=== PATIENT | male | born 1950 | race African-American/Black ===

== ENCOUNTER → 2018-06-16 09:58 | Outpatient (CLI) | payer BC, SELFPAY ==
[2018-06-16 10:21] LABS: Blood Urea Nitrogen 14 mg/dL (7-18); Creatinine,Serum 0.79 mg/dL (0.70-1.30); Estimated Glomerular Filt Rate 97 ml/min (>60); GFR (African American) 118 ML/MIN (>60)
--- NOTE | 2018-06-16 10:40 | CT_ITS ---
CT abdomen pelvis w con CLINICAL INDICATION: ITS.REASON: HEAMATURIA ORDERING PHYSICIAN: Damian Saini MD PATIENT AGE: 68 years COMPARISON: None TECHNIQUE: Axial images obtained with sagittal and coronal reformats. All CT scans at the facility use one or more dose reduction, viz: automated exposure control, ma/kV adjustment per patient size (including targeted exams where dose is matched to indication, i.e. head), or iterative reconstruction technique. PROCEDURE: Oral Contrast: None IV Contrast: 75 mL's Optiray 350. FINDINGS: There is elevation of the left hemidiaphragm with minimal atelectatic change. The liver, spleen, adrenal glands, and pancreas have an unremarkable appearance. No renal or ureteral calculi. No hydronephrosis. A 1.8 cm ossific density is present along the lower pole of left kidney consistent with a renal cyst. No suspicious renal masses. The urinary bladder has an unremarkable appearance without obvious stone. The prostate is slightly enlarged at 4.5 cm. There is a moderate amount of retained colonic feces throughout the colon. No intestinal obstruction or free air is evident. There is a percutaneous gastrostomy tube in place which is in good position. No evidence of appendicitis or diverticulitis. There is a small umbilical hernia which contains fat. There is mild lumbar curvature convex right. IMPRESSION: 1. No evidence of renal or ureteral calculi. No suspicious renal mass 2. 1.8 cm left renal cyst. 3. Constipation
== END ==
PROVIDERS: Visit Provider Family Medicine
DX: R31.9 Hematuria, unspecified (principal)
CPT/HCPCS: 36415; 74177; 82565; 84520; Q9967

== ENCOUNTER → 2018-11-28 11:00 | Outpatient (POV) | payer BC, SELFPAY | PROVIDERS: Visit Provider Dermatology | DX: Z00.00 Encounter for general adult medical examination without abnormal findings (principal) ==

== ENCOUNTER 2023-10-26 15:00 | Outpatient (CLI) | payer BC, SELFPAY ==
--- NOTE | 2023-10-26 15:14 | XR_ITS ---
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 The right lung is clear. There is no evidence of effusion or other pleural disease. The mediastinum has a normal appearance. The cardiac silhouette is unremarkable. IMPRESSION: No acute process. Reviewed, Interpreted and Dictated by Nba Payne MD Transcribed by Taryn Javier Authenticated and [facility]
== END 2023-10-26 23:59 | disposition home or self-care (01) ==
LOC: RAD 15:05
PROVIDERS: PCP Family Medicine
DX: R06.09 Other forms of dyspnea (principal)
CPT/HCPCS: 71046

== ENCOUNTER 2024-01-23 09:16 | Outpatient (CLI) | payer BC, SELFPAY ==
[2024-03-13 11:15] LABS: Miscellaneous Test SCANNED IMAGE
== END 2024-01-23 23:59 | disposition home or self-care (01) ==
LOC: LAB 09:29
PROVIDERS: PCP Family Medicine
DX: J47.9 Bronchiectasis, uncomplicated (principal)
CPT/HCPCS: 87116; 87206

== ENCOUNTER 2024-06-16 19:07 | Observation (INO) | payer BC, SELFPAY ==
[2024-06-16] VITALS (12 sets, daily range): BP systolic 116–154; BP diastolic 67–83; PULSE 106–118; RESP 16–35; TEMP 38.9–39.4; O2SAT 87–98; BMI 21.9; BMI 22.2
--- NOTE | 2024-06-16 19:27 | ECG_ITS ---
APPROVED REPORT Exam: Resting ECG HR:116 bpm ECG Measurements Heart Rate 116 AXES MT 166 P 66 QRSd 89 QRS -23 QT 317 T 73 QTc 386 Conclusion SINUS TACHYCARDIA POSSIBLE LEFT ATRIAL ENLARGEMENT [-0.1mV P-WAVE IN V1/V2] BORDERLINE LEFT AXIS DEVIATION [QRS AXIS < -20] NONSPECIFIC ST & T-WAVE ABNORMALITY ABNORMAL RHYTHM ECG UNCONFIRMED REPORT Electronically signed by : Nicole Meadows, 06/17/2024 00:11:17
--- NOTE | 2024-06-16 19:27 | XR_ITS ---
PROCEDURE INFORMATION: Exam: XR Chest Exam date and time: 06/16/2024 7:58 PM Age: 74 years old Clinical indication: Shortness of breath; Additional info: SOA cp TECHNIQUE: Imaging protocol: Radiologic exam of the chest. Views: 2 views. COMPARISON: CR XR CHEST 2V 10/26/2023 3:22 PM FINDINGS: Lungs: Lower lobe predominant multifocal opacities. Pleural spaces: No pleural effusion. No pneumothorax. Heart/Mediastinum: No cardiomegaly. Bones/joints: No acute findings. IMPRESSION: Lower lobe predominant multifocal opacities, findings are segment pulmonary edema or infection in the acute setting.
--- NOTE | 2024-06-16 19:28 | ED_ITS ---
<Statement entered by Nicole Meadows MD - 06/16/24 22:12> I was consulted by the JAMI, and we discussed the complexity of problems being addressed. I approved the treatment and management plan for this patient's care in the emergency department, thus performing a substantive portion of the medical decision making. Nicole Meadows MD Discharge Plan Disposition Patient Disposition: Admitted Chief Complaint: Shortness of Breath/Dyspnea Clinical Impressions Clinical Impression: Pneumonia Qualifiers: Pneumonia type: due to unspecified organism Laterality: bilateral Lung location: unspecified part of lung Qualified Code(s): J18.9 - Pneumonia, unspecified organism Discharge ED Provider: Nicole Meadows HPI General Chief Complaint: Shortness of Breath/Dyspnea Stated Complaint: pain when breathing,cough,SOA Time Seen by Provider: 06/16/24 19:22 Mode of Arrival: Ambulatory Source of Information: Spouse and Relative Limitations: No Limitations Description of Symptoms (Recalled from ER Triage Doc. by RN): Patient presents ambulatory to triage with his and daughter. Patient states for the last two days he has been coughing and short of air. Denies N/V. Denies any changes in bowel habits. Patient with a G-tube s/p cancer diagnosis in 2010. States he has had multiple episodes of aspiration since. History of Present Illness HPI narrative: Patient is a 74-year-old male who presents to the ED with complaints of shortness of breath x 3 days. Patient states he frequently gets aspiration pneumonia. He is febrile upon arrival. Related Data Allergies Allergy/AdvReac Type Severity Reaction Status Date / Time No Known Allergies Allergy Verified 06/16/24 19:19 [facility] Disclaimer: The information contained in this section may have been updated after the patient was seen, as this information can be updated by other users. Social History Smoking Status: Never smoker alcohol intake: never current occupational status: unemployed Travel in the last 8 weeks: None ROS Obtained: Yes Systems reviewed as appropriate & no additional complaints except as documented Physical Exam General General appearance: alert Head Head exam: atraumatic and normocephalic Eye Eye exam: Present normal appearance and PERRL; Absent nystagmus ENT ENT exam: Present normal exam Neck Neck exam: Present normal inspection Chest Chest inspection: Present normal inspection and symmetric chest wall rise; Absent tenderness Respiratory Respiratory exam: Present respiratory distress and other (Decreased breath sounds on the right) Cardiovascular Cardiovascular exam: Present tachycardia Abdominal Exam Abdominal exam: Present soft and normal bowel sounds; Absent tenderness Extremities Exam Extremities exam: Present normal inspection and full ROM Back Exam Back exam: Present normal inspection and full ROM; Absent tenderness Neurological Exam Neurological exam: Present alert and oriented X3 Psychiatric Psychiatric exam: Present normal affect and normal mood Skin Skin exam: Present warm and dry HEART Score HEART Score HEART Score assessment performed?: Yes History (anamnesis): Slightly suspicious ECG: Non-specific disturbance Age: >65 years Risk factors: 1-2 risk factors Troponin: </= normal limit HEART Score: 4 Critical Care Critical Care Time Critical Care Time: No Medical Decision Making Hari Inquiry Pt receiving controlled substance: No Hari was queried for this patient: No Vital Signs Vital Signs: 06/16/24 19:12 06/16/24 19:59 06/16/24 20:00 Temperature 102.0 F H Temperature Source Oral Pulse Rate 110 H 109 H Pulse Rate [Radial] 117 H Respiratory Rate 20 17 17 Blood Pressure 130/76 Blood Pressure [L Arm] 116/67 Blood Pressure Mean [L Arm] 83 Blood Pressure Source [L Arm] Automatic Cuff 02 Sat by Pulse Oximetry 87 L 95 96 Oxygen Delivery Method Room Air 06/16/24 20:42 Temperature Temperature Source Pulse Rate 110 H Pulse Rate [Radial] Respiratory Rate Blood Pressure Blood Pressure [L Arm] Blood Pressure Mean [L Arm] Blood Pressure Source [L Arm] 02 Sat by Pulse Oximetry Oxygen Delivery Method Lab Data Labs: Lab Results 06/16/24 19:21: SARS-CoV-2 (PCR) Not detected, Influenza A Untype (PCR) Not detected, Influenza Type B (PCR) Not detected 06/16/24 19:27: VBG pH 7.42 H, VBG pCO2 45.8, VBG pO2 23.9 L, VBG HCO3 29.1, VBG Total CO2 30.5 H, VBG O2 Saturation 41.1 L, VBG Base Excess 4.6 H, VBG Lactic Acid 1.5 06/16/24 19:36: PT 12.6 H, INR 1.14 H, APTT 19.6 L, Sodium 136, Potassium 4.1, Chloride 99, Carbon Dioxide 29, Anion Gap 12.1, BUN 14, Creatinine 0.90, Estimated Creat Clear 52, Estimated GFR 82, Est GFR ( Amer) 100, Glucose 132 H, Calcium 9.4, Total Bilirubin 0.6, AST 34, ALT 23, Alkaline Phosphatase 70, Troponin I < 0.01, NT-Pro-B Natriuret Pep 231, Total Protein 8.3 H, Albumin 4.0, Globulin 4.3 H, Albumin/Globulin Ratio 0.9 L, Procalcitonin 1.07 06/16/24 19:54: WBC 19.4 H, RBC 4.20 L, Hgb 12.0 L, Hct 36.2 L, MCV 86.2, MCH 28.6, MCHC 33.1, RDW 14.1, Plt Count 239, MPV 10.8 H, Neut % (Auto) 90.9 H, L ymph % (Auto) 2.0 L, [place] % (Auto) 6.1, Eos % (Auto) 0.2, Baso % (Auto) 0.2, N eut # (Auto) 17.6 H, Lymph # (Auto) 0.4 L, [place] # (Auto) 1.2 H, Eos # (Auto) 0.0, Baso # (Auto) 0.0, Total Counted 100, Neutrophils % (Manual) 89 H, L ymphocytes % (Manual) 4 L, Monocytes % (Manual) 7, Platelet Estimate Normal, RBC Morphology Normal, Lactate 1.5 06/16/24 20:55: Urine Color Yellow, Urine Appearance Clear, Urine pH 7.5, Ur Specific [place] <= 1.005, Urine Protein Negative, Urine Glucose (UA) Negative, Urine Ketones Negative, Urine Blood Trace-i, Urine Nitrate Negative, Urine Bilirubin Negative, Urine Urobilinogen 0.2, Ur Leukocyte Esterase Negative, Urine RBC Occasional, Urine WBC None, Ur Squamous Epith Cells Occasional, Urine Bacteria None 06/16/24 19:54 06/16/24 19:36 Response Orders (Tests/Meds): ED MEDICATIONS Generic Name Dose Route Start Last Admin Trade Name Freq PRN Reason Stop Dose Admin Lactated Ringer's 1,740 mls @ 870 mls/hr 06/16/24 20:22 06/16/24 20:25 Lactated Ringer's 1000 Ml Bag 30 ml/kg infuse over 2 hr (1740 ml) 06/16/24 22:21 870 mls/hr IV Administration .Q2H ONE Discontinued Medications Generic Name Dose Route Start Last Admin Trade Name Freq PRN Reason Stop Dose Admin Albuterol/Ipratropium 3 ml 06/16/24 19:32 06/16/24 20:41 Ipratropium/Albuterol 3 Ml Neb IH 06/16/24 19:33 3 ml ONCE ONE Administration Cefepime HCl 2 gm/ Sodium 100 mls @ 200 mls/hr 06/16/24 20:25 06/16/24 20:33 Chloride IV 06/16/24 20:54 200 mls/hr ONCE ONE Administration Vancomycin HCl 1,000 mg/ 250 mls @ 125 mls/hr 06/16/24 20:27 06/16/24 20:47 Sodium Chloride IV 06/16/24 20:28 125 mls/hr ONCE ONE Administration Iopamidol 75 ml 06/16/24 20:11 06/16/24 20:22 Iopamidol-370 (76%);100ml Bottle IV 06/16/24 20:12 75 ml ONCE ONE Administration Sodium Chloride 50 ml 06/16/24 20:11 06/16/24 20:22 0.9 % Sodium Chloride 50 Ml Vial IV 06/16/24 20:12 50 ml ONCE ONE Administration Sodium Chloride 10 ml 06/16/24 20:11 06/16/24 20:22 Sodium Chloride 0.9% 10ml Syr (Rad Only) IV 06/16/24 20:12 10 ml ONCE ONE Administration ORDERS Category Date Time Status CTA Chest [CT angio chest PE protocol] Stat Cat Scan 06/16/24 19:29 Completed CXR 2 view (NOT portable) [XR chest 2V] Stat Exams 06/16/24 19:27 Completed Activated Partial Thrombo Time Stat Lab 06/16/24 19:36 Completed BNP [NT Pro Brain Natriuretic Pep.] Stat Lab 06/16/24 19:36 Completed Complete Blood Count Auto Diff Stat Lab 06/16/24 19:54 Completed Comprehensive Metabolic Panel Stat Lab 06/16/24 19:36 Completed Lactic Acid Stat Lab 06/16/24 19:54 Completed Procalcitonin Stat Lab 06/16/24 19:36 Completed Prothrombin Time INR Stat Lab 06/16/24 19:36 Completed Rapid PCR Covid and Flu A/B Stat Lab 06/16/24 19:21 Completed Trop I [Troponin I] Stat Lab 06/16/24 19:36 Completed Troponin I Q3H Lab 06/16/24 23:15 Ordered Troponin I Q3H Lab 06/17/24 02:15 Ordered Urinalysis and Microscopic Stat Lab 06/16/24 20:55 Completed Blood Culture Stat Micro 06/16/24 19:54 Received VBG [Venous Blood Gas] Stat RT 06/16/24 19:27 Completed MDM Narrative Medical Decision Narrative: In summary, patient is a 74-year-old male PMHx pulmonary fibrosis, tonsillar cancer in 2010, pneumatosis, who presents to the ED for shortness of breath and fever. Patient's spouse reports that patient frequently gets aspiration pneumonia. Patient follows with for his pulmonary fibrosis, most recent CT scan was in April. Upon initial exam, patient is alert, oriented and cooperative. Patient is hemodynamically stable. Physical exam remarkable for decreased breath sounds on the right. Patient is tachycardic, O2 saturation on room air 88%, he is tachypneic. Differential diagnosis includes ACS, pneumonia, dissection, no pneumothorax, infectious process, among others. Initial workup will be conducted with hematologic labs, EKG, chest x-ray, CT and respiratory swab. EKG remarkable for sinus tachycardia rate 116, QT 386, no STEMI. Initial inventions include placing patient on 3L NC, DuoNeb administration. Sepsis bolus administered. Initial workup reviewed by me. Hematologic labs remarkable for CMP unremarkable for any actual abnormalities. CBC remarkable for leukocytosis, WBC 19.4, stable H&H. COVID and influenza swab negative. Troponin < 0.01. I independently and informally interpreted the chest x-ray as right-sided pneumonia. See final read. Vanc & cefepime started. Chest CT remarkable for no pulmonary embolism, multifocal interstitial and consolidative opacities Due to multifocal pneumonia and new oxygen requirement patient admitted to hospital medicine for further evaluation.
--- NOTE | 2024-06-16 19:29 | CT_ITS ---
PROCEDURE INFORMATION: Exam: CTA Chest With Contrast Exam date and time: 06/16/2024 8:20 PM Age: 74 years old Clinical indication: Shortness of breath; Additional info: MERLE cheng TECHNIQUE: Imaging protocol: Computed tomographic angiography of the chest with contrast. Exam focused on the arteries. 3D rendering (Not supervised by radiologist): MIP and/or 3D reconstructed images were created by the technologist. Radiation optimization: All CT scans at this facility use at least one of these dose optimization techniques: automated exposure control; mA and/or kV adjustment per patient size (includes targeted exams where dose is matched to clinical indication); or iterative reconstruction. Contrast material: ISOVUE; Contrast volume: 75 ml; Contrast route: INTRAVENOUS (IV); COMPARISON: CR XR CHEST 2V 06/16/2024 7:58 PM FINDINGS: Tubes, catheters and devices: Percutaneous gastrostomy tube terminating within the stomach. Pulmonary arteries: Limited evaluation of segmental/subsegmental pulmonary arteries secondary to motion artifact. Within limits of the exam, no definitively identifiable pulmonary artery embolism. Aorta: Mild atherosclerosis. No aortic aneurysm. No aortic dissection. Lungs: Diffuse multifocal interstitial and consolidative opacities. Mild cylindrical bronchiectasis. Pleural spaces: Unremarkable. No pneumothorax. No pleural effusion. Heart: Unremarkable. No cardiomegaly. No pericardial effusion. Lymph nodes: Unremarkable. No enlarged lymph nodes. Bones/joints: Degenerative changes. No acute fracture. Soft tissues: Unremarkable. IMPRESSION: 1. Limited evaluation of segmental/subsegmental pulmonary arteries secondary to motion artifact. Within limits of the exam, no definitively identifiable pulmonary artery embolism. 2. Diffuse multifocal interstitial and consolidative opacities, which may be seen with pulmonary edema, infection, or interstitial pneumonia in the acute setting. Recommend follow-up imaging after treatment to ensure resolution.
[2024-06-16 19:32] LABS: Coronavirus 19, PCR Not Detected (NotDetected); Influenza A, PCR Not Detected (NotDetected); Influenza B, PCR Not Detected (NotDetected)
[2024-06-16 19:55] LABS: Chloride 99 mmol/L (98-107)
[2024-06-16 19:56] LABS: Potassium 4.1 mmoL/L (3.5-5.1); Sodium 136 mmol/L (136-145)
[2024-06-16 19:58] LABS: Alanine Aminotransferase 23 U/L (12-78); Anion Gap 12.1 mEq/L (5-15); Aspartate Amino Transferase 34 U/L (17-59); Blood Urea Nitrogen 14 mg/dl (9-20); Carbon Dioxide 29 mmol/L (22.0-30.0); Creatinine Clearance Estimated 52 mL/min (50-200); Estimated Glomerular Filt Rate 82 ml/min (>60); GFR (African American) 100 ML/MIN (>60)
[2024-06-16 19:59] LABS: Albumin/Globulin Ratio 0.9 (1.1-1.8); Alkaline Phosphatase 70 U/L (38-126); Bilirubin,Total 0.6 mg/dl (0.2-1.3); Calcium 9.4 mg/dl (8.4-10.2); Globulin 4.3 g/dL (1.3-3.2); Glucose 132 mg/dl (74-100); Total Protein,Serum 8.3 g/dl (6.3-8.2)
[2024-06-16 20:01] LABS: Basophils % 0.2 % (0.1-2.0); Eosinophils % 0.2 % (0.1-12.0); Hematocrit 36.2 % (42.0-52.0); Lymphocytes # 0.4 K/mm3 (0.7-4.5); Mean Corpuscular HGB Conc 33.1 g/dL (31.8-35.4); Mean Corpuscular Hemoglobin 28.6 pg (27.0-31.2); Mean Corpuscular Volume 86.2 fl (80-94); Mean Platelet Volume 10.8 fl (7.4-10.4); Monocytes # 1.2 K/mm3 (0.1-1.0); Monocytes % 6.1 % (1.7-9.3); Neutrophils # 17.6 K/mm3 (1.8-7.8); Neutrophils % 90.9 % (37.0-80.0); Platelet Count 239 K/mm3 (142-424); Red Cell Distribution Width 14.1 % (11.5-17.5); White Blood Count 19.4 K/mm3 (4.8-10.8)
[2024-06-16 20:08] LABS: Lactic Acid 1.5 mmol/L (0.7-2.1); MANUAL DIFFERENTIAL MANUAL DIFFERENTIAL (MANUAL DIFF)
[2024-06-16 20:16] LABS: INR 1.14 (0.9-1.1); Prothrombin Time 12.6 seconds (10.1-12.5)
[2024-06-16 20:18] LABS: Activated Partial Thrombo Time 19.6 seconds (22.8-30.6)
[2024-06-16] MEDS: SODIUM CHLORIDE 0.9% 10ML SYR (RAD ONLY) 10 ML IV (20:22)
[2024-06-16] MEDS: 0.9 % SODIUM CHLORIDE 50 ML VIAL IV (20:22)
[2024-06-16] MEDS: IOPAMIDOL-370 (76%);100ML BOTTLE 75 ML IV (20:22)
[2024-06-16 20:24] LABS: NT Pro Brain Natriuretic Pep. 231 pg/mL (0-450)
[2024-06-16] MEDS: LACTATED RINGERS 870 ML IV (20:25)
[2024-06-16 20:27] LABS: Troponin I < 0.01 ng/ml (0.00-0.034)
--- NOTE | 2024-06-16 20:31 | PC.NURSE ---
Gordon with [facility] pharmacy notified for vanc consult; verified that Vancomycin 1gram is okay to give.
[2024-06-16 20:33] LABS: Lactate Venous 1.5 mmol/L (0.4-2.0); VBG Base Excess 4.6 mmol/L (-2.4-2.3); VBG HCO3 29.1 mmol/L (23-30); VBG Oxygen Saturation 41.1 % (50-70); VBG PCO2 45.8 mmol/L (35-51); VBG PH 7.42 mmol/L (7.31-7.41); VBG PO2 23.9 mmol/L (28-40); VBG Total CO2 30.5 mmol/L (23-27)
[2024-06-16] MEDS: CEFEPIME HCL 2 GM in 0.9 % SODIUM CHLORIDE 100 ML IV (20:33)
[2024-06-16] MEDS: IPRATROPIUM/ALBUTEROL 3 ML NEB IH (20:41)
[2024-06-16] MEDS: VANCOMYCIN HCL 1,000 MG in 0.9 % SODIUM CHLORIDE 250 ML 125 MG IV (20:47)
[2024-06-16 20:58] LABS: Lymphocytes % 4 % (10-50); Monocytes % 7 % (2-9); Neutrophils % 89 % (42-76); Total Cells Counted 100
[2024-06-16 20:59] LABS: Platelet Estimate Normal; RBC Morphology Normal
[2024-06-16 21:02] LABS: Microscopic, Urine URINE MICROSCOPIC (MICROSCOPIC)
[2024-06-16 21:04] LABS: Procalcitonin 1.07 ng/mL (0.0-2.0)
[2024-06-16 21:05] LABS: Appearance,Urine CLEAR (Clear); Bilirubin,Urine Negative (Negative); Blood, Urine TRACE-I (Negative); Color,Urine YELLOW (Yellow); Glucose,Urine (UA) Negative (Negative); Ketones,Urine Negative (Negative); Leukocyte Esterase,Urine Negative (Negative); Nitrate,Urine Negative (Negative); PH,Urine 7.5 (5.0-8.5); Protein,Urine Negative (Negative); Specific Gravity, Urine <= 1.005 (1.005-1.030); Urobilinogen,Urine 0.2 EU/dl (0.2)
[2024-06-16 21:16] LABS: RBC,Urine Occasional #/hpf (0-3); Squamous Epithelial Cell,Urine Occasional #/hpf (0-5)
[2024-06-16] MEDS: ACETAMINOPHEN 1,000MG/100ML VIAL 1000 MG IV (21:36)
--- NOTE | 2024-06-16 21:42 | PC.NURSE ---
report called to Marin HUFFMAN
--- NOTE | 2024-06-16 22:10 | PC.NURSE ---
Patient arrived to floor via stretcher from ED at 22:00.
[2024-06-16 22:18] LABS: Adenovirus,PCR Not Detected (NotDetected); Bordetella Pertussis Not Detected (NotDetected); Chlamydophila Pneumoniae, PCR Not Detected (NotDetected); Coronavirus 19, PCR Not Detected (NotDetected); Coronavirus 229E Not Detected (NotDetected); Coronavirus NL63 Not Detected (NotDetected); Coronavirus OC43 Not Detected (NotDetected); Coronovirus HKU1,PCR Not Detected (NotDetected); Human Metapneumovirus Not Detected (NotDetected); Influenza A, PCR Not Detected (NotDetected); Influenza AH1, 2009 Not Detected (NotDetected); Influenza AH1, PCR Not Detected (NotDetected); Influenza AH3,PCR Not Detected (NotDetected); Influenza B, PCR Not Detected (NotDetected); Mycoplasma Pneumoniae, PCR Not Detected (NotDetected); Parainfluenza 1, PCR Not Detected (NotDetected); Parainfluenza 2, PCR Not Detected (NotDetected); Parainfluenza 3, PCR Not Detected (NotDetected); Parainfluenza 4, PCR Not Detected (NotDetected); Respiratory Syncytial Virus Not Detected (NotDetected)
[2024-06-16 23:45] LABS: Troponin I < 0.01 ng/ml (0.00-0.034)
--- NOTE | 2024-06-16 23:45 | P.HP_ITS ---
<Statement entered by Isaac Gautam MD - 06/19/24 14:24> I personally examined the patient and agree with the plan of care outlined by the MECHANICAL DRAFTER. History of Present Illness *Admission Date: 06/16/24 *Reason for visit:: Shortness of breath and cough *History of present illness: This is a 74-year-old male with past medical history of tonsillar cancer, pulmonary fibrosis, pneumatosis who presents emergency department today with complaints of cough and fever. He presents with his and daughter and aid in his collateral although patient can give good history. 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 States that he gets most of his nutrition through his [employer] button. Has intermittent problems with silent aspiration. States that he started having productive cough and chills in the last several days.. He recently had follow-up with check viewer at for his pulmonary fibrosis, last CT scan was in April. Upon arrival to the emergency department he was noted to be tachycardic, mildly hypoxic and tachypneic. Also noted to have a fever of 102.0. Emergency department workup notable for leukocytosis with a white blood cell count of 19, lactic of 1.5, procalcitonin of 1.07. CT chest imaging notable for diffuse multifocal interstitial and consolidative opacities which may represent pulmonary edema or infection. Respiratory pathogen panel negative. Given the above-mentioned findings, blood cultures were obtained and antibiotics were initiated. He is admitted to the hospitalist. [facility] Disclaimer: The information contained in this section may have been updated after the patient was seen, as this information can be updated by other users. Medical History (Updated 06/16/24 @ 23:56 by DARRYL Morgan) Feeding by G-tube Tonsil cancer Surgical History (Updated 06/16/24 @ 22:52 by Katina Christianson RN) History of tonsillectomy History of appendectomy Social History (Updated 06/16/24 @ 22:52 by Katina Christianson RN) Smoking Status: Never smoker alcohol intake: never current occupational status: unemployed Travel in the last 8 weeks: None Have you lived/traveled outside [place] in past 30 days?: No Contact w/someone who lives/traveled outside US past 30 days?: No Exposure to someone with infectious disease in past 14 days?: No Do you have a fever (greater than 100.4 F or 38 C)?: No Have you tested positive for COVID-19: No Exposed to someone with COVID-19 in past 14 days?: No Do you have a sore throat?: No Do you have a cough?: Yes Do you have any weakness?: Yes Are you experiencing any nausea/vomitting?: No Do you have any diarrhea?: No Are you experiencing any unusual bleeding?: No Do you have any muscle aches/pain?: No Do you have any abdominal pain?: No Are you experiencing loss of taste or smell?: No Other Medical History Have you received the Flu Vaccine for this season: No Have you received the Pneumonia Vaccine: Yes Review of Systems Review of Systems Review of systems:: pertinent systems reviewed and negative unless documented below Review of systems (narrative): Negative except for HPI Meds Home Medications and Allergies New Prescriptions to Start Prescriptions: Allergies Allergy/AdvReac Type Severity Reaction Status Date / Time No Known Allergies Allergy Verified 06/16/24 19:19 Exam Data for Last 24 hours Vital signs and Labs for Last 24 Hours: Temp Pulse Resp BP Pulse Ox O2 Del Method O2 Flow Rate 102.6 F H 106 H 16 143/75 H 98 Nasal Cannula 2 06/16/24 22:12 06/16/24 22:12 06/16/24 22:12 06/16/24 22:12 06/16/24 22:12 06/16/24 22:12 06/16/24 22:12 Laboratory Results - last 24 hr 06/16/24 19:21: SARS-CoV-2 (PCR) Not detected, Influenza A Untype (PCR) Not detected, Influenza Type B (PCR) Not detected 06/16/24 19:27: VBG pH 7.42 H, VBG pCO2 45.8, VBG pO2 23.9 L, VBG HCO3 29.1, VBG Total CO2 30.5 H, VBG O2 Saturation 41.1 L, VBG Base Excess 4.6 H, VBG Lactic Acid 1.5 06/16/24 19:36: PT 12.6 H, INR 1.14 H, APTT 19.6 L, Sodium 136, Potassium 4.1, Chloride 99, Carbon Dioxide 29, Anion Gap 12.1, BUN 14, Creatinine 0.90, Estimated Creat Clear 52, Estimated GFR 82, Est GFR ( Amer) 100, Glucose 132 H, Calcium 9.4, Total Bilirubin 0.6, AST 34, ALT 23, Alkaline Phosphatase 70, Troponin I < 0.01, NT-Pro-B Natriuret Pep 231, Total Protein 8.3 H, Albumin 4.0, Globulin 4.3 H, Albumin/Globulin Ratio 0.9 L, Procalcitonin 1.07 06/16/24 19:54: WBC 19.4 H, RBC 4.20 L, Hgb 12.0 L, Hct 36.2 L, MCV 86.2, MCH 28.6, MCHC 33.1, RDW 14.1, Plt Count 239, MPV 10.8 H, Neut % (Auto) 90.9 H, Lymph % (Auto) 2.0 L, [place] % (Auto) 6.1, Eos % (Auto) 0.2, Baso % (Auto) 0.2, Neut # (Auto) 17.6 H, Lymph # (Auto) 0.4 L, [place] # (Auto) 1.2 H, Eos # (Auto) 0.0, Baso # (Auto) 0.0, Total Counted 100, Neutrophils % (Manual) 89 H, Lymphocytes % (Manual) 4 L, Monocytes % (Manual) 7, Platelet Estimate Normal, RBC Morphology Normal, Lactate 1.5 06/16/24 20:55: Urine Color Yellow, Urine Appearance Clear, Urine pH 7.5, Ur Specific [place] <= 1.005, Urine Protein Negative, Urine Glucose (UA) Negative, Urine Ketones Negative, Urine Blood Trace-i, Urine Nitrate Negative, Urine Bilirubin Negative, Urine Urobilinogen 0.2, Ur Leukocyte Esterase Negative, Urine RBC Occasional, Urine WBC None, Ur Squamous Epith Cells Occasional, Urine Bacteria None 06/16/24 23:15: Troponin I < 0.01 I & O for Last 24 hours: Intake & Output 06/13/24 06/14/24 06/15/24 06/16/24 23:59 23:59 23:59 23:59 Weight 59.058 kg Constitutional Constitutional: no acute distress *Routine HEENT Exam Head: Present normocephalic Eye: Present EOMI and PERRL ENT: Present mucous membranes moist *Routine Neck Exam Neck: Present supple; Absent lymphadenopathy *Routine Respiratory Exam Respiratory: Present normal respiratory effort Comments: Coarse lungs sounds with coarse cough *Routine Cardiovascular Exam Cardiovascular: Present RRR *Routine Abdominal Exam Abdominal: Present soft and normoactive bowel sounds; Absent tenderness *Routine Rectal Exam Rectal:: deferred *Routine Genitalia Exam Genitalia:: deferred *Routine Extremities Exam Extremities: Absent cyanosis, clubbing or edema *Routine Skin Exam Skin: Present warm; Absent rash *Routine Neurological Exam Neurological: Present alert and oriented X3 Assessment and Plan *Assessment and plan (1) Sepsis: Status: Acute Qualifiers: Sepsis acute organ dysfunction status: without acute organ dysfunction Category: Medical Code(s): A41.9 - Sepsis, unspecified organism (2) Pneumonia: Status: Acute Qualifiers: Laterality: bilateral Lung location: unspecified part of lung Pneumonia type: due to unspecified organism Qualified Code(s): J18.9 - Pneumonia, unspecified organism Category: Medical Code(s): J18.9 - Pneumonia, unspecified organism (3) Acute respiratory failure with hypoxia: Status: Acute Category: Medical Code(s): J96.01 - Acute respiratory failure with hypoxia (4) Dysphagia: Status: Acute Category: Medical Code(s): R13.10 - Dysphagia, unspecified Plan #Sepsis Meets criteria for leukocytosis, tachycardia, fever and tachypnea Multifocal pneumonia noted on chest imaging Received 30 mg/kg bolus of fluids in the emergency department Blood cultures obtained Sputum culture Continue broad-spectrum antibiotic coverage for likely aspiration pneumonia. Continue vancomycin and cefepime, will add flagyl for anaerobic coverage Antipyretics as needed #Acute respiratory failure with hypoxia #Pneumonia Likely aspiration given history. Continue antibiotic treatment as above Initially required oxygen but oxygenating well on room air at this Pulmonary toilet #Dysphagia Patient request to continue with liquid diet given no solitary function Will obtain speech study with speech therapy
[2024-06-17] VITALS: TEMP 36.9
[2024-06-17 00:17] LABS: Rhinovirus/Enterovirus Detected (NotDetected)
--- NOTE | 2024-06-17 00:51 | PC.NURSE ---
Pt states he takes no medications at home
[2024-06-17 03:11] LABS: Troponin I < 0.01 ng/ml (0.00-0.034)
[2024-06-17 04:00] VITALS: BP 100/58; PULSE 77; RESP 16; TEMP 36.8; O2SAT 97; BMI 22.2
--- NOTE | 2024-06-17 05:04 | PC.NURSE ---
Pt A&OX4. He has remained of 2L nasal cannula with O2 sats >92%. Lung sounds clear and bowel sounds active. G-Tube in place. Receiving IV ABX. He has ambulated to bathroom with standby assist. Family has remained at bedside. No complaints at this time, call light within reach.
[2024-06-17 07:08] LABS: Basophils % 0.3 % (0.1-2.0); Eosinophils # 0.1 K/mm3 (0.0-0.4); Eosinophils % 0.5 % (0.1-12.0); Hematocrit 36.3 % (42.0-52.0); Hemoglobin 11.9 g/dL (14.1-18.0); Lymphocytes # 1.1 K/mm3 (0.7-4.5); Lymphocytes % 7.2 % (10-50); Mean Corpuscular HGB Conc 32.8 g/dL (31.8-35.4); Mean Corpuscular Hemoglobin 28.4 pg (27.0-31.2); Mean Corpuscular Volume 86.6 fl (80-94); Mean Platelet Volume 10.2 fl (7.4-10.4); Monocytes # 1.8 K/mm3 (0.1-1.0); Monocytes % 11.6 % (1.7-9.3); Neutrophils # 12.5 K/mm3 (1.8-7.8); Neutrophils % 79.9 % (37.0-80.0); Platelet Count 205 K/mm3 (142-424); Red Blood Count 4.19 M/mm3 (4.60-6.20); White Blood Count 15.7 K/mm3 (4.8-10.8)
[2024-06-17 07:18] LABS: MANUAL DIFFERENTIAL MANUAL DIFFERENTIAL (MANUAL DIFF)
[2024-06-17] MEDS: IBUPROFEN 200MG/10ML SUSP UDC 600 MG PO (07:51)
[2024-06-17 08:00] VITALS: BP 112/56; PULSE 94; RESP 16; TEMP 37.3; O2SAT 93; O2SAT 95
[2024-06-17 08:41] LABS: Chloride 101 mmol/L (98-107); Sodium 136 mmol/L (136-145)
[2024-06-17 08:44] LABS: Blood Urea Nitrogen 13 mg/dl (9-20); Calcium 8.8 mg/dl (8.4-10.2); Carbon Dioxide 28 mmol/L (22.0-30.0); Creatinine Clearance Estimated 53 mL/min (50-200); Estimated Glomerular Filt Rate 94 ml/min (>60); GFR (African American) 114 ML/MIN (>60); Glucose 87 mg/dl (74-100)
--- NOTE | 2024-06-17 09:33 | P.CONPHA_ITS ---
Pharmacy Consult Date: 06/17/24 Time: 09:34 Referring provider: DR. POOL Reason for Consult:: VANCOMYCIN Allergies Allergy/AdvReac Type Severity Reaction Status Date / Time No Known Allergies Allergy Verified 06/16/24 19:19 Home Medications ?Medication ?Instructions ?Recorded ?Confirmed ?Type No Known Home Medications 06/17/24 06/17/24 History New Prescriptions to Start Prescriptions: Height: 1.63 m Weight: 59.058 kg Laboratory Results:: Laboratory Results - last 24 hr 06/16/24 19:21: SARS-CoV-2 (PCR) Not detected, Influenza A Untype (PCR) Not detected, Influenza Type B (PCR) Not detected 06/16/24 19:27: VBG pH 7.42 H, VBG pCO2 45.8, VBG pO2 23.9 L, VBG HCO3 29.1, VBG Total CO2 30.5 H, VBG O2 Saturation 41.1 L, VBG Base Excess 4.6 H, VBG Lactic Acid 1.5 06/16/24 19:36: PT 12.6 H, INR 1.14 H, APTT 19.6 L, Sodium 136, Potassium 4.1, Chloride 99, Carbon Dioxide 29, Anion Gap 12.1, BUN 14, Creatinine 0.90, Estimated Creat Clear 52, Estimated GFR 82, Est GFR ( Amer) 100, Glucose 132 H, Calcium 9.4, Total Bilirubin 0.6, AST 34, ALT 23, Alkaline Phosphatase 70, Troponin I < 0.01, NT-Pro-B Natriuret Pep 231, Total Protein 8.3 H, Albumin 4.0, Globulin 4.3 H, Albumin/Globulin Ratio 0.9 L, Procalcitonin 1.07 06/16/24 19:54: WBC 19.4 H, RBC 4.20 L, Hgb 12.0 L, Hct 36.2 L, MCV 86.2, MCH 28.6, MCHC 33.1, RDW 14.1, Plt Count 239, MPV 10.8 H, Neut % (Auto) 90.9 H, Lymph % (Auto) 2.0 L, [place] % (Auto) 6.1, Eos % (Auto) 0.2, Baso % (Auto) 0.2, Neut # (Auto) 17.6 H, Lymph # (Auto) 0.4 L, [place] # (Auto) 1.2 H, Eos # (Auto) 0.0, Baso # (Auto) 0.0, Total Counted 100, Neutrophils % (Manual) 89 H, Lymphocytes % (Manual) 4 L, Monocytes % (Manual) 7, Platelet Estimate Normal, RBC Morphology Normal, Lactate 1.5 06/16/24 20:13: Chlamy pneumoniae PCR Not detected, Adenovirus (PCR) Not detected, B. pertussis DNA (PCR) Not detected, Coronavirus OC43 (PCR) Not detected, Coronavirus HKU1 (PCR) Not detected, Coronavirus 229E (PCR) Not detected, SARS-CoV-2 (PCR) Not detected, Coronavirus NL63 (PCR) Not detected, Human Metapneumovir PCR Not detected, Influenza A (H1) PCR Not detected, Influ A (H1N1/09) PCR Not detected, Influenza A (H3) PCR Not detected, Influenza Type A (PCR) Not detected, Influenza Type B (PCR) Not detected, M. pneumoniae (PCR) Not detected, Parainfluenza 1 (PCR) Not detected, Parainfluenza 2 (PCR) Not detected, Parainfluenza 3 (PCR) Not detected, Parainfluenza 4 (PCR) Not detected, RSV (PCR) Not detected, Entero/Rhino (PCR) Detected A 06/16/24 20:55: Urine Color Yellow, Urine Appearance Clear, Urine pH 7.5, Ur S pecific [place] <= 1.005, Urine Protein Negative, Urine Glucose (UA) Negative, Urine Ketones Negative, Urine Blood Trace-i, Urine Nitrate Negative, Urine Bilirubin Negative, Urine Urobilinogen 0.2, Ur Leukocyte Esterase Negative, Urine RBC Occasional, Urine WBC None, Ur Squamous Epith Cells Occasional, Urine Bacteria None 06/16/24 23:15: Troponin I < 0.01 06/17/24 02:40: Troponin I < 0.01 06/17/24 06:39: WBC 15.7 H, RBC 4.19 L, Hgb 11.9 L, Hct 36.3 L, MCV 86.6, MCH 28.4, MCHC 32.8, RDW 14.0, Plt Count 205, MPV 10.2, Neut % (Auto) 79.9, Lymph % (Auto) 7.2 L, [place] % (Auto) 11.6 H, Eos % (Auto) 0.5, Baso % (Auto) 0.3, Neut # (Auto) 12.5 H, Lymph # (Auto) 1.1, [place] # (Auto) 1.8 H, Eos # (Auto) 0.1, Baso # (Auto) 0.0, Sodium 136, Potassium 4.0, Chloride 101, Carbon Dioxide 28, Anion Gap 11.0, BUN 13, Creatinine 0.80, Estimated Creat Clear 53, Estimated GFR 94, Est GFR ( Amer) 114, Glucose 87 D, Calcium 8.8 Medical History: Medical History (Updated 06/16/24 @ 23:56 by Malinda Rod[facility]guez [facility]) Feeding by G-tube Tonsil cancer Assessment and Plan Assessment and plan all Dx Assessment and Plan for all problems:: Pharmacokinetic dosing service Objective: Patient: Floor: Age: 74 yo Serum creatinine: 1 mg/dL Height: 64.2 Inches Weight (kg): 59 Assessment: IBW (kg): 59.66 Dosing wt(kg): 59 Estimated Creatinine clearance (ml/min): 53.3 CRCL method: Cockcroft and Gault using ibw(default). Drug selected: Vancomycin Loading dose (mg): 0 Vd (liters): 47.2 (factor used: 0.8 L/kg) Viraj (hr-1): 0.049 Half life (hrs): 14.15 Recommended dose: 1000 mg Interval: 18 hrs Infusion time (hrs): 2.0 Predicted peak (mcg/mL): 34.4 Predicted trough (mcg/mL): 15.71 Total body weight is being used for vancomycin dosing. Recommendations: Give Vancomycin 1000 mg q 18 hrs with an expected Cpeak of 34.4 mcg/ml and an expected Ctrough of 15.71 mcg/ml ----Vanco only - ignore for aminoglycosides----- CLvanco= 2.31 L/hr AUC 0-24 /CATHI Data: CATHI 0.5 mcg/mL: AUC/CATHI: 1154.4 CATHI 1.0 mcg/mL: AUC/CATHI: 577.2 --------- CATHI 1.5 mcg/mL: AUC/CATHI: 384.8 CATHI 2.0 mcg/mL: AUC/CATHI: 288.6
[2024-06-17 09:37] LABS: Lymphocytes % 8 % (10-50); Monocytes % 10 % (2-9); Neutrophils % 82 % (42-76); Platelet Estimate Normal; RBC Morphology Normal; Total Cells Counted 100
[2024-06-17] MEDS: CEFEPIME HCL 1 GM in 0.9 % SODIUM CHLORIDE 50 ML IV (10:13)
[2024-06-17 10:18] VITALS: O2SAT 94
[2024-06-17] MEDS: SODIUM CHLORIDE 3% 15ML NEB 3 ML IH (11:48)
--- NOTE | 2024-06-17 11:54 | EXP.DC.SUM ---
General Admission date:: 06/16/24 HPI HPI HPI: This is a 74-year-old male with past medical history of tonsillar cancer, pulmonary fibrosis, pneumatosis who presents emergency department today with complaints of cough and fever. He presents with his and daughter and aid in his collateral although patient can give good history. 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 States that he gets most of his nutrition through his [employer] button. Has intermittent problems with silent aspiration. States that he started having productive cough and chills in the last several days.. He recently had follow-up with creative resource manager at for his pulmonary fibrosis, last CT scan was in April. Upon arrival to the emergency department he was noted to be tachycardic, mildly hypoxic and tachypneic. Also noted to have a fever of 102.0. Emergency department workup notable for leukocytosis with a white blood cell count of 19, lactic of 1.5, procalcitonin of 1.07. CT chest imaging notable for diffuse multifocal interstitial and consolidative opacities which may represent pulmonary edema or infection. Respiratory pathogen panel negative. Given the above-mentioned findings, blood cultures were obtained and antibiotics were initiated. He is admitted to the hospitalist. Hospital Course Hospital Course Hospital Course: Juan Luis Cruz is a 74-year-old male with a medical history significant for throat cancer s/p G-tube dependence and recurrent aspiration pneumonia who presented with shortness of breath and is admitted for aspiration pneumonia. #Sepsis #Aspiration pneumonia ? CTA shows multifocal pneumonia, initial WBC 19.4. ? Clinically improved with vancomycin, cefepime. WBC improved to 15.4. ? Weaned from 2 L nasal cannula to room air with appropriate saturations on walk test. ? Patient really wanted to go home today, which is appropriate given significant clinical improvement. ? Sputum cultures obtained and pending. ? Discharged with cefdinir, doxycycline. Advised to follow-up with PCP within 1 week. #History of throat cancer #G-tube dependence #Dysphagia ? G-tube started stable and no signs of infection. Continue regular follow-ups with PCP. Total time spent on discharge: 32 minutes on chart review, counseling, documentation, and direct care with patient. Exam Data for Last 24 hours Vital signs and Labs for Last 24 Hours: Temp Pulse Resp BP Pulse Ox O2 Del Method O2 Flow Rate 99.2 F 94 H 16 112/56 L 94 L Room Air 2 06/17/24 08:00 06/17/24 08:00 06/17/24 08:00 06/17/24 08:00 06/17/24 10:18 06/17/24 11:00 06/17/24 09:00 Laboratory Results - last 24 hr 06/16/24 19:21: SARS-CoV-2 (PCR) Not detected, Influenza A Untype (PCR) Not detected, Influenza Type B (PCR) Not detected 06/16/24 19:27: VBG pH 7.42 H, VBG pCO2 45.8, VBG pO2 23.9 L, VBG HCO3 29.1, VBG Total CO2 30.5 H, VBG O2 Saturation 41.1 L, VBG Base Excess 4.6 H, VBG Lactic Acid 1.5 06/16/24 19:36: PT 12.6 H, INR 1.14 H, APTT 19.6 L, Sodium 136, Potassium 4.1, Chloride 99, Carbon Dioxide 29, Anion Gap 12.1, BUN 14, Creatinine 0.90, Estimated Creat Clear 52, Estimated GFR 82, Est GFR ( Amer) 100, Glucose 132 H, Calcium 9.4, Total Bilirubin 0.6, AST 34, ALT 23, Alkaline Phosphatase 70, Troponin I < 0.01, NT-Pro-B Natriuret Pep 231, Total Protein 8.3 H, Albumin 4.0, Globulin 4.3 H, Albumin/Globulin Ratio 0.9 L, Procalcitonin 1.07 06/16/24 19:54: WBC 19.4 H, RBC 4.20 L, Hgb 12.0 L, Hct 36.2 L, MCV 86.2, MCH 28.6, MCHC 33.1, RDW 14.1, Plt Count 239, MPV 10.8 H, Neut % (Auto) 90.9 H, Lymph % (Auto) 2.0 L, [place] % (Auto) 6.1, Eos % (Auto) 0.2, Baso % (Auto) 0.2, Neut # (Auto) 17.6 H, Lymph # (Auto) 0.4 L, [place] # (Auto) 1.2 H, Eos # (Auto) 0.0, Baso # (Auto) 0.0, Total Counted 100, Neutrophils % (Manual) 89 H, Lymphocytes % (Manual) 4 L, Monocytes % (Manual) 7, Platelet Estimate Normal, RBC Morphology Normal, Lactate 1.5 06/16/24 20:13: Chlamy pneumoniae PCR Not detected, Adenovirus (PCR) Not detected, B. pertussis DNA (PCR) Not detected, Coronavirus OC43 (PCR) Not detected, Coronavirus HKU1 (PCR) Not detected, Coronavirus 229E (PCR) Not detected, SARS-CoV-2 (PCR) Not detected, Coronavirus NL63 (PCR) Not detected, Human Metapneumovir PCR Not detected, Influenza A (H1) PCR Not detected, Influ A (H1N1/09) PCR Not detected, Influenza A (H3) PCR Not detected, Influenza Type A (PCR) Not detected, Influenza Type B (PCR) Not detected, M. pneumoniae (PCR) Not detected, Parainfluenza 1 (PCR) Not detected, Parainfluenza 2 (PCR) Not detected, Parainfluenza 3 (PCR) Not detected, Parainfluenza 4 (PCR) Not detected, RSV (PCR) Not detected, Entero/Rhino (PCR) Detected A 06/16/24 20:55: Urine Color Yellow, Urine Appearance Clear, Urine pH 7.5, Ur Specific [place] <= 1.005, Urine Protein Negative, Urine Glucose (UA) Negative, Urine Ketones Negative, Urine Blood Trace-i, Urine Nitrate Negative, Urine Bilirubin Negative, Urine Urobilinogen 0.2, Ur Leukocyte Esterase Negative, Urine RBC Occasional, Urine WBC None, Ur Squamous Epith Cells Occasional, Urine Bacteria None 06/16/24 23:15: Troponin I < 0.01 06/17/24 02:40: Troponin I < 0.01 06/17/24 06:39: WBC 15.7 H, RBC 4.19 L, Hgb 11.9 L, Hct 36.3 L, MCV 86.6, MCH 28.4, MCHC 32.8, RDW 14.0, Plt Count 205, MPV 10.2, Neut % (Auto) 79.9, Lymph % (Auto) 7.2 L, [place] % (Auto) 11.6 H, Eos % (Auto) 0.5, Baso % (Auto) 0.3, Neut # (Auto) 12.5 H, Lymph # (Auto) 1.1, [place] # (Auto) 1.8 H, Eos # (Auto) 0.1, Baso # (Auto) 0.0, Total Counted 100, Neutrophils % (Manual) 82 H, Lymphocytes % (Manual) 8 L, Monocytes % (Manual) 10 H, Platelet Estimate Normal, RBC Morphology Normal, Sodium 136, Potassium 4.0, Chloride 101, Carbon Dioxide 28, Anion Gap 11.0, BUN 13, Creatinine 0.80, Estimated Creat Clear 53, Estimated GFR 94, Est GFR ( Amer) 114, Glucose 87 D, Calcium 8.8 I & O for Last 24 hours: Intake & Output 06/14/24 06/15/24 06/16/24 06/17/24 23:59 23:59 23:59 23:59 Intake Total 490 / 490 Output Total 0 / 0 Balance 490 / 490 Weight 59.058 kg 59.058 kg Constitutional Constitutional: no acute distress *Routine HEENT Exam Head: Present normocephalic Eye: Present EOMI and PERRL ENT: Present mucous membranes moist *Routine Neck Exam Neck: Present supple; Absent lymphadenopathy *Routine Respiratory Exam Respiratory: Present CTA bilaterally *Routine Cardiovascular Exam Cardiovascular: Present RRR *Routine Abdominal Exam Abdominal: Present soft and normoactive bowel sounds; Absent tenderness *Routine Extremities Exam Extremities: Absent cyanosis, clubbing or edema *Routine Skin Exam Skin: Present warm; Absent rash *Routine Neurological Exam Neurological: Present alert and oriented X3 Results Data Completed and Pending Labs on day of discharge: Labs from last 24 hours 06/17/24 06/17/24 06/16/24 06:39 02:40 23:15 WBC 15.7 H RBC 4.19 L Hgb 11.9 L Hct 36.3 L MCV 86.6 MCH 28.4 MCHC 32.8 RDW 14.0 Plt Count 205 MPV 10.2 Neut % (Auto) 79.9 Lymph % (Auto) 7.2 L [place] % (Auto) 11.6 H Eos % (Auto) 0.5 Baso % (Auto) 0.3 Neut # (Auto) 12.5 H Lymph # (Auto) 1.1 [place] # (Auto) 1.8 H Eos # (Auto) 0.1 Baso # (Auto) 0.0 Total Counted 100 Neutrophils % (Manual) 82 H Lymphocytes % (Manual) 8 L Monocytes % (Manual) 10 H Platelet Estimate Normal RBC Morphology Normal PT INR APTT VBG pH VBG pCO2 VBG pO2 VBG HCO3 VBG Total CO2 VBG O2 Saturation VBG Base Excess VBG Lactic Acid Sodium 136 Potassium 4.0 Chloride 101 Carbon Dioxide 28 Anion Gap 11.0 BUN 13 Creatinine 0.80 Estimated Creat Clear 53 Estimated GFR 94 Est GFR ( Amer) 114 Glucose 87 D Lactate Calcium 8.8 Total Bilirubin AST ALT Alkaline Phosphatase Troponin I < 0.01 < 0.01 NT-Pro-B Natriuret Pep Total Protein Albumin Globulin Albumin/Globulin Ratio Procalcitonin Urine Color Urine Appearance Urine pH Ur Specific [place] Urine Protein Urine Glucose (UA) Urine Ketones Urine Blood Urine Nitrate Urine Bilirubin Urine Urobilinogen Ur Leukocyte Esterase Urine RBC Urine WBC Ur Squamous Epith Cells Urine Bacteria Chlamy pneumoniae PCR Adenovirus (PCR) B. pertussis DNA (PCR) Coronavirus OC43 (PCR) Coronavirus HKU1 (PCR) Coronavirus 229E (PCR) SARS-CoV-2 (PCR) Coronavirus NL63 (PCR) Human Metapneumovir PCR Influenza A (H1) PCR Influ A (H1N1/09) PCR Influenza A (H3) PCR Influenza Type A (PCR) Influenza A Untype (PCR) Influenza Type B (PCR) M. pneumoniae (PCR) Parainfluenza 1 (PCR) Parainfluenza 2 (PCR) Parainfluenza 3 (PCR) Parainfluenza 4 (PCR) RSV (PCR) Entero/Rhino (PCR) 06/16/24 06/16/24 06/16/24 20:55 20:13 19:54 WBC 19.4 H RBC 4.20 L Hgb 12.0 L Hct 36.2 L MCV 86.2 MCH 28.6 MCHC 33.1 RDW 14.1 Plt Count 239 MPV 10.8 H Neut % (Auto) 90.9 H Lymph % (Auto) 2.0 L [place] % (Auto) 6.1 Eos % (Auto) 0.2 Baso % (Auto) 0.2 Neut # (Auto) 17.6 H Lymph # (Auto) 0.4 L [place] # (Auto) 1.2 H Eos # (Auto) 0.0 Baso # (Auto) 0.0 Total Counted 100 Neutrophils % (Manual) 89 H Lymphocytes % (Manual) 4 L Monocytes % (Manual) 7 Platelet Estimate Normal RBC Morphology Normal PT INR APTT VBG pH VBG pCO2 VBG pO2 VBG HCO3 VBG Total CO2 VBG O2 Saturation VBG Base Excess VBG Lactic Acid Sodium Potassium Chloride Carbon Dioxide Anion Gap BUN Creatinine Estimated Creat Clear Estimated GFR Est GFR ( Amer) Glucose Lactate 1.5 Calcium Total Bilirubin AST ALT Alkaline Phosphatase Troponin I NT-Pro-B Natriuret Pep Total Protein Albumin Globulin Albumin/Globulin Ratio Procalcitonin Urine Color Yellow Urine Appearance Clear Urine pH 7.5 Ur Specific [place] <= 1.005 Urine Protein Negative Urine Glucose (UA) Negative Urine Ketones Negative Urine Blood Trace-i Urine Nitrate Negative Urine Bilirubin Negative Urine Urobilinogen 0.2 Ur Leukocyte Esterase Negative Urine RBC Occasional Urine WBC None Ur Squamous Epith Cells Occasional Urine Bacteria None Chlamy pneumoniae PCR Not detected Adenovirus (PCR) Not detected B. pertussis DNA (PCR) Not detected Coronavirus OC43 (PCR) Not detected Coronavirus HKU1 (PCR) Not detected Coronavirus 229E (PCR) Not detected SARS-CoV-2 (PCR) Not detected Coronavirus NL63 (PCR) Not detected Human Metapneumovir PCR Not detected Influenza A (H1) PCR Not detected Influ A (H1N1/09) PCR Not detected Influenza A (H3) PCR Not detected Influenza Type A (PCR) Not detected Influenza A Untype (PCR) Influenza Type B (PCR) Not detected M. pneumoniae (PCR) Not detected Parainfluenza 1 (PCR) Not detected Parainfluenza 2 (PCR) Not detected Parainfluenza 3 (PCR) Not detected Parainfluenza 4 (PCR) Not detected RSV (PCR) Not detected Entero/Rhino (PCR) Detected A 06/16/24 06/16/24 06/16/24 19:36 19:27 19:21 WBC RBC Hgb Hct MCV MCH MCHC RDW Plt Count MPV Neut % (Auto) Lymph % (Auto) [place] % (Auto) Eos % (Auto) Baso % (Auto) Neut # (Auto) Lymph # (Auto) [place] # (Auto) Eos # (Auto) Baso # (Auto) Total Counted Neutrophils % (Manual) Lymphocytes % (Manual) Monocytes % (Manual) Platelet Estimate RBC Morphology PT 12.6 H INR 1.14 H APTT 19.6 L VBG pH 7.42 H VBG pCO2 45.8 VBG pO2 23.9 L VBG HCO3 29.1 VBG Total CO2 30.5 H VBG O2 Saturation 41.1 L VBG Base Excess 4.6 H VBG Lactic Acid 1.5 Sodium 136 Potassium 4.1 Chloride 99 Carbon Dioxide 29 Anion Gap 12.1 BUN 14 Creatinine 0.90 Estimated Creat Clear 52 Estimated GFR 82 Est GFR ( Amer) 100 Glucose 132 H Lactate Calcium 9.4 Total Bilirubin 0.6 AST 34 ALT 23 Alkaline Phosphatase 70 Troponin I < 0.01 NT-Pro-B Natriuret Pep 231 Total Protein 8.3 H Albumin 4.0 Globulin 4.3 H Albumin/Globulin Ratio 0.9 L Procalcitonin 1.07 Urine Color Urine Appearance Urine pH Ur Specific [place] Urine Protein Urine Glucose (UA) Urine Ketones Urine Blood Urine Nitrate Urine Bilirubin Urine Urobilinogen Ur Leukocyte Esterase Urine RBC Urine WBC Ur Squamous Epith Cells Urine Bacteria Chlamy pneumoniae PCR Adenovirus (PCR) B. pertussis DNA (PCR) Coronavirus OC43 (PCR) Coronavirus HKU1 (PCR) Coronavirus 229E (PCR) SARS-CoV-2 (PCR) Not detected Coronavirus NL63 (PCR) Human Metapneumovir PCR Influenza A (H1) PCR Influ A (H1N1/09) PCR Influenza A (H3) PCR Influenza Type A (PCR) Influenza A Untype (PCR) Not detected Influenza Type B (PCR) Not detected M. pneumoniae (PCR) Parainfluenza 1 (PCR) Parainfluenza 2 (PCR) Parainfluenza 3 (PCR) Parainfluenza 4 (PCR) RSV (PCR) Entero/Rhino (PCR) DS: Diagnosis Discharge Diagnosis (1) Sepsis: Status: Acute Code(s): A41.9 - Sepsis, unspecified organism Qualifiers: Sepsis acute organ dysfunction status: without acute organ dysfunction (2) Pneumonia: Status: Acute Code(s): J18.9 - Pneumonia, unspecified organism Qualifiers: Laterality: bilateral Lung location: unspecified part of lung Pneumonia type: due to unspecified organism Qualified Code(s): J18.9 - Pneumonia, unspecified organism (3) Acute respiratory failure with hypoxia: Status: Acute Code(s): J96.01 - Acute respiratory failure with hypoxia (4) Dysphagia: Status: Acute Code(s): R13.10 - Dysphagia, unspecified Meds Home Medications and Allergies Home Medications ?Medication ?Instructions ?Recorded ?Confirmed ?Type cefdinir 300 mg capsule 300 mg PO BID 6 days #12 caps 06/17/24 Rx doxycycline monohydrate 100 mg 100 mg PO BID 6 days #12 caps 06/17/24 Rx capsule New Prescriptions to Start Prescriptions: cefdinir Isaac Gautam doxycycline monohydrate Isaac Gautam Allergies Allergy/AdvReac Type Severity Reaction Status Date / Time No Known Allergies Allergy Verified 06/16/24 19:19 Discharge Plan Disposition Patient Disposition: Home, Self-Care Condition: Fair Follow up Plan Follow up with: Damian Saini MD [Primary Care Provider] - Enter time for follow up (please call for appointment) Prescriptions/Medication Reconciliation: New cefdinir 300 mg capsule 300 mg PO BID 6 Days Qty: 12 0RF doxycycline monohydrate 100 mg capsule 100 mg PO BID 6 Days Qty: 12 0RF Problem Reconciliation Problems Reviewed?: Yes Patient Discharge Instructions Patient Instructions: DI for Pneumonia -- Adult Print Language: Welsh Providers Primary Care Provider: Damian Saini Admit Provider: Isaac Gautam Attending Provider: Isaac Gautam
--- NOTE | 2024-06-18 10:35 | SW/DCPLANNER ---
Spoke with patient on the phone. Patient stated that he is doing much better. Patient stated that his daughter is going to call and schedule the up coming appointment with his primary care provider. Patient stated that they were able to meat pickler his new medicine from [facility]. Patient stated that he has no concerns or questions at this time. Muriel Cowan
[2024-06-18 11:11] LABS: MRSA DNA PCR Positive (Negative)
[2024-06-25 10:34] LABS: Legionella pneumophila Urinary Negative (Negative)
== END 2024-06-17 14:18 | disposition home or self-care (01) ==
LOC: ER 19:22 → 2ND 21:31
PROVIDERS: Nurse Practitioner; Nurse Practitioner Acute Care; Admitting Provider Student in an Organized Health Care Education/Training Program; Emergency Provider Student in an Organized Health Care Education/Training Program; PCP Family Medicine; Visit Provider Student in an Organized Health Care Education/Training Program
DX: J96.01 Acute respiratory failure with hypoxia (principal); J15.9 Unspecified bacterial pneumonia; A41.9 Sepsis, unspecified organism; J69.0 Pneumonitis due to inhalation of food and vomit; J84.10 Pulmonary fibrosis, unspecified; C09.9 Malignant neoplasm of tonsil, unspecified; Z93.1 Gastrostomy status; Z79.899 Other long term (current) drug therapy
CPT/HCPCS: 36415; 71046; 71275; 80048; 80053; 81001; 82803; 83605; 83880; 84145; 84484; 85007; 85025; 85610; 85730; 87040; 87070; 87077; 87186; 87205; 87278; 87449; 87633; 87636; 87641; 93005; 99285; G0378; J0131; J0692; J3370; J7120; J7620; Q9967

== ENCOUNTER 2024-06-25 15:42 | Outpatient (CLI) | payer BC, SELFPAY ==
--- NOTE | 2024-06-25 15:47 | XR_ITS ---
FINAL REPORT CLINICAL HISTORY: SACRAL PAIN HISTORY OF CANCER COMPARISON: none FINDINGS: SACRUM COCCYX 3 views demonstrate cortical irregularity of the distal sacrum at the anterior aspect suspicious for fracture of indeterminate age. There is no significant disc displacement seen. Moderate degenerative changes are noted of the SI joints bilaterally. No soft tissue abnormality is seen. IMPRESSION: Nondisplaced age indeterminate distal sacral fracture. Reviewed, Interpreted and Dictated by Nba Payne MD Transcribed by Marilyn Mims Authenticated and [facility]
== END 2024-06-25 23:59 | disposition home or self-care (01) ==
LOC: RAD 15:42
PROVIDERS: PCP Family Medicine; Visit Provider Family Medicine
DX: M53.3 Sacrococcygeal disorders, not elsewhere classified (principal)
CPT/HCPCS: 72220

== ENCOUNTER 2024-07-10 13:18 | Outpatient (CLI) | payer BC, SELFPAY ==
--- NOTE | 2024-07-10 13:23 | XR_ITS ---
FINAL REPORT CLINICAL HISTORY: HYPOXIA..soaa..f/u pneumonia COMPARISON: 10/26/2023 FINDINGS: CHEST 2 VIEWS PA AND LATERAL The heart is normal in size. The mediastinum is unremarkable. There is patchy airspace opacity in the right perihilar region which is new since previous. There is new linear atelectasis in the right perihilar region. There is a small amount of fluid in the minor fissure. Scarring is seen at the left base. There is no pneumothorax. IMPRESSION: New right perihilar airspace infiltrate with atelectasis. Reviewed, Interpreted and Dictated by Willie Vila MD Transcribed by Taryn Javier Authenticated and [facility]
[2024-07-10 14:45] LABS: Basophils % 0.2 % (0.1-2.0); Eosinophils # 0.1 K/mm3 (0.0-0.4); Eosinophils % 0.9 % (0.1-12.0); Hematocrit 35.4 % (42.0-52.0); Hemoglobin 11.8 g/dL (14.1-18.0); Lymphocytes # 0.9 K/mm3 (0.7-4.5); Lymphocytes % 6.2 % (10-50); Mean Corpuscular HGB Conc 33.3 g/dL (31.8-35.4); Mean Corpuscular Hemoglobin 27.6 pg (27.0-31.2); Mean Corpuscular Volume 82.9 fl (80-94); Mean Platelet Volume 10.4 fl (7.4-10.4); Monocytes # 0.9 K/mm3 (0.1-1.0); Monocytes % 6.1 % (1.7-9.3); Neutrophils # 12.9 K/mm3 (1.8-7.8); Neutrophils % 86.1 % (37.0-80.0); Platelet Count 223 K/mm3 (142-424); Red Blood Count 4.27 M/mm3 (4.60-6.20); Red Cell Distribution Width 14.3 % (11.5-17.5)
[2024-07-10 14:53] LABS: MANUAL DIFFERENTIAL MANUAL DIFFERENTIAL (MANUAL DIFF)
[2024-07-10 15:47] LABS: Lymphocytes % 12 % (10-50); Monocytes % 3 % (2-9); Neutrophils % 85 % (42-76); RBC Morphology Normal; Total Cells Counted 100
[2024-07-10 15:48] LABS: Platelet Estimate Normal
[2024-07-10 16:28] LABS: Anion Gap 9.9 mEq/L (5-15); Blood Urea Nitrogen 16 mg/dl (9-20); Calcium 9.3 mg/dl (8.4-10.2); Carbon Dioxide 33 mmol/L (22.0-30.0); Chloride 99 mmol/L (98-107); Estimated Glomerular Filt Rate 131 ml/min (>60); GFR (African American) 159 ML/MIN (>60); Glucose 100 mg/dl (74-100); Potassium 4.9 mmoL/L (3.5-5.1); Sodium 137 mmol/L (136-145)
== END 2024-07-10 23:59 | disposition home or self-care (01) ==
LOC: LAB 13:19
PROVIDERS: PCP Family Medicine; Visit Provider Family Medicine
DX: R05.2 Subacute cough (principal); R09.02 Hypoxemia; R61 Generalized hyperhidrosis; Z87.01 Personal history of pneumonia (recurrent); J69.0 Pneumonitis due to inhalation of food and vomit
CPT/HCPCS: 36415; 71046; 80048; 85007; 85025; 85027

== ENCOUNTER 2024-07-20 17:39 | Emergency (ER) | payer BC, SELFPAY ==
[2024-07-20] VITALS (11 sets, daily range): BP systolic 80–124; BP diastolic 41–66; PULSE 74–100; RESP 20–29; TEMP 38.8; O2SAT 88–96; BMI 20.8
--- NOTE | 2024-07-20 17:57 | CT_ITS ---
PROCEDURE INFORMATION: Exam: CTA Chest With Contrast Exam date and time: 07/20/2024 6:45 PM Age: 74 years old Clinical indication: Shortness of breath; Additional info: Resp failure, SOA, h/o tonsilar CA, recurrent pna TECHNIQUE: Imaging protocol: Computed tomographic angiography of the chest with contrast. Exam focused on the arteries. 3D rendering (Not supervised by radiologist): MIP and/or 3D reconstructed images were created by the technologist. Radiation optimization: All CT scans at this facility use at least one of these dose optimization techniques: automated exposure control; mA and/or kV adjustment per patient size (includes targeted exams where dose is matched to clinical indication); or iterative reconstruction. Contrast material: ISOUVE 370; Contrast volume: 80 ml; Contrast route: INTRAVENOUS (IV); COMPARISON: CT ANGIO CHEST PE PROTOCOL 16/06/2024 20:20 FINDINGS: Tubes, catheters and devices: Gastrostomy tube bulb is in the stomach. Pulmonary arteries: No pulmonary emboli. Enlarged pulmonary arteries likely represent chronic pulmonary arterial hypertension. Aorta: The aorta demonstrates mild atherosclerotic disease. Lungs: Patchy ground-glass airspace disease is present in the mid to lower lungs. This appears worse compared to prior study. Right mainstem bronchus is occluded with the proximal right middle and lower lobe bronchi occluded as well. Pleural spaces: Small right pleural effusion. Heart: Unremarkable. No cardiomegaly. No pericardial effusion. Lymph nodes: The subcarinal lymph node is enlarged measuring 2 cm in short axis. Enlarged right hilar lymph node measuring 11 mm in short axis image 62 series 5 and 14 mm short axis right hilar lymph node image 70 series 5. Enlarged right pericardiophrenic lymph node measuring 11 mm in short axis image 102 series 5. Enlarged right internal mammary lymph node measures 8 mm in short axis image 40 series 5. Liver: There are small enhancing foci in the liver of indeterminate significance, example 6 mm lesion in the posterior right hepatic lobe image 121 and periphery of the right hepatic lobe measuring 4 mm image 98 series 5. Gallbladder and biliary ducts: Nonspecific gallbladder wall thickening with probable pericholecystic edema. Intraperitoneal space: There are cystic appearing masses in the right lower hemithorax on image 74 series 5 measuring 5.7 x 1.9 cm and 3.3 x 3.5 cm. Bones/joints: Old left rib fractures. Soft tissues: Unremarkable. IMPRESSION: 1. No pulmonary emboli. 2. Patchy ground-glass airspace disease is present in the mid to lower lungs. This appears worse compared to prior study. This is most likely infection, though aspiration could be superimposed. Recommend imaging follow-up to resolution to exclude underlying metastatic disease. 3. Right mainstem bronchus is occluded with the proximal right middle and lower lobe bronchi occluded as well. This is most likely due to mucous plugging, less likely malignancy. 4. There are cystic appearing masses in the right lower hemithorax on image 74 series 5 measuring 5.7 x 1.9 cm and 3.3 x 3.5 cm. Differential considerations include pulmonary abscesses and malignancy. 5. Thoracic lymphadenopathy is worrisome for metastatic disease. 6. Nonspecific gallbladder wall thickening with probable pericholecystic edema. If there is clinical suspicion for acute cholecystitis, consider ultrasound for further evaluation. 7. Small right pleural effusion. 8. There are small enhancing foci in the liver of indeterminate significance, example 6 mm lesion in the posterior right hepatic lobe image 121 and periphery of the right hepatic lobe measuring 4 mm image 98 series 5. Please correlate with hepatic enzymes and consider further evaluation with contrast-enhanced MRI to exclude metastatic disease. 9. THIS REPORT CONTAINS FINDINGS THAT MAY BE CRITICAL TO PATIENT CARE. The findings were verbally communicated via telephone conference with Kala Reno at 8:09 PM EDT on 07/20/2024. The findings were acknowledged and understood.
--- NOTE | 2024-07-20 17:57 | ECG_ITS ---
APPROVED REPORT Exam: Resting ECG HR:99 bpm ECG Measurements Heart Rate 99 AXES ND 135 P 55 QRSd 80 QRS 8 QT 326 T 58 QTc 382 Conclusion SINUS RHYTHM POSSIBLE LEFT ATRIAL ENLARGEMENT [-0.1mV P-WAVE IN V1/V2] POSSIBLE RIGHT VENTRICULAR CONDUCTION DELAY [RSR (QR) IN V1/V2] Electronically signed by : SKYLER MALLORY, 07/20/2024 23:20:07
[2024-07-20 17:58] LABS: Coronavirus 19, PCR Not Detected (NotDetected); Influenza A, PCR Not Detected (NotDetected); Influenza B, PCR Not Detected (NotDetected)
--- NOTE | 2024-07-20 18:00 | ED_ITS ---
Discharge Plan Disposition Patient Disposition: Xfer Short-Term Hosp Chief Complaint: Upper Respiratory Infection Prescriptions Prescriptions: No Action cefdinir 300 mg capsule 300 mg PO BID 6 Days Qty: 12 0RF doxycycline monohydrate 100 mg capsule 100 mg PO BID 6 Days Qty: 12 0RF Referrals Follow up/Referrals: Damian Saini MD [Primary Care Provider] - See instructions Clinical Impressions Clinical Impression: Sepsis due to pneumonia, Acute hypoxic respiratory failure, Septic shock, Empyema of lung Print Language Print Language: Kittitian Discharge ED Provider: Kala Reno General Adult HPI General Chief complaint: Upper Respiratory Infection Stated complaint: fever, cough, shallow breathing Time Seen by Provider: 07/20/24 17:48 Mode of Arrival: Wheelchair Source of Information: Patient Description of Symptoms (Recalled from ER Triage Doc. by RN): Pt presents for evaluation of chest congestion, productive cough, fever of 103. pt last took motrin at 1630. Recent diagnosis of pneumonia last week. History of Present Illness HPI narrative: This patient is a 74-year-old male with a history of tonsillar cancer status post resection (2010), pulmonary fibrosis, feeding tube presenting to the emergency department for evaluation with concern for fever, cough, shortness of breath, general weakness. According to the patient's daughter, the patient has had issues with aspiration pneumonia intermittently since June. He was admitted in June to the hospital with concern for sepsis secondary to pneumonia and respiratory failure. His daughter notes that about a week ago, he also started getting sick again and was diagnosed with pneumonia on an outpatient basis. She notes that he was started on Levaquin, which she completed. After this, he did get a little bit better, but then his symptoms rapidly got worse again after stopping the antibiotic. Aside from fever, congestion, general weakness, shortness of breath, patient denies any other concerns or complaints such as abdominal pain, vomiting, changes in bowel movements, or other issues. Related Data Previous Rx's ?Medication ?Instructions ?Recorded cefdinir 300 mg capsule 300 mg PO BID 6 days #12 caps 06/17/24 doxycycline monohydrate 100 mg 100 mg PO BID 6 days #12 caps 06/17/24 capsule Allergies Allergy/AdvReac Type Severity Reaction Status Date / Time No Known Allergies Allergy Verified 06/16/24 19:19 [facility] Disclaimer: The information contained in this section may have been updated after the patient was seen, as this information can be updated by other users. Medical History Sepsis Feeding by G-tube Tonsil cancer Surgical History History of tonsillectomy History of appendectomy Social History Smoking Status: Never smoker alcohol intake: never current occupational status: unemployed Travel in the last 8 weeks: None Have you lived/traveled outside [place] in past 30 days?: No Contact w/someone who lives/traveled outside US past 30 days?: No Exposure to someone with infectious disease in past 14 days?: No Do you have a fever (greater than 100.4 F or 38 C)?: Yes Have you tested positive for COVID-19: No Exposed to someone with COVID-19 in past 14 days?: No Do you have a sore throat?: No Do you have a cough?: Yes Do you have any weakness?: No Do you have any diarrhea?: No Are you experiencing any unusual bleeding?: No Do you have any muscle aches/pain?: No Do you have any abdominal pain?: No Are you experiencing loss of taste or smell?: No Other Medical History Have you received the Flu Vaccine for this season: No Have you received the Pneumonia Vaccine: No ROS Obtained: Yes All systems reviewed & no additional complaints except as documented Physical Exam General General appearance: alert and cachectic Head Head exam: atraumatic and normocephalic Eye Eye exam: Present normal appearance, PERRL and EOMI ENT ENT exam: Present normal oropharynx, mucous membranes dry and normal external ear exam Neck Neck exam: Present normal inspection, full ROM and trachea midline; Absent tenderness Chest Chest inspection: Present normal inspection and symmetric chest wall rise; Absent tenderness Respiratory Respiratory exam: Present accessory muscle use and other (Left greater than right rhonchi); Absent normal lung sounds bilaterally, respiratory distress, wheezes or stridor Cardiovascular Cardiovascular exam: Present normal rhythm and tachycardia Abdominal Exam Abdominal exam: Present soft; Absent distention, tenderness or guarding Extremities Exam Extremities exam: Present normal inspection, full ROM and normal capillary refill; Absent tenderness or edema Back Exam Back exam: Present normal inspection and full ROM; Absent tenderness Neurological Exam Neurological exam: Present alert, oriented X3, CN II-XII intact and normal gait; Absent motor sensory deficit Psychiatric Psychiatric exam: Present normal affect and normal mood Skin Skin exam: Present warm and dry Medical Decision Making Medical Records Medical records reviewed: Yes I reviewed the patient's medical records. Screening: Per USPSTF and CDC recommendations, given the prevalence of disease in our region, it is our hospital?s policy to screen for HIV and viral Hepatitis for all patients aged 18 and over and those with ongoing risk factors. Hari Inquiry Pt receiving controlled substance: No Vital Signs: 07/20/24 17:43 07/20/24 18:04 07/20/24 18:30 Temperature 102 F H Temperature Source Oral Pulse Rate 95 H 85 Pulse Rate [Right] 100 H Respiratory Rate 22 29 H 24 Blood Pressure 104/59 L 84/51 L Blood Pressure [Right Arm] 80/41 L Blood Pressure Mean [Right Arm] 54 Blood Pressure Source [Right Arm] Automatic Cuff Blood Pressure Position [Right Arm] Sitting 02 Sat by Pulse Oximetry 88 L 95 94 L Oxygen Delivery Method Nasal Cannula Oxygen Flow Rate (LPM) 2 07/20/24 18:32 07/20/24 18:33 07/20/24 18:37 Temperature Temperature Source Pulse Rate 85 80 85 Pulse Rate [Right] Respiratory Rate 26 H 27 H 27 H Blood Pressure 89/48 L 88/48 L 88/50 L Blood Pressure [Right Arm] Blood Pressure Mean [Right Arm] Blood Pressure Source [Right Arm] Blood Pressure Position [Right Arm] 02 Sat by Pulse Oximetry 95 96 95 Oxygen Delivery Method Oxygen Flow Rate (LPM) 07/20/24 19:00 07/20/24 19:30 Temperature Temperature Source Pulse Rate 86 84 Pulse Rate [Right] Respiratory Rate 20 23 Blood Pressure 99/52 L 95/51 L Blood Pressure [Right Arm] Blood Pressure Mean [Right Arm] Blood Pressure Source [Right Arm] Blood Pressure Position [Right Arm] 02 Sat by Pulse Oximetry 96 95 Oxygen Delivery Method Oxygen Flow Rate (LPM) Lab Data Lab results reviewed: Yes I reviewed the patient's lab results. Lab Results 07/20/24 17:52: SARS-CoV-2 (PCR) Not detected, Influenza A Untype (PCR) Not detected, Influenza Type B (PCR) Not detected 07/20/24 17:53: WBC 21.5 H*, RBC 3.54 L, Hgb 9.8 L, Hct 27.7 L, MCV 78.2 L, MCH 27.7, MCHC 35.4, RDW 14.3, Plt Count 378, MPV 9.2, Neut % (Auto) 89.2 H, Lymph % (Auto) 3.2 L, [place] % (Auto) 6.7, Eos % (Auto) 0.1, Baso % (Auto) 0.2, Neut # (Auto) 19.1 H, Lymph # (Auto) 0.7, [place] # (Auto) 1.4 H, Eos # (Auto) 0.0, Baso # (Auto) 0.1, Total Counted 100, Neutrophils % (Manual) 91 H, Lymphocytes % (Manual) 2 L, Monocytes % (Manual) 7, Platelet Estimate Normal, Microcytosis 1+, Sodium 132 L, Potassium 3.8, Chloride 100, Carbon Dioxide 30, Anion Gap 5.8, BUN 10, Creatinine 0.60 L, Estimated Creat Clear 53, Estimated GFR 131, Est GFR ( Amer) 159, Glucose 106 H, Calcium 8.3 L, Magnesium 1.6, Total Bilirubin 0.3, AST 52, ALT 52, Alkaline Phosphatase 77, Troponin I < 0.01, C-Reactive Protein 61.6 H, NT-Pro-B Natriuret Pep 631 H, Total Protein 7.2, Albumin 2.8 L, Globulin 4.4 H, Albumin/Globulin Ratio 0.6 L, Procalcitonin 0.076, TSH 3.23, Thyroxine (T4) 5.6, HCV Ab MIKEL w/Rflx PCR Qn Negative, HIV Ag/Ab Combo Qual Negative 07/20/24 18:00: VBG pH 7.49 H, VBG pCO2 33.3 L, VBG pO2 98.2 H, VBG HCO3 24.9, VBG Total CO2 25.9, VBG O2 Saturation 97.5 H, VBG Base Excess 1.5, VBG Lactic Acid 1.5 07/20/24 17:53 07/20/24 17:53 Orders (Tests/Meds): ED MEDICATIONS Generic Name Dose Route Start Last Admin Trade Name Freq PRN Reason Stop Dose Admin Vancomycin/PEG/NADA/Lysine/Water 1.5 gm in 300 mls @ 150 mls/hr 07/20/24 18:45 07/20/24 19:19 Vancomycin 1.5gm/300ml (Peg) Premix IV 07/20/24 20:44 150 mls/hr ONCE ONE Administration Lactated Ringer's 1,000 mls @ 125 mls/hr 07/20/24 20:15 Lactated Ringer's 1000 Ml Bag IV 08/19/24 20:14 .Q8H JORDIN Miscellaneous 1 each 07/20/24 18:45 07/20/24 18:47 Vancomycin Consult Request NOTAPPLIC 08/19/24 18:44 1 each CONSULT PHARMACY JORDIN Administration Sodium Chloride 3 ml 07/20/24 17:57 Sodium Chloride 3% 15ml Neb IH 08/19/24 17:56 ONCE PRN INDUCE SPUTUM COLLECTION Sodium Chloride 10 ml 07/20/24 18:47 07/20/24 18:48 Sodium Chloride 0.9% 10ml Syr (Rad Only) IV 08/19/24 18:46 10 ml NEEDED PRN Administration Maintain IV Site Discontinued Medications Generic Name Dose Route Start Last Admin Trade Name Freq PRN Reason Stop Dose Admin Acetaminophen 1,000 mg 07/20/24 17:59 07/20/24 18:03 Acetaminophen 1,000mg/100ml Vial IV 07/20/24 18:00 1,000 mg ONCE ONE Administration Lactated Ringer's 1,760 mls @ 880 mls/hr 07/20/24 17:57 07/20/24 18:03 Lactated Ringer's 1000 Ml Bag 30 ml/kg infuse over 2 hr (1760 ml) 07/20/24 19:56 880 mls/hr IV Administration .Q2H ONE Piperacillin Sod/Tazobactam 50 mls @ 100 mls/hr 07/20/24 18:33 07/20/24 18:58 Sod 3.375 gm/ Sodium Chloride IV 07/20/24 19:02 100 mls/hr ONCE ONE Administration Iopamidol 70 ml 07/20/24 18:47 07/20/24 18:48 Iopamidol-370 (76%);100ml Bottle IV 07/20/24 18:48 70 ml ONCE ONE Administration Sodium Chloride 40 ml 07/20/24 18:47 07/20/24 18:47 0.9 % Sodium Chloride 50 Ml Vial IV 07/20/24 18:48 40 ml ONCE ONE Administration ORDERS Category Date Time Status CT angio chest PE protocol Stat Cat Scan 07/20/24 17:57 Taken BNP [NT Pro Brain Natriuretic Pep.] Stat Lab 07/20/24 17:53 Completed CRP [C-Reactive Protein] Stat Lab 07/20/24 17:53 Completed Complete Blood Count Auto Diff Stat Lab 07/20/24 17:53 Completed Comprehensive Metabolic Panel Stat Lab 07/20/24 17:53 Completed HIV Combo Stat Lab 07/20/24 17:53 Completed Hepatitis C Ab Qual. W/ RFX Stat Lab 07/20/24 17:53 Completed MAG [Magnesium] Stat Lab 07/20/24 17:53 Completed Procalcitonin Stat Lab 07/20/24 17:53 Completed Rapid PCR Covid and Flu A/B Stat Lab 07/20/24 17:52 Completed T4 (Thyroxine) Stat Lab 07/20/24 17:53 Completed TSH [Thyroid Stimulating Hormone] Stat Lab 07/20/24 17:53 Completed Trop I [Troponin I] Stat Lab 07/20/24 17:53 Completed Troponin I Q3H Lab 07/20/24 21:00 Ordered Troponin I Q3H Lab 07/21/24 00:00 Ordered UA [Urinalysis and Microscopic] Stat Lab 07/20/24 17:57 Ordered Blood Culture Stat Micro 07/20/24 18:38 Received Sputum Culture & Gram Stain Stat Micro 07/20/24 17:57 Ordered Urine Culture Stat Micro 07/20/24 17:57 Ordered VBG [Venous Blood Gas] Stat RT 07/20/24 18:00 Completed ECG Data Tracing #1: I reviewed this ECG and interpreted as documented below: Normal sinus rhythm with a ventricular rate of [address] changes concerning for STEMI. Normal intervals ECG initial impression date: 07/20/24 ECG initial impression time: 17:58 Medical Decision Narrative: In summary, this patient is a 74-year-old male presenting to the Emergency Department for evaluation of fever, cough, congestion, shortness of breath, general weakness. Differential diagnoses considered include but are not limited to sepsis secondary to pneumonia, respiratory failure, aspiration pneumonia, PE. Ruling out the most morbid conditions drove assessment. It should be noted patient's history includes pulmonary fibrosis, prior history of tonsillar cancer s/p resection with residual issues with aspiration which likely are not at goal therapy. This complicates all aspects of care by increasing patient's risk for morbidity. I reviewed patient's past medical records and noted admission 06/16/2024- 06/17/2024 for similar issue. Patient was discharged on cefdinir and doxycycline at that time. Last week, he was treated with Levaquin. I noted prior sputum culture showing yeast, MRSA, Rhizobium rhizobacter. On exam, the patient is lying in bed. He is cachectic, chronically ill- appearing. He arrives hypotensive with systolics in the 80s and MAPs in the low 60s. He is febrile, tachycardic, and tachypneic with left greater than right rhonchi, meeting sepsis criteria. He also is hypoxic requiring 2 L nasal cannula. Workup included lab evaluation to evaluate for infectious, metabolic, cardiac issues including blood cultures. Given his complicated history of recurrent pneumonia, I elected to obtain CT scan of the chest PE protocol to further assess. No known history of cardiac issues, so he was given sepsis bolus of IV fluids. He is also given IV acetaminophen for fever. EKG obtained is reassuring. I independently interpreted CT scan prior to the radiologist read and noted loculated fluid collection in the right lower lung as well as bilateral pneumonia. Please see their read for final interpretation. I had an interactive discussion with radiology who advised likely abscesses versus metastatic disease. Labs were obtained that demonstrated leukocytosis, again favoring infectious etiology of the patient's issues. He has a normal lactic acid. He has a respiratory alkalosis noted. Chemistry demonstrates mild hyponatremia. He has elevated CRP at 61.6. BNP is very mildly elevated at 631. On reassessment, patient had good improvement after administration of sepsis bolus of IV fluids. I started him on empiric broad-spectrum antibiotics with IV vancomycin and Zosyn. After sepsis bolus of IV fluids, he has improved perfusion and now has maps consistently greater than 65 with systolics in the 90s. Heart rate improved from the 1 teens to 80s. I did order maintenance fluids to continue to infuse. He was given IV acetaminophen for fever with good defervescence. I had an interactive discussion with our web content coordinator, Dr. Billings, recommended transfer to higher level of care with CT surgery. Given this and the fact the patient follows at for pulmonology as well as his prior cancer care, I called and had an interactive discussion with Dr. Melgar in the transfer center who accepted the patient for transfer there for further evaluation and management. He is stable at this time for transfer. Given ongoing fluids, antibiotics, and oxygen support with 2 L nasal cannula, EMS transport was arranged. Patient was transferred in stable condition. Critical Care Critical Care Time Critical Care Time: Yes Attestation: On 07/20/24, the high probability of a clinically significant, sudden or life threatening deterioration of the following system(s) required my full and direct attention, intervention and personal management. The time I documented below is in addition to time spent performing reported procedures but includes the following listed in this critical care notation. Total Time Total Critical Care Time: 45
[2024-07-20] MEDS: LACTATED RINGERS 880 ML IV (18:03)
[2024-07-20] MEDS: ACETAMINOPHEN 1,000MG/100ML VIAL 1000 MG IV (18:03)
[2024-07-20 18:06] LABS: Lactate Venous 1.5 mmol/L (0.4-2.0); VBG Base Excess 1.5 mmol/L (-2.4-2.3); VBG HCO3 24.9 mmol/L (23-30); VBG Oxygen Saturation 97.5 % (50-70); VBG PCO2 33.3 mmol/L (35-51); VBG PH 7.49 mmol/L (7.31-7.41); VBG PO2 98.2 mmol/L (28-40); VBG Total CO2 25.9 mmol/L (23-27)
[2024-07-20 18:06] LABS: Basophils # 0.1 K/mm3 (0-0.2); Basophils % 0.2 % (0.1-2.0); Eosinophils % 0.1 % (0.1-12.0); Hematocrit 27.7 % (42.0-52.0); Hemoglobin 9.8 g/dL (14.1-18.0); Lymphocytes # 0.7 K/mm3 (0.7-4.5); Lymphocytes % 3.2 % (10-50); Mean Corpuscular HGB Conc 35.4 g/dL (31.8-35.4); Mean Corpuscular Hemoglobin 27.7 pg (27.0-31.2); Mean Corpuscular Volume 78.2 fl (80-94); Mean Platelet Volume 9.2 fl (7.4-10.4); Monocytes # 1.4 K/mm3 (0.1-1.0); Monocytes % 6.7 % (1.7-9.3); Neutrophils # 19.1 K/mm3 (1.8-7.8); Neutrophils % 89.2 % (37.0-80.0); Platelet Count 378 K/mm3 (142-424); Red Blood Count 3.54 M/mm3 (4.60-6.20); Red Cell Distribution Width 14.3 % (11.5-17.5); White Blood Count 21.5 K/mm3 (4.8-10.8)
[2024-07-20 18:15] LABS: Albumin Level 2.8 g/dl (3.5-5.0); Chloride 100 mmol/L (98-107); Potassium 3.8 mmoL/L (3.5-5.1); Sodium 132 mmol/L (136-145)
[2024-07-20 18:16] LABS: MANUAL DIFFERENTIAL MANUAL DIFFERENTIAL (MANUAL DIFF)
[2024-07-20 18:18] LABS: Alanine Aminotransferase 52 U/L (12-78); Albumin/Globulin Ratio 0.6 (1.1-1.8); Alkaline Phosphatase 77 U/L (38-126); Anion Gap 5.8 mEq/L (5-15); Aspartate Amino Transferase 52 U/L (17-59); Bilirubin,Total 0.3 mg/dl (0.2-1.3); Blood Urea Nitrogen 10 mg/dl (9-20); Calcium 8.3 mg/dl (8.4-10.2); Carbon Dioxide 30 mmol/L (22.0-30.0); Creatinine Clearance Estimated 53 mL/min (50-200); Estimated Glomerular Filt Rate 131 ml/min (>60); GFR (African American) 159 ML/MIN (>60); Globulin 4.4 g/dL (1.3-3.2); Glucose 106 mg/dl (74-100); Magnesium 1.6 mg/dl (1.6-2.3); Total Protein,Serum 7.2 g/dl (6.3-8.2)
[2024-07-20 18:24] LABS: C-Reactive Protein 61.6 mg/L (0-4)
[2024-07-20 18:30] LABS: NT Pro Brain Natriuretic Pep. 631 pg/mL (0-450)
[2024-07-20 18:38] LABS: T4 (Thyroxine) 5.6 ug/dl (5.53-11.0)
[2024-07-20] MEDS: VANCOMYCIN CONSULT REQUEST 1 EACH NOTAPPLIC (18:47)
[2024-07-20] MEDS: 0.9 % SODIUM CHLORIDE 50 ML VIAL 40 ML IV (18:47)
[2024-07-20] MEDS: SODIUM CHLORIDE 0.9% 10ML SYR (RAD ONLY) 10 ML IV (18:48)
[2024-07-20] MEDS: IOPAMIDOL-370 (76%);100ML BOTTLE 70 ML IV (18:48)
[2024-07-20 18:51] LABS: Thyroid Stimulating Hormone 3.23 uIU/mL (0.465-4.68)
[2024-07-20 18:53] LABS: Troponin I < 0.01 ng/ml (0.00-0.034)
[2024-07-20 18:56] LABS: Lymphocytes % 2 % (10-50); Monocytes % 7 % (2-9); Neutrophils % 91 % (42-76); Total Cells Counted 100
[2024-07-20 18:57] LABS: Microcytosis 1+; Platelet Estimate Normal
[2024-07-20] MEDS: PIPERACILLIN/TAZO 3.375 GM in 0.9 % SODIUM CHLORIDE 50 ML IV (18:58)
[2024-07-20 19:09] LABS: HIV Combo NEGATIVE (Negative)
[2024-07-20 19:17] LABS: Hepatitis C Ab Qual. W/ RFX NEGATIVE (Negative)
[2024-07-20] MEDS: VANCOMYCIN/WATER FOR INJ (PEG) 1.5 GM/300 ML PIGGYBACK IV (19:19)
--- NOTE | 2024-07-20 19:29 | PC.NURSE ---
Called [facility] for a transfer, Said they would call back once a doctor is ready
[2024-07-20 19:49] LABS: Procalcitonin 0.076 ng/mL (0.0-2.0)
--- NOTE | 2024-07-20 20:00 | PC.NURSE ---
Provider on the phone with at this time for possible transfer.
--- NOTE | 2024-07-20 20:48 | PC.NURSE ---
[facility] currently running; can't start LR at this time
== END 2024-07-20 20:59 | disposition short-term general hospital (02) ==
PROVIDERS: Emergency Provider Emergency Medicine; PCP Family Medicine
DX: A41.9 Sepsis, unspecified organism (principal); J18.9 Pneumonia, unspecified organism; J96.01 Acute respiratory failure with hypoxia
CPT/HCPCS: 71275; 80053; 82803; 83735; 83880; 84145; 84436; 84443; 84484; 85007; 85025; 85027; 86140; 86803; 87040; 87389; 87636; 93005; 94640; 96365; 96366; 96368; 96375; 99285; J0131; J2543; J3372; J7120; Q9967

== ENCOUNTER 2024-08-06 08:53 | Outpatient (CLI) | payer BC, SELFPAY ==
[2024-08-06 09:04] VITALS: BMI 18.6
[2024-08-06 09:26] LABS: Basophils % 0.1 % (0.1-2.0); Eosinophils % 0.2 % (0.1-12.0); Hematocrit 29.3 % (42.0-52.0); Hemoglobin 9.8 g/dL (14.1-18.0); Lymphocytes # 0.6 K/mm3 (0.7-4.5); Mean Corpuscular HGB Conc 33.4 g/dL (31.8-35.4); Mean Corpuscular Hemoglobin 26.9 pg (27.0-31.2); Mean Corpuscular Volume 80.5 fl (80-94); Mean Platelet Volume 10.2 fl (7.4-10.4); Monocytes # 0.1 K/mm3 (0.1-1.0); Monocytes % 1.7 % (1.7-9.3); Neutrophils # 7.5 K/mm3 (1.8-7.8); Neutrophils % 90.4 % (37.0-80.0); Platelet Count 316 K/mm3 (142-424); Red Blood Count 3.64 M/mm3 (4.60-6.20); Red Cell Distribution Width 19.8 % (11.5-17.5); White Blood Count 8.3 K/mm3 (4.8-10.8)
[2024-08-06 09:29] LABS: Albumin Level 3.5 g/dl (3.5-5.0); Chloride 103 mmol/L (98-107); Potassium 4.1 mmoL/L (3.5-5.1); Sodium 136 mmol/L (136-145)
[2024-08-06 09:32] LABS: Alanine Aminotransferase 51 U/L (12-78); Albumin/Globulin Ratio 0.8 (1.1-1.8); Alkaline Phosphatase 76 U/L (38-126); Anion Gap 14.1 mEq/L (5-15); Aspartate Amino Transferase 40 U/L (17-59); Bilirubin,Total 0.4 mg/dl (0.2-1.3); Blood Urea Nitrogen 18 mg/dl (9-20); Carbon Dioxide 23 mmol/L (22.0-30.0); Creatinine Clearance Estimated 46 mL/min (50-200); Estimated Glomerular Filt Rate 82 ml/min (>60); GFR (African American) 100 ML/MIN (>60); Globulin 4.5 g/dL (1.3-3.2)
[2024-08-06 09:33] LABS: Calcium 9.3 mg/dl (8.4-10.2); Glucose 112 mg/dl (74-100); MANUAL DIFFERENTIAL MANUAL DIFFERENTIAL (MANUAL DIFF)
[2024-08-06 09:38] LABS: C-Reactive Protein 0.4 mg/L (0-4)
[2024-08-06 10:42] LABS: Lymphocytes % 6 % (10-50); Monocytes % 1 % (2-9); Neutrophils % 93 % (42-76); Total Cells Counted 100
[2024-08-06 10:43] LABS: Hypochromasia 1+
[2024-08-06 10:44] LABS: Platelet Estimate Normal
== END 2024-08-06 11:45 | disposition home or self-care (01) ==
PROVIDERS: PCP Family Medicine; Visit Provider Family Medicine
DX: Z45.2 Encounter for adjustment and management of vascular access device (principal)
CPT/HCPCS: 36592; 80053; 85007; 85025; 86140; 96523

== ENCOUNTER 2024-12-06 08:50 | Outpatient (CLI) | payer BC, SELFPAY ==
--- OUTSIDE RECORDS SUMMARY | 2024-12-03 13:30 | XMS_ITS | Encounter Summary ---
Author Organization Healthcare Address [address] [place] [address] Care Team Providers Care Hospice Spiritual Care Coordinator Name Role Phone Damian Saini MD Primary Care Provider [phone] Encounter Details Date Type Department Care Team (Latest Contact Info) Description 12/03/2024 1:30 PM EDT Ancillary Procedure Professional [facility] [address], [address] [place] [address] Bronchiectasis without complication (CMS/HCC) Social [...] any time in the past 12 m [facility], were you homeless or living in a nursing home (including now)? No 08/02/2024 Utilities Answer Date [...] Info) Description 12/13/2024 12:40 PM EDT Appointment [facility] [address] [place] [address] 12/13/2024 2:45 PM EDT Clinical Support [facility] [address] [place] [address] 12/13/2024 3:00 PM EDT Office Visit [facility] [address] [place] [address] Nia Johnson, DORMITORY MAID [address] [facility] [address] [place] [address] 12/21/2024 2:30 PM EDT Office Visit Pav [facility] Head, Neck & Respiratory [address] [facility], [address]nd [place] [address] Rishi Deluca, PA [address] [place] [address] 03/11/2025 11:40 AM EST Office Visit [facility] [address], [address] [place] [address] Nikko Morfin MD [address] [place] [address] documented as of this encounter Procedures Procedure Name Priority Date/Time Associated Diagnosis Comments HC DIFFUSING CAPACITY - CARBON MONOXIDE DIFFUSING CAPACITY Routine 12/03/2024 3:42 PM EDT Bronchiectasis without complication (CMS/HCC) documented in this encounter Results * (ABNORMAL) Pulmonary function testing (12/03/2024 3:42 PM EDT) XPX3BIJ 2.04 1.99 - 3.64 L VYAIRE PFT FVC PRED 2.81 VYAIRE PFT FVC LLN 1.99 VYAIRE PFT FVCPREZSCORE -1.54 VYAIRE PFT FVCPRE%PRED 73 % % VYAIRE PFT FVC PREDAUTCo[facility] Center (2011) VYAIRE PFT FVC Z-SCORE -1.54 VYAIRE PFT FEV1 PRE 1.43(A) 1.44 - 2.80 L VYAIRE PFT FEV1 PRED 2.15 VYAIRE PFT FEV1 LLN 1.44 VYAIRE PFT HVY7JTJPOXBQS -1.67 VYAIRE PFT FEV1_Pre%Pred 66 % % VYAIRE PFT FEV1 PREDAUTCopper Basin [facility] Center (2011) VYAIRE PFT FEV1 Z-SCORE -1.67 VYAIRE PFT FEV1/FVC PRE 70.10 62.93 - 89.29 % VYAIRE PFT CGT2TDMZHXI 77 VYAIRE PFT CSE0LXNJFW 63 VYAIRE PFT EGE4DTCTZQCUHNIZ -0.82 VYAIRE PFT HFH8YSSGCF%PRED 91 % % VYAIRE PFT DBD5ICEHHOIS [facility] (2011) VYAIRE PFT DSC7QCLTDFYYG -1 VYAIRE PFT JMR16-20% PRE 0.89 0.54 - 3.41 L/s VYAIRE PFT XQQ42-54%_Pred 1.67 VYAIRE PFT HJD4973%LLN 0.54 VYAIRE PFT TYH9559%PREZSCORE -1.03 VYAIRE PFT MQV0864%PRE%PRED 54 % % VYAIRE PFT PTJ0961%PREDSaint [facility]ick[facility] (2011) VYAIRE PFT PEF PRE 3.99(A) 4.25 - 8.75 L/s VYAIRE PFT PEF PRED 6.50 VYAIRE PFT PEF LLN 4.25 VYAIRE PFT PEFPREZSCORE -1.83 VYAIRE PFT PEFPRE%PRED 61 % % VYAIRE PFT PEF PR[facility] NHAN[facility] III (1998) VYAIRE PFT NCCIQHTFOLIPLSTJ2NO E 10.95(A) 15.45 - 28.11 ml/(min* mmHg) VYAIRE PFT DLCOSINGLEBREATH PRED 21.21 VYAIRE PFT DLCOSINGLEBREATH LLN 15.45 VYAIRE PFT DLCOSINGLEBREATH Z-SCORE -3.21 VYAIRE PFT DLCOSINGLEBREATH % PRED 51.6 % VYAIRE PFT DLCOSINGLEBREATH PREDEAST[facility] Stanojevic TLCO GLI (2019) VYAIRE PFT DLCOSINGLEBREATH Z-SCORE -3.21 12/03/2024 3:42 PM EDT VYAIRE PFT JKAFOX0HCD 3.21 3.00 - 5.28 ml/(min* mmHg*L) VYAIRE PFT DLCOVAPRED 4.09 VYAIRE PFT DLCOVALLN 3.00 VYAIRE PFT DLCOVAZSCORE -1.31 VYAIRE PFT DLCOVA%PRED 78.5 % VYAIRE PFT DLCOVAPREDAUT St[facility] TLCO GLI (2019) VYAIRE PFT DLCOVAZSCORE -1.31 12/03/2024 3:42 PM EDT VYAIRE PFT DZCMVMLJRPCKQV5TUY 3.41(A) 4.19 - 6.32 L VYAIRE PFT VASINGLEBREATH PRED 5.22 VYAIRE PFT VASINGLEBREATH LLN 4.19 VYAIRE PFT VASINGLEBREATH Z-SCORE -3.00 VYAIRE PFT VASINGLEBREATH % PRED 65.4 % VYAIRE PFT VASINGLEBREATH PREDEAST[facility] Stanojevic TLCO GLI (2019) VYAIRE PFT VASINGLEBREATH Z-SCORE -3.00 12/03/2024 3:42 PM EDT VYAIRE PFT GZFODTAXDFROAII1RCX 2.06 1.99 - 3.64 L VYAIRE PFT [...] % PRED 60.2 % VYAIRE PFT TLCSINGLEBREATH PREDEn[facility] Lung volumes GLI (2019)__ VYAIRE PFT CLM0QMH 4.81 4.61 - 7.17 L VYAIRE PFT TLCPRED 5.88 VYAIRE PFT TLCLLN 4.61 VYAIRE PFT TLCULN 7.17 VYAIRE PFT TLCZSCORE -1.38 VYAIRE PFT TLC%PRED 81.9 % VYAIRE PFT TLCPREDEncompass [facility] Lung volumes GLI (2019)__ VYAIRE PFT VC0PRE [...] VYAIRE PFT IC%PRED 41.7 % VYAIRE PFT ICPREDAUTOhiohealth [facility] Lung volumes GLI (2019)__ VYAIRE PFT FNBBJGFQ9OEH 3.75 2.20 - 4.35 L VYAIRE PFT FRCPLETH PRED 3.16 VYAIRE PFT FRCPLETH LLN 2.20 VYAIRE PFT FRCPLETH ULN 4.35 VYAIRE PFT FRCPLETH Z-SCORE 0.86 VYAIRE PFT FRCPLETH % PRED 118.8 % VYAIRE PFT FRCPLETH [facility]En[facility]I (2019)__ VYAIRE PFT [id number] 0.99 0.27 - 1.92 L VYAIRE PFT [...] Nguyễn Lung volumes GLI (2019)__ VYAIRE PFT [id number] 57.25(A) 25.79 - 51.08 % VYAIRE PFT [...] underwent pulmonary function testing today at the [facility]. The patient underwent spirometry, lung volumes [...] documented as of this encounter Care Teams Hospice Spiritual Care Coordinator Relationship Specialty Start Date End Date Damian Saini MD [address] [facility] [place] [address] PCP - General 09/12/20 documented as of this encounter
--- OUTSIDE RECORDS SUMMARY | 2024-12-03 15:00 | XMS_ITS | Encounter Summary ---
Author Organization Healthcare Address [address] [place] [address] Care Team Providers Care Motor Vehicle Parts Interpreter Name Role Phone Damian Saini MD Primary Care Provider [phone] Reason for Referral * Consultation (Routine) - Authorized Specialty Diagnoses / Procedures Referred By Marco Antonio lee Referred To Contact Diagnoses Bronchiectasis without complication (CMS/HCC) Nikko Morfin MD [address] [address] Phone: tel: fax: Referral ID Status Reason Start Date Expiration Date V isits Requested Visits Authorized [id number] Authorized 12/03/2024 06/04/2026 1 1 Reason for Visit * Reason Comments Follow-up * Consultation (Routine) - Closed Specialty Diagnoses / Procedures Referred By Marco Antonio lee Referred To Contact Diagnoses Bronchiectasis without complication (CMS/HCC) Nikko Morfin MD [address] [address] Phone: tel: fax: Referral ID Status Reason Start Date Expiration Date Visits Re quested Visits Authorized [id number] Closed 08/30/2024 03/01/2026 1 1 Encounter Details Date Type Department Care Team (Latest Contact Info) Description 12/03/2024 3:00 PM EDT Office Visit Professional [facility] [address] [place] [address] Nikko Morfin MD [address] [place] [address] Bronchiectasis without complication (CMS/HCC) (Primary [...] any time in the past 12 m [facility], were you homeless or living in a intermediate (including now)? No 08/02/2024 Utilities Answer Date Recorded In the past 12 months has th e [employer], gas, oil, or water [employer] threatened to shut off services in your [...] Influenza, high-dose, quadrivalent 05/23/2023 Moderna COVID-19 Vaccine (Hvac Operations Technician) 12+ years 06/11/2020, 07/09/2020, 03/11/2021 Pneumococcal 20-kel [...] Aspergillus IgE negative CF negative Sputum from [facility] negative for AFB Impression: Bronchiectasis Fibrotic Lung [...] recurrent aspiration - sputum AFB x3 - [facility] - sputum gram stain and culture -[facility] - CF sputum today - flutter [...] Info) Description 12/13/2024 12:40 PM EDT [facility]ointment [facility] [address], [address] [place] [address] 12/13/2024 2:45 PM EDT Clinical Support [facility] Multidisciplinary Oncology Clinic [address] [place] [phone] 12/13/2024 3:00 PM EDT Office Visit [facility] [address] [place] [phone] Nia Johnson APRN 800 [facility] [address] [place] [address] 12/21/2024 2:30 PM EDT Office Visit [facility] Head[facility] Neck [facility] Respiratory [address] [facility], 2nd [place] [address] Rishi Deluca, MAURICIO [address] [facility] [address] [place] [address] 03/11/2025 11:40 AM EST Office Visit [facility] Specialty Care Clinic [address] [facility], [address] [place] [address] Nikko Morfin MD [address] [place] [address] Pending Results Name Type Priority [...] documented as of this encounter Care Teams Motor Vehicle Parts Interpreter Relationship Specialty Start Date End Date Damian Saini MD [address] [facility] [place] [address] PCP - General 09/12/20 documented as of this encounter
--- OUTSIDE RECORDS SUMMARY | 2024-12-06 08:52 | XMS_ITS | Encounter Summary ---
Author Organization [facility] ystem Address [address] [place] [phone] Care Team Providers Care Underwriting Technician Name Role Phone Damian Saini MD Primary Care Provider + Encounter Details Date Type Department Care Team (Late st Contact Info) Description 07/12/2024 Results Follow-Up [facility] [address] [facility] [phone] Damian Saini MD [address] [facility] [place] [address] Social History Tobacco Use Types Packs/Day Years Used Date Smoking Tobacco: Never Smokeless Tobacco: Never Alcohol Use Standard Drinks/Week Comments Not Currently 0 (1 standard drink = 0.6 oz pur e alcohol) PHQ-2 Answer Date Recorded Patient Health Questionnaire-2 Score 0 06/25/2024 Sex and Gender Information Value Date Recorded Sex Assigned at Not on file Legal Sex Male 11:12 AM EDT Gender Identity Not on file Sexual Orientation Not on file documented as of this encounter Plan of Treatment Not on file documented as of this encounter Visit Diagnoses Not on filedocumented in this encounter Care Teams Underwriting Technician Relationship Specialty Start Date End Date Damian Saini MD [address] [place] [address] PCP - General Family Medicine 05/23/23 documented as of this encounter
--- OUTSIDE RECORDS SUMMARY | 2024-12-06 08:52 | XMS_ITS | Clinical Summary ---
Author Organization [facility] yste Address [address] [place] [address] Care Team Providers Care Meat Blender Name Role Phone Damian Saini MD Primary Care Provider + Allergies Active Allergy Reactions Criticality Noted Date Comments Sulfamethoxazole-Trimethoprim Other (See Comments) Low 08/30/2024 tremors Medications IBUPROFEN 400MG/5ML SUSP Administer 5 mL per G tube Every 6 (Six) Hours As Needed (fever). 180 mL 1 Active multivitamin with minerals tablet tablet 1 tablet by Per PEG Tube route Daily. 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 25 Encounters Date Type Department Care Team Description 09/20/2024 12:15 PM EDT Office Visit [facility] FAMILY MEDICINE [address] [place] [address] Damian Saini MD Contusion of sacrum, initial encounter (Primary Dx); Fall, initial encounter 09/20/2024 Travel from Last 3 Months Immunizations Immunization Administration Dates Next Due Fluzone High-Dose 65+yrs 05/23/2023 Pneumococcal Conjugate 20-Valent (PCV20) 024 Pneumococcal, Unspecified 04/02/2016 Td (TDVAX) 07/03/1996 Family History Medical History Relation Name Comments Diabetes Brother Relation Name Status Comments Brother Social History Tobacco Use Types Packs/Day Years Used Date Smoking Tobacco: Never Smokeless Tobacco: Never Tobacco Cessation:Counseling Given: Not Answered Alcohol Use Standard Drinks/Week Comments Not Currently 0 (1 standard drink = 0.6 oz pur e alcohol) PHQ-2 Answer Date Recorded Patient Health Questionnaire-2 Score 0 06/25/2024 Sex and Gender Information Value Date Recorded Sex Assigned at Not on file Legal Sex Male 11:12 AM EDT Gender Identity Not on file Sexual Orientation Not on file Last Filed Vital Signs Vital Sign Reading Time Taken Comments Blood Pressure 130/70 09/20/2024 12:09 PM EDT Pulse 76 09/20/2024 12:09 PM EDT Temperature 36.6 C (97.8 F) 09/20/2024 12:09 PM EDT Respiratory Rate 14 09/20/2024 12:09 PM EDT Oxygen Saturation 94% 09/20/2024 12:09 PM EDT Inhaled Oxygen Concentration - - Weight 56.2 kg (124 lb) 09/20/2024 12:09 PM EDT Height 163.8 cm (5' 4.5 ) 09/20/2024 12:09 PM ED T Body Mass Index 20.96 09/20/2024 12:09 PM EDT Plan of Treatment Health Maintenance Due Date Last Done Comments COLOGUARD 1994 COLON CANCER SCREENING 5 YEA R SIGMOIDOSCOPY 1994 COLONOSCOPY 1994 [address] CANCER SCREENING 1994 CT COLONOGRAPHY 1994 FECAL OCCULT BLOOD TEST 1994 FIT Testing (1 year) 1994 ZOSTER VACCINE (1 of 2) 1999 TDAP/TD VACCINES (2 - Tdap) 07/03/2006 07/03/1996 ANNUAL PHYSICAL 05/23/2023 COVID-19 Vaccine ( - season) 2024 03/11/2021, 07/09/2020, 06/11/2020 RSV Vaccine - Adults (1 - 1- dose 75+ series) 2024 INFLUENZA VACCINE 01/30/2025 05/23/2023 Pneumococcal Vaccine 50+ Completed 01/19/2024, 1206/2015 HEPATITIS C SCREENING Completed 08/03/2024 Insurance [employer] [facility] [employer] P[employer] Care Teams Meat Blender Relationship Specialty Start Date End Date Damian Saini MD [address] [facility] [address] [place] [address] PCP - General Family Medicine 05/23/23
--- OUTSIDE RECORDS SUMMARY | 2024-12-06 08:52 | XMS_ITS | Clinical Summary ---
Author Organization Healthcare Address [address] [place] [address] Care Team Providers Care Bankruptcy Processor Name Role Phone Damian Saini MD Primary Care Provider [phone] Allergies Active Allergy Reactions Criticality Noted Date Comments Sulfamethoxazole-Trimetho prim Other - please document in the comment field Low 08/30/2024 tremors Medications multivitamin (Theragran-M) tablet 1 tablet by Per G Tube route daily. Active ondansetron ODT (Zofran-ODT) 4 MG disintegrating tablet Dissolve 2 tablets on the tongue every 6 hours as needed for nausea or vomiting. 20 tablet 08/03/19 25 Active Additional Information Patient not taking.Reported on 12/03/2024 promethazine (Phenergan) 25 MG suppository Insert 1 suppository into the rectum every 6 hours as needed for nausea or vomiting. 12 each 08/03/19 25 Active Additional Information Patient not taking.Reported on 12/03/2024 albuterol (Proventil) (2.5 MG/3ML) 0.083% nebulizer solution Take 3 mL by nebulization every 6 hours as needed for wheezing. 75 mL 5 12/04/19 25 Active sodium chloride 7 % nebulizer solution nebulizer solution Take 4 mL by nebulization 2 times a day as needed for cough. 750 mL 12 12/04/19 25 Active Active Problems Problem Noted Date Diagnosed Date Empyema 07/22/2024 Squamous cell carcinoma of head and neck 025 PEG (percutaneous endoscopic gastrostomy) status 07/22/2024 Pneumonia of both lungs due to infectious organi sm 07/22/2024 Acute hypoxemic respiratory failure 07/20/2024 Ringing in the ears 01/19/2024 Left rib fracture 11/08/2023 Dysphagia 04/29/2017 Cancer Sinusitis Encounters Date Type Department Care Team Description 12/03/2024 3:00 PM EDT Office Visit [facility] [address], [address] [place] [address] Nikko Morfin MD Bronchiectasis without complication ([facility]) (Primary Dx); Cough, unspecified type; Recurrent aspiration pneumonitis 12/03/2024 1:30 PM EDT Ancillary Procedure [facility] [address], [address] [place] [address] Bronchiectasis without complication ([facility]/HCC) 12/03/2024 Travel 11/28/2024 Telephone [facility] [address], [address]nd [place] [address] Rishi Deluca PA 11/23/2024 Telephone [facility] [address] [place] [address] None, None 10/26/2024 Telephone [facility] Medicine Specialties [address], [address] [place] [address] Nikko Morfin MD 10/02/2024 Telephone [facility] Multidisciplinary Oncology Clinic [address] [place] [address] Nia Johnson, MAJOR ASSEMBLY INSPECTOR from Last 3 Months Immunizations Immunization Administration Dates Next Due Influenza, high-dose, quadrivalent 05/23/2023 Pneumococcal 20-kel Conj Vaccine 01/19/2024 Pneumococcal, Unspecified 04/02/2016 Rsv, Bivalent, Protein Subun it Rsvpref, Diluent Reconstituted, 0.5mL, PF 11/19/2024 TD (adult), 2 Lf tetanus tox oid, preservative free, adsorbed 07/03/1996 Zoster, Recombinant 11/19/2024 Family History Medical History Relation Name Comments Diabetes Brother 1 Ally Diabetes Brother 2 Wilber No Known Problems Father No Known Problems Maternal Grandfather No Known Problems Maternal Grandmother Cancer Mother Cori Heart disease Mother Cori No Known Problems Paternal Grandfather No Known Problems Paternal Grandmother Relation Name Status Comments Brother 1 Ally Brother 2 Drnina Father Maternal Grandfather Maternal Grandmother Mother Cori Paternal Grandfather Paternal Grandmother Social History Tobacco Use Types Packs/Day Years Used Date Smoking Tobacco: Never Passive Smoke Exposure: Past Smokeless Tobacco: Never Tobacco Cessation:Counseling Given: Not Answered Alcohol Use Standard Drinks/Week Comments Never 0 [...] any time in the past 12 m [facility], were you homeless or living in a half-way (including now)? No 08/02/2024 Utilities Answer Date Recorded In the past 12 months has [employer] electric, gas, oil, or water company threatened [...] Pulse 84 12/03/2024 12:54 PM EDT Temperature 36.7 C (98.1 F) 08/31/2024 2:00 PM EDT Respiratory Rate 16 08/31/2024 2:00 PM EDT Oxygen Saturation 92% 12/03/2024 12:54 PM EDT Inhaled Oxygen Concentration - - Weight 58.2 kg (128 lb 4.9 oz) 12/03/2024 12:54 PM EDT Height 165.1 cm (5' 5 ) 12/03/2024 12:54 PM EDT Body Mass Index 21.35 12/03/2024 12:54 PM EDT Plan of Treatment Upcoming Encounters Date Type Department Care Team (Late st Contact Info) Description 12/13/2024 12:40 PM EDT Appointment [facility] [address], [address] [place] [address] 12/13/2024 2:45 PM EDT Clinical Support [facility] Multidisciplinary Oncology Clinic [address] [place] [address] 12/13/2024 3:00 PM EDT Office Visit [facility] Multidisciplinary Oncology Clinic [address] [place] [address] Nia Johnson, MAJOR ASSEMBLY INSPECTOR [address] [facility] [facility] [address] [facility] [address] [place] [address] 12/21/2024 2:30 PM EDT Office Visit [facility] [address] [place] [address] Rishi Deluca, PA [address] [place] [address] 03/11/2025 11:40 AM EST Office Visit [facility] [address], [address] [place] [address] Nikko Morfin MD [address] [facility] [address] [place] [address] Health Maintenance Due Date Last Done Comments [facility]-/Child/Adol SDOH Screenings [address] CT Colonography 1994 Colonoscopy 1994 FIT-DNA 1994 FIT 1994 FOBT 1994 Sigmoidoscopy 1994 [facility]-Colorectal Cancer Screening 1994 [facility]-DTaP,Tdap,and Td Vaccine s (1 - Tdap) 07/04/1996 07/03/1996 [id number]-JUDWR-21 Vaccine (4 - season) 2024 03/11/2021, 07/09/2020, 06/11/2020 [facility]-Bone Density Scan 02/25/2024 02/24/2023 [facility]-Influenza Vaccine (#1) 2024 05/23/2023 [facility]-Zoster Vaccines (2 of 2) 01/14/2025 11/19/2024 [facility]- SDOH Screenings 01/25/2025 [facility]-Adult SDOH Screenings 01/25/2025 07/25/2024 [facility]-Diabetes: Hemoglobin A1C 07/26/2025 07/26/2024 [facility]-Depression Screening 12/03/2025 025, 08/31/2024, 11/24/2023 [facility]-Pneumococcal Vaccine: 50 + Years Completed 01/19/2024, 04/02/2016 [facility]-Hepatitis C Screening Completed 08/03/2024 [facility]-RSV Vaccine: 60+ Years o r Completed 11/19/2024 HPV Vaccines Aged Out No longer eligi ble based on patient's age to complete this topic [facility]-HIB Vaccines Aged Out No longer e ligible based on patient's age to complete this topic [facility]-Hepatitis A Vaccines Aged Out No longer eligible based on patient's age to complete this topic [facility]-IPV Vaccines Aged Out No longer e ligible based on patient's age to complete this topic [facility]-Rotavirus Vaccines Aged Out No lo nger eligible based on patient's age to complete this topic Procedures Procedure Name Priority Date/Time Associated Diagnosis Comments CYSTIC FIBROSIS RESPIRATORY CULTURE AND GRAM STAIN Routine 12/03/2024 3:43 PM EDT Bronchiectasis without complication (CMS/HCC) HC DIFFUSING CAPACITY - CARBON MONOXIDE DIFFUSING CAPACITY Routine 12/03/2024 3:42 PM EDT Bronchiectasis without complication (CMS/HCC) HEPATITIS C ANTIBODY - ED W/REFLEX TO HCV QUANT PCR STAT 08/03/2024 7:56 AM EDT HEMOGLOBIN A1C Add-On 07/26/2024 1:22 AM EDT DEXA BONE DENSITY Routine 02/24/2023 12: 42 PM EDT Head and neck cancer (CMS/HCC) Pain from Last 3 Months or Most Recently Relevant to Health Maintenance Results * (ABNORMAL) Pulmonary function testing (12/03/2024 3:42 PM EDT) BRB1TPN 2.04 1.99 - 3.64 L VYAIRE PFT FVC PRED 2.81 VYAIRE PFT FVC LLN 1.99 VYAIRE PFT FVCPREZSCORE -1.54 VYAIRE PFT FVCPRE%PRED 73 % % VYAIRE PFT FVC PREDAUTH US_Quanjer GLI (2011) VYAIRE PFT FVC Z-SCORE -1.54 VYAIRE PFT FEV1 PRE 1.43(A) 1.44 - 2.80 L VYAIRE PFT FEV1 PRED 2.15 VYAIRE PFT FEV1 LLN 1.44 VYAIRE PFT GYW9WVQZFGOVD -1.67 VYAIRE PFT FEV1_Pre%Pred 66 % % VYAIRE PFT FEV1 PREDAUTJackson[facility] (2011) VYAIRE PFT FEV1 Z-SCORE -1.67 VYAIRE PFT FEV1/FVC PRE 70.10 62.93 - 89.29 % VYAIRE PFT RMW8TXOQYKE 77 VYAIRE PFT VLF6CJQGWJ 63 VYAIRE PFT ALY2FRDOMUGDTFQP -0.82 VYAIRE PFT IXX1QEQIQW%PRED 91 % % VYAIRE PFT XPP4TLCUPWWP [facility] (2011) VYAIRE PFT VDD4ECIIGZGQK -1 VYAIRE PFT EEA43-33% PRE 0.89 0.54 - 3.41 L/s VYAIRE PFT QCH00-16%_Pred 1.67 VYAIRE PFT SIZ4075%LLN 0.54 VYAIRE PFT VQV7993%PREZSCORE -1.03 VYAIRE PFT SEK5481%PRE%PRED 54 % % VYAIRE PFT GLT6018%PREDAUTJackson[facility]Madison [facility] (2011) VYAIRE PFT PEF PRE 3.99(A) 4.25 - 8.75 L/s VYAIRE PFT PEF PRED 6.50 VYAIRE PFT PEF LLN 4.25 VYAIRE PFT PEFPREZSCORE -1.83 VYAIRE PFT PEFPRE%PRED 61 % % VYAIRE PFT PEF PREDAUT NHANES III (1998) VYAIRE PFT PZGKGKXNRTWKCUVU6WH E 10.95(A) 15.45 - 28.11 ml/(min* mmHg) VYAIRE PFT DLCOSINGLEBREATH PRED 21.21 VYAIRE PFT DLCOSINGLEBREATH LLN 15.45 VYAIRE PFT DLCOSINGLEBREATH Z-SCORE -3.21 VYAIRE PFT DLCOSINGLEBREATH % PRED 51.6 % VYAIRE PFT DLCOSINGLEBREATH PREDAUTH Stanojevic TLCO GLI (2019) VYAIRE PFT DLCOSINGLEBREATH Z-SCORE -3.21 12/03/2024 3:42 PM EDT VYAIRE PFT KIOOOT6IYF 3.21 3.00 - 5.28 ml/(min* mmHg*L) VYAIRE PFT DLCOVAPRED 4.09 VYAIRE PFT DLCOVALLN 3.00 VYAIRE PFT DLCOVAZSCORE -1.31 VYAIRE PFT DLCOVA%PRED 78.5 % VYAIRE PFT DLCOVAPREDAUTH Stanojevic TLCO GLI (2019) VYAIRE PFT DLCOVAZSCORE -1.31 12/03/2024 3:42 PM EDT VYAIRE PFT CEAZKBBJDUGTDI9QNP 3.41(A) 4.19 - 6.32 L VYAIRE PFT VASINGLEBREATH PRED 5.22 VYAIRE PFT VASINGLEBREATH LLN 4.19 VYAIRE PFT VASINGLEBREATH Z-SCORE -3.00 VYAIRE PFT VASINGLEBREATH % PRED 65.4 % VYAIRE PFT VASINGLEBREATH PREDAUT Stanojevic TLCO GLI (2019) VYAIRE PFT VASINGLEBREATH Z-SCORE -3.00 12/03/2024 3:42 PM EDT VYAIRE PFT RJLCHOFWTDPPKEN0ZSG 2.06 1.99 - 3.64 L VYAIRE PFT IVCSINGLEBREATH PRED 2.81 VYAIRE PFT IVCSINGLEBREATH LLN 1.99 VYAIRE PFT IVCSINGLEBREATH Z-SCORE -1.51 VYAIRE PFT IVCSINGLEBREATH % PRED 73.3 % VYAIRE PFT IVCSINGLEBREATH PREDAUTH US_Quanjer GLI (2011) VYAIRE PFT WILLIAM% VCMAX PRE 94.82 % VYAIRE PFT TLC SB PRE 3.54(A) 4.61 - 7.17 L VYAIRE PFT TLCSINGLEBREATH PRED 5.88 VYAIRE PFT TLCSINGLEBREATH LLN 4.61 VYAIRE PFT TLCSINGLEBREATH Z-SCORE -3.05 VYAIRE PFT TLCSINGLEBREATH % PRED 60.2 % VYAIRE PFT TLCSINGLEBREATH PREDPaul [facility]. [facility] GLI (2019)__ VYAIRE PFT WKZ7ROD 4.81 4.61 - 7.17 L VYAIRE PFT TLCPRED 5.88 VYAIRE PFT TLCLLN 4.61 VYAIRE PFT TLCULN 7.17 VYAIRE PFT TLCZSCORE -1.38 VYAIRE PFT TLC%PRED 81.9 % VYAIRE PFT TLCPREDPaul [facility]. [facility] Lung volumes GLI (2019)__ VYAIRE PFT VC0PRE [...] VYAIRE PFT IC%PRED 41.7 % VYAIRE PFT ICPREDPaul A. [facility] Lung volumes GLI (2019)__ VYAIRE PFT RTYQZUGG8RCY 3.75 2.20 - 4.35 L VYAIRE PFT FRCPLETH PRED 3.16 VYAIRE PFT FRCPLETH LLN 2.20 VYAIRE PFT FRCPLETH ULN 4.35 VYAIRE PFT FRCPLETH Z-SCORE 0.86 VYAIRE PFT FRCPLETH % PRED 118.8 % VYAIRE PFT FRCPLET PREDPaul [facility]. [facility] Lung volumes GLI (2019)__ VYAIRE PFT VHD6KPV 0.99 0.27 - 1.92 L VYAIRE PFT [...] Nguyễn Lung volumes GLI (2019)__ VYAIRE PFT RV%BGY7PYA 57.25(A) 25.79 - 51.08 % VYAIRE PFT RV%TLCPRED 38 VYAIRE PFT RV%TLCLLN 26 VYAIRE PFT RV%TLCULN 51 VYAIRE PFT RV%TLCZSCORE 2.41 VYAIRE PFT RV%TLC%PRED 150.1 % VYAIRE PFT RV%TLCPREDAUTH Nguyễn Lung volumes GLI (2019)__ VYAIRE PFT Anatomical Region Laterality Modality PFT 12/03/2024 11:3 8 AM EDT Narrative 12/03/2024 9:59 PM EDT Pulmonary Function Testing Report Juan Luis Bah underwent pulmonary function testing today at the [facility] The patient underwent spirometry, lung volumes by [...] significant decrease in FEV1, FVC, and DLCO. us Nikko Morfin MD PFT ORDERABLES Final Result * Hepatitis C Antibody - ED W/Reflex to HCV Quant PCR (08/03/2024 7:56 AM EDT) Hepatitis C Antibody Negative Negative 08/03/2024 8:56 AM EDT [facility] Blood Venous blood specimen / Unknown Venipuncture / Unknown 08/03/2024 7:56 AM EDT 08/03/2024 8:16 AM EDT us Chetan Jose MD LAB BLOOD ORDERABLES Final Re sult Performing Organization Address [facility] Co de Phone Number [facility] [address] [place] [address] * (ABNORMAL) Hemoglobin A1c (07/26/2024 1:22 AM EDT) Hemoglobin A1c 5.9(H) <5.7 % 07/26/2024 11:08 AM EDT [facility] Blood Venous blood specimen / Unknown Venipuncture / Unknown 07/26/2024 1:22 AM EDT 07/26/2024 1:45 AM EDT Narrative [facility] - 07/26/2024 11:08 AM EDT HA1C Interpretive Data: Diagnosis of Diabetes: Diabetic > or = 6.5% Pre-diabetic 5.7 to 6.4% Non-diabetic < or = 5.6% Glycemic Targets for Type I and Type II Diabetics: Non- Adults <7.0% Adults <6.0% Children and Adolescents <7.5% Source: [place] [employer]. Standards of medical care in diabetes,2017. Diabetes Care.2017:40 (suppl 1):S1-S135. HbA1c assay performed by an ion-exchange chromatography method that is certified traceable to the DCCT. us Deloris San DO LAB BLOOD ORDERABLES Final Result Performing Organization Address City/[facility]/ZIP Co de Phone Number [facility] [address] [place] [address] * Dexa Bone Density (02/24/2023 12:42 PM EDT) Anatomical Region Laterality Modality L-spine Nuclear Medicine Impressions 02/24/2023 12:46 PM EDT Osteoporosis. RECOMMENDATIONS: FDA-approved medical therapy beyond calcium and vitamin D is recommended after appropriate evaluation to exclude secondary causes of osteoporosis. Timing of follow-up DXA should be determined based on clinical assessment, and may be appropriate in two years to evaluate change in BMD. A follow-up DXA should be performed on the same DXA scanner to allow for direct comparison and calculation of change in BMD. CRITICAL RESULT: No. COMMUNICATION: Per this written report. Drafted by Donte Chew MD on 02/24/2023 12:44 PM Final report signed by Donte Chew MD on 02/24/2023 12:46 PM Narrative 02/24/2023 12:46 PM EDT CLINICAL INDICATION: Male who is 72 years of age. Head and neck cancer surveillance. TECHNIQUE: Bone mineral density (BMD) testing of the lumbar spine, the left hip, the right hip, and/or the non-dominant forearm was performed using a [employer] Horizon A Dual- energy X-ray Absorptiometry (DXA) scanner (software version 13.6.1.2). COMPARISON/CORRELATION: No comparison. No recent correlative imaging. FINDINGS: The technical quality is acceptable. For males 50 years of age or older, the T-scores are used in the assessment. Based on The World Health Organization classification system: Normal bone mass is defined as BMD above normal or equal to/less than one standard deviation below normal; Low bone mass/osteopenia is defined as BMD more than one standard deviation below normal, but less than 2.5 standard deviations below normal; Osteoporosis is defined as BMD equal to/more than 2.5 standard deviations below normal. Lumbar Spine:The BMD of L1-L4 is 0.76 g/cm2, corresponding to a T-score of -3. Left Hip: The BMD of the femoral neck is 0.65 g/cm2, corresponding to a T-score of -2.1 and the BMD of the total hip is 0.76 g/cm2, corresponding to a T-score of - 1.8. Right Hip: The BMD of the femoral neck is 0.6 g/cm2, corresponding to a T-score of -2.4 and the BMD of the total hip is 0.71 g/cm2, corresponding to a T-score of - 2.1. Procedure Note Donte Green MD - 02/24/2023 CLINICAL INDICATION: Male who is 72 years of age. Head and neck cancer surveillance. TECHNIQUE: Bone mineral density (BMD) testing of the lumbar spine, the left hip, theright hip, and/or the non-dominant forearm was performed using a M[employer] A Dual- energy X-ray Absorptiometry (DXA) scanner (software vicymro49.6.1.2). COMPARISON/CORRELATION: No comparison. No recent correlative imaging. FINDINGS: The technical quality is acceptable. For males 50 years of age or older, the T-scores are used in theassessment. Based on The World Health Organization classificationsystem: Normal bone mass is defined as BMD above normal or equal to/less than onestandard deviation below normal; Low bone mass/osteopenia is defined as BMD more than one standarddeviation below normal, but less than 2.5 standard deviations belownormal; Osteoporosis is defined as BMD equal to/more than 2.5 standard deviationsbelow normal. Lumbar Spine:The BMD of L1-L4 is 0.76 g/cm2, corresponding to a T-score of-3. Left Hip: The BMD of the femoral neck is 0.65 g/cm2, corresponding to aT-score of -2.1 and the BMD of the total hip is 0.76 g/cm2, correspondingto a T-score of - 1.8. Right Hip: The BMD of the femoral neck is 0.6 g/cm2, corresponding to aT-score of -2.4 and the BMD of the total hip is 0.71 g/cm2, correspondingto a T-score of - 2.1. IMPRESSION: Osteoporosis. RECOMMENDATIONS: FDA-approved medical therapy beyond calcium and vitamin D is recommendedafter appropriate evaluation to exclude secondary causes of osteoporosis. Timing of follow-up DXA should be determined based on clinical assessment,and may be appropriate in two years to evaluate change in BMD. A follow-upDXA should be performed on the same DXA scanner to allow for directcomparison and calculation of change in BMD. CRITICAL RESULT: No. COMMUNICATION: Per this written report. Drafted by Donte Chew MD on 02/24/2023 12:44 PM Final report signed by Donte Chew MD on 02/24/2023 12:46 PM Nia Johnson MAJOR ASSEMBLY INSPECTOR IMG DXA PROCEDURES Final Resu lt from Last 3 Months or Most Recently Relevant to Health Maintenance Additional Health Concerns Infection Onset Date Last Indicated MRSA 07/20/2024 12/03/2024 Tuberculosis Rule-Out 07/28/2024 07/28/2024 MTB Rule-Out 07/28/2024 07/28/2024 Insurance [facility] [place] [place] [address] Advance Directives * Full Code (Latest Code Status on File) Date Activated Date Inactivated Comments 07/20/2024 11:49 PM 08/01/2024 4:29 PM Care Teams Bankruptcy Processor Relationship Specialty Start Date End Date Damian Saini MD [address] [facility] [place] [address] PCP - General 09/12/20
--- OUTSIDE RECORDS SUMMARY | 2024-12-06 08:52 | XMS_ITS | Encounter Summary ---
Author Organization Healthcare Address [address] [place] [address] Care Team Providers Care Bander And Cellophaner Helper Machine Name Role Phone Damian Saini MD Primary Care Provider [phone] Encounter Details Date Type Department Care Team (Late st Contact Info) Description 11/23/2024 Telephone [facility] [address] [place] [address] None, None [address] [place], [place] [id number] Social History Tobacco Use Types Packs/Day Years [...] Date Recorded Patient Health Questionnaire-2 Score 0 08/31/2024 Hunger Vital Sign Answer Date Recorded Within the past 12 months, y ou worried that your food would run out before you got the money to buy more. Never true 08/03/19 Within the past 12 months, t he [...] in the past 12 m [facility], were you homeless or living in [...] on file documented as of this encounter Miscellaneous Notes * Telephone Encounter - Nanette Bryan - 11/23/2024 9:42 AM EDT Returned call to pt lm to call us back documented in this encounter Plan of Treatment Upcoming Encounters Date Type Department Care Team (Late st Contact Info) Description 12/13/2024 12:40 PM EDT Appointment [facility] [address] [place] [address] 12/13/2024 2:45 PM EDT Clinical Support [facility] [address] [place] [address] 12/13/2024 3:00 PM EDT Office Visit [facility] [address] [place] [address] Nia Johnson, KEY PUNCH TEACHER [address] [facility] [address] [place] [address] 12/21/2024 2:30 PM EDT Office Visit [facility] [address] [facility] 2nd [place] [address] Rishi Deluca, PA [address] [place] [address] 03/11/2025 11:40 AM EST Office Visit [facility] [address] [place] [address] Nikko Morfin MD [address] [facility] [address] [place] [address] documented as of this encounter Visit Diagnoses Not on filedocumented in this encounter Additional Health Concerns Infection Onset Date Last Indicated Resolved Time MRSA 07/20/2024 12/03/2024 Tuberculosis Rule-Out 07/28/2024 07/28/2024 MTB Rule-Out 07/28/2024 07/28/2024 Assessment Noted Time PHQ-9 Depression Total Score: 0 09/01/19 25 1:58 PM EDT A fall risk assessment has been complete d for the patient 08/31/2024 1:59 PM EDT A Body Mass Index follow-up plan has been documented for the patient 08/31/2024 2:28 PM EDT documented as of this encounter Care Teams Bander And Cellophaner Helper Machine Relationship Specialty Start Date End Date Damian Saini MD [address] [place] [address] PCP - General 09/12/20 documented as of this encounter
--- OUTSIDE RECORDS SUMMARY | 2024-12-06 08:52 | XMS_ITS | Encounter Summary ---
Author Organization Healthcare Address [address] [place] [address] Care Team Providers Care Oil Bay Technician Name Role Phone Damian Saini MD Primary Care Provider [phone] Encounter Details Date Type Department Care Team ([facility] st Contact Info) Description 10/26/2024 Telephone [facility] [address] [place] [address] Nikko Morfin MD [address] [facility] [address] [place] [address] Social History Tobacco Use Types Packs/Day Years [...] were you homeless or living in a senior living (including now)? No 08/02/2024 Utilities Answer Date [...] encounter Miscellaneous Notes * Telephone Encounter - Veena Santiago RN - 10/26/2024 3:20 PM EDT Scheduled. * Telephone Encounter - Amanda Fagan - 10/26/2024 1:17 PM EDT Clinical Concern/Question Reason for Call: Pt's is calling to schedule a F/U and states that he may needs a PFT Not sureif he needs one Best contact number: [phone] Optimal time of day to reach caller: ANYTIME Additional comments/information from caller: None Note: Please do not reply to this message. Follow-up communication and further actions as a result of this message need to be communicated with the patient directly, if the patient is not active onMyChart. If the patient is active on MyChart, they will receive notification of the communication/outcome via [employer]t. documented in this encounter Plan of Treatment Upcoming Encounters Date Type Department Care Team ([facility] Contact Info) Description 12/13/2024 12:40 PM EDT Appointment [facility] [address] [place] [address] 12/13/2024 2:45 PM EDT Clinical Support [facility] [address] [place] [address] 12/13/2024 3:00 PM EDT Office Visit [facility] [address] [place] [address] Nia Johnson, AUTO INSPECTOR [address] [facility] [address] [facility] [address] [place] [address] 12/21/2024 2:30 PM EDT Office Visit [facility] [address] [facility]nd [place] [address] Rishi Deluca, PA [address] [place] [address] 03/11/2025 11:40 AM EST [facility] Visit [facility] [address] [facility], [address] [place] [address] Nikko Morfin MD [address] [place] [address] documented as of this encounter Visit Diagnoses [...] documented as of this encounter Care Teams Oil Bay Technician Relationship Specialty Start Date End Date Damian Saini MD [address] [place] [address] PCP - General 09/12/20 documented as of this encounter
--- OUTSIDE RECORDS SUMMARY | 2024-12-06 08:52 | XMS_ITS | Encounter Summary ---
Author Organization Healthcare Address [address] [place] [address] Care Team Providers Care Economic Specialist Name Role Phone Damian Saini MD Primary Care Provider [phone] Encounter Details Date Type Department Care Team ([facility] Contact Info) Description 11/28/2024 Telephone [facility] Head[facility] Neck & Respiratory [address], 2nd [place] [address] Rishi Deluca, PA [address] [place] [address] Social History Tobacco Use Types Packs/Day Years [...] any time in the past 12 m [facility], were you homeless or living in a fdc (including now)? No 08/02/2024 Utilities Answer Date [...] encounter Miscellaneous Notes * Telephone Encounter - Sujatha Stein - 12/06/2024 8:49 AM EDT Patient scheduled for 12/21 * Telephone Encounter - Patrizia Castillo RN - 11/30/2024 12:07 PM EDT Order has been placed. Place schedule with Rishi for a Mini button exchange. Thanks * Telephone Encounter - Aparna Mayorga - 11/28/2024 10:42 AM EDT Patient Phone Message Reason for Call:Patient called to get him schedule to have a new feeding tube in. Best contact number and optimal time of day to reach caller:Ralph [phone] Note: Please do not reply to this message. Follow-up communication and further actions as a result of this message need to be communicated with the patient directly, if the patient is not active onMyChart. If the patient is active on MyChart, they will receive notification of the communication/outcome via Dovo. documented in this encounter Plan of Treatment Upcoming Encounters Date Type Department Care Team ([facility] st Contact Info) Description 12/13/2024 12:40 PM EDT Appointment [facility] [address], [address]nd [place] [address] 12/13/2024 2:45 PM EDT Clinical Support [facility] [address] [place] [address] 12/13/2024 3:00 PM EDT Office Visit [facility] [address] [place] [address] Nia Johnson R, DIRECT SERVICE PROVIDER 800 [facility] [address] [place] [address] 12/21/2024 2:30 PM EDT Office Visit Pav [facility] Head, Neck & Respiratory 800 [facility], 2nd [place] [address] Rishi Deluca, PA [address] [facility] [address] [place] [address] 03/11/2025 11:40 AM EST Office Visit Professional [employer] [facility] [address] [facility], [address] [place] [address] Nikko Morfin MD [address] [place] [address] documented as of this encounter Visit Diagnoses Diagnosis Oropharyngeal dysphagia- Primary Dysphagia, oropharyngeal phase Head and neck cancer (CMS/HCC)- Primary documented [...] documented as of this encounter Care Teams Economic Specialist Relationship Specialty Start Date End Date Damian Saini MD [address] [place] [address] PCP - General 09/12/20 documented as of this encounter
--- OUTSIDE RECORDS SUMMARY | 2024-12-06 08:52 | XMS_ITS | Encounter Summary ---
Author Organization [facility] ystem Address [address] [place] [id number] Care Team Providers Care Port Traffic Manager Name Role Phone Damian Saini MD Primary Care Provider + Encounter Details Date Type Department Care Team (Late st Contact Info) Description 07/11/2024 Results Follow-Up [facility] [address] [facility] [place] [phone] Damian Saini MD 210 [facility] [place] [address] Social History Tobacco Use Types [...] on filedocumented in this encounter Care Teams Port Traffic Manager Relationship Specialty Start Date End Date Damian Saini MD [address] [place] [address] PCP - General Family Medicine 05/23/23 documented as of this encounter
--- OUTSIDE RECORDS SUMMARY | 2024-12-06 08:53 | XMS_ITS ---
Author Organization Healthcare Address [address] 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 Past Treatment and Therapy Plans No past plan information found. Lifetime Dose Tracking * Chemical Lifetime Dose Automatic Entry Manual Entr y CTDIvol 62.8 mGy 62.8 mGy 0 mGy Radiation (DLP) 89.1 mGy-cm 89.1 mGy-cm 0 mGy-cm
--- OUTSIDE RECORDS SUMMARY | 2024-12-06 08:53 | XMS_ITS | Encounter Summary ---
Author Organization Healthcare Address [address] [place] [address] Care Team Providers Care Railroad Car Truck Builder Name Role Phone Damian Saini MD Primary Care Provider [phone] Encounter Details Date Type Department Care Team (Latest Contact Info) Description 12/03/2024 Travel Social History Tobacco Use Types Packs/Day Years [...] were you homeless or living in a retirement (including now)? No 08/02/2024 Utilities Answer Date Recorded In the past 12 months has th e [employer], gas, oil, or water company threatened to [...] Info) Description 12/13/2024 12:40 PM EDT Appointment [facility] [address] [facility]nd [place] [address] 12/13/2024 2:45 PM EDT Clinical Support [facility] [address] [place] [address] 12/13/2024 3:00 PM EDT Office Visit [facility] [address] [place] [address] Nia Johnson, ELEVATOR CONSTRUCTOR SUPERVISOR 800 [facility] [address] [place] [address] 12/21/2024 2:30 PM EDT Office Visit Pav [facility] Head, Neck & Respiratory 800 [facility], 2nd [place] [address] Rishi Deluca, PA [address] [place] [address] 03/11/2025 11:40 AM EST Office Visit Professional [facility] [address] [facility], [address] [place] [address] Nikko Morfin MD [address] [facility] 3rd Fl [address] [place] [address] documented as of this encounter [...] documented as of this encounter Care Teams Railroad Car Truck Builder Relationship Specialty Start Date End Date Damian Saini MD [address] [place] [address] PCP - General 09/12/20 documented as of this encounter
== END 2024-12-06 23:59 | disposition home or self-care (01) ==
LOC: LAB.DROPOF 08:51
PROVIDERS: PCP Family Medicine; Visit Provider Student in an Organized Health Care Education/Training Program
DX: J47.9 Bronchiectasis, uncomplicated (principal)
CPT/HCPCS: 87101; 87116

== ENCOUNTER 2024-12-09 13:14 | Outpatient (CLI) | payer BC, SELFPAY ==
--- OUTSIDE RECORDS SUMMARY | 2024-12-03 13:30 | XMS_ITS | Encounter Summary ---
Author Organization Healthcare Address [address] [place] [address] Care Team Providers Care Brim And Crown Presser Name Role Phone Damian Saini MD Primary Care Provider [phone] Encounter Details Date Type Department Care Team (Latest Contact Info) Description 12/03/2024 1:30 PM EDT Ancillary Procedure [facility] [address], [address] [place] [address] Bronchiectasis without complication (CMS/HCC) Social [...] any time in the past 12 m [facility], were you homeless or living in a fci (including now)? No 08/02/2024 Utilities Answer Date [...] Info) Description 12/13/2024 12:40 PM EDT Appointment [facility] CT [address] [place] [address] 12/13/2024 2:45 PM EDT Clinical Support [facility] [address] [place] [address] 12/13/2024 3:00 PM EDT Office Visit [facility] [address] [place] [address] Nia Johnson, CLIENT SERVICE AND CONSULTING MANAGER [address] [facility] [address] [place] [address] 12/21/2024 2:30 PM EDT Office Visit Pav [facility] Neck [facility] Respiratory [address] [facility] [place] [address] Rishi Deluca, PA [address] [place] [address] 03/11/2025 11:40 AM EST Office Visit [facility] [address], [address] [place] [address] Nikko Morfin MD [address] [place] [address] documented as of this encounter Procedures Procedure Name Priority Date/Time Associated Diagnosis Comments HC DIFFUSING CAPACITY - CARBON MONOXIDE DIFFUSING CAPACITY Routine 12/03/2024 3:42 PM EDT Bronchiectasis without complication (CMS/HCC) documented in this encounter Results * (ABNORMAL) Pulmonary function testing (12/03/2024 3:42 PM EDT) FMZ2ZGK 2.04 1.99 - 3.64 L VYAIRE PFT FVC PRED 2.81 VYAIRE PFT FVC LLN 1.99 VYAIRE PFT FVCPREZSCORE -1.54 VYAIRE PFT FVCPRE%PRED 73 % % VYAIRE PFT FVC PR[facility]Mil[facility] (2011) VYAIRE PFT FVC Z-SCORE -1.54 VYAIRE PFT FEV1 PRE 1.43(A) 1.44 - 2.80 L VYAIRE PFT FEV1 PRED 2.15 VYAIRE PFT FEV1 LLN 1.44 VYAIRE PFT LOU2WXLRQORID -1.67 VYAIRE PFT FEV1_Pre%Pred 66 % % VYAIRE PFT FEV1 PREDAUTMil[facility] (2011) VYAIRE PFT FEV1 Z-SCORE -1.67 VYAIRE PFT FEV1/FVC PRE 70.10 62.93 - 89.29 % VYAIRE PFT UMV3UKJFLAE 77 VYAIRE PFT CRU7ACHOZW 63 VYAIRE PFT WWD3LMSOZIGQMTPR -0.82 VYAIRE PFT NYR9ZVBGME%PRED 91 % % VYAIRE PFT YHI4BEKGBQOD [facility] (2011) VYAIRE PFT HLI6RHDSQAKSE -1 VYAIRE PFT EBG51-76% PRE 0.89 0.54 - 3.41 L/s VYAIRE PFT VFR76-12%_Pred 1.67 VYAIRE PFT DOG7075%LLN 0.54 VYAIRE PFT ISO2081%PREZSCORE -1.03 VYAIRE PFT KAT6464%PRE%PRED 54 % % VYAIRE PFT WFB1874%PREDB[facility] (2011) VYAIRE PFT PEF PRE 3.99(A) 4.25 - 8.75 L/s VYAIRE PFT PEF PRED 6.50 VYAIRE PFT PEF LLN 4.25 VYAIRE PFT PEFPREZSCORE -1.83 VYAIRE PFT PEFPRE%PRED 61 % % VYAIRE PFT PEF PREDUNM [facility] III (1998) VYAIRE PFT BMGCXBTLZHPQRXWW9VU E 10.95(A) 15.45 - 28.11 ml/(min* mmHg) VYAIRE PFT DLCOSINGLEBREATH PRED 21.21 VYAIRE PFT DLCOSINGLEBREATH LLN 15.45 VYAIRE PFT DLCOSINGLEBREATH Z-SCORE -3.21 VYAIRE PFT DLCOSINGLEBREATH % PRED 51.6 % VYAIRE PFT DLCOSINGLEBREATH PREDUNM [facility] Stanojevic TLCO GLI (2019) VYAIRE PFT DLCOSINGLEBREATH Z-SCORE -3.21 12/03/2024 3:42 PM EDT VYAIRE PFT OJIGWO1EUX 3.21 3.00 - 5.28 ml/(min* mmHg*L) VYAIRE PFT DLCOVAPRED 4.09 VYAIRE PFT DLCOVALLN 3.00 VYAIRE PFT DLCOVAZSCORE -1.31 VYAIRE PFT DLCOVA%PRED 78.5 % VYAIRE PFT DLCOVAPREDAUT St[facility] TLCO GLI (2019) VYAIRE PFT DLCOVAZSCORE -1.31 12/03/2024 3:42 PM EDT VYAIRE PFT TRYXVGJPAMASJB2ISP 3.41(A) 4.19 - 6.32 L VYAIRE PFT VASINGLEBREATH PRED 5.22 VYAIRE PFT VASINGLEBREATH LLN 4.19 VYAIRE PFT VASINGLEBREATH Z-SCORE -3.00 VYAIRE PFT VASINGLEBREATH % PRED 65.4 % VYAIRE PFT VASINGLEBREATH PREDUNM [facility] Stanojevic TLCO GLI (2019) VYAIRE PFT VASINGLEBREATH Z-SCORE -3.00 12/03/2024 3:42 PM EDT VYAIRE PFT SAXDPJBZTSWMMQQ8VTV 2.06 1.99 - 3.64 L VYAIRE PFT [...] % PRED 60.2 % VYAIRE PFT TLCSINGLEBREATH PREDPhaneuf Hospital Lung volumes GLI (2019)__ VYAIRE PFT PNM0IGY 4.81 4.61 - 7.17 L VYAIRE PFT TLCPRED 5.88 VYAIRE PFT TLCLLN 4.61 VYAIRE PFT TLCULN 7.17 VYAIRE PFT TLCZSCORE -1.38 VYAIRE PFT TLC%PRED 81.9 % VYAIRE PFT TLCPREDPhaneuf Hospital Lung volumes GLI (2019)__ VYAIRE PFT [...] VYAIRE PFT IC%PRED 41.7 % VYAIRE PFT ICPREDAUTSam[facility] Lung volumes GLI (2019)__ VYAIRE PFT EFGUZWRI0ASC 3.75 2.20 - 4.35 L VYAIRE PFT FRCPLETH PRED 3.16 VYAIRE PFT FRCPLETH LLN 2.20 VYAIRE PFT FRCPLETH ULN 4.35 VYAIRE PFT FRCPLETH Z-SCORE 0.86 VYAIRE PFT FRCPLETH % PRED 118.8 % VYAIRE PFT FRCPLETH PREDPhaneuf Hospital Lung volumes GLI (2019)__ VYAIRE PFT OOD4TAO 0.99 0.27 - 1.92 L VYAIRE PFT [...] Nguyễn Lung volumes GLI (2019)__ VYAIRE PFT RV%LCG1RDB 57.25(A) 25.79 - 51.08 % VYAIRE PFT [...] underwent pulmonary function testing today at the [facility]. The patient underwent spirometry, lung [...] documented as of this encounter Care Teams Brim And Crown Presser Relationship Specialty Start Date End Date Damian Saini MD [address] [facility] [place] [address] PCP - General 09/12/20 documented as of this encounter
--- OUTSIDE RECORDS SUMMARY | 2024-12-03 15:00 | XMS_ITS | Encounter Summary ---
Author Organization Healthcare Address [address] [place] [address] Care Team Providers Care Technology Coordinator Name Role Phone Damian Saini MD Primary Care Provider [phone] Reason for Referral * Consultation (Routine) - Authorized Specialty Diagnoses / Procedures Referred By Marco Antonio lee Referred To Contact Diagnoses Bronchiectasis without complication (CMS/HCC) Nikko Morfin MD [address] [address] Phone: tel: fax: Referral ID Status Reason Start Date Expiration Date V isits Requested Visits Authorized [id number] Authorized 12/03/2024 06/04/2026 1 1 Reason for Visit * Reason Comments Follow-up * Consultation (Routine) - Closed Specialty Diagnoses / Procedures Referred By Marco Antonio lee Referred To Contact Diagnoses Bronchiectasis without complication (CMS/HCC) Nikko Morfin MD [address] [address] Phone: tel: fax: Referral ID Status Reason Start Date Expiration Date Visits Re quested Visits Authorized [id number] Closed 08/30/2024 03/01/2026 1 1 Encounter Details Date Type Department Care Team (Latest Contact Info) Description 12/03/2024 3:00 PM EDT Office Visit [facility] [address] [place] [address] Nikko Morfin MD [address] [place] [address] Bronchiectasis without complication (CMS/HCC) (Primary [...] any time in the past 12 m [facility], were you homeless or living in a residential (including now)? No 08/02/2024 Utilities Answer Date Recorded In the past 12 months has th e [employer], gas, oil, or water [employer] threatened to shut off services in your [...] Influenza, high-dose, quadrivalent 05/23/2023 Moderna COVID-19 Vaccine (Car Distributor) 12+ years 06/11/2020, 07/09/2020, 03/11/2021 Pneumococcal 20-kel [...] MM CCP, RF, MICHAEL, SSA, SSB normal TIM 1:160, speckled Aspergillus IgE negative CF negative [...] recurrent aspiration - sputum AFB x3 - [facility] - sputum gram stain and culture -[facility] - CF sputum today - flutter valve [...] Info) Description 12/13/2024 12:40 PM EDT Appointment [facility] [address] [place] [address] 12/13/2024 2:45 PM EDT Clinical Support [facility] Multidisciplinary Oncology Clinic [address] [place] [id number] 12/13/2024 3:00 PM EDT Office Visit [facility] [address] [place] [phone] Nia Johnson APRN [address] [facility] [address] [place] [address] 12/21/2024 2:30 PM EDT Office Visit [facility] [address] [facility], [address] [place] [phone] Rishi Deluca, MAURICIO [address] [facility] [address] [place] [address] 03/11/2025 11:40 AM EST Office Visit [facility] [place] [address] [facility], [address] [place] [address] Nikko Morfin MD [address] [place] [address] Pending Results Name Type Priority Associated Diagnoses Date /Time Cystic Fibrosis Respiratory Culture and Gram Stain Microbiology Routine Bronchiectasis without complication (CMS/HCC) 12/03/2024 3:43 PM EDT Scheduled Orders Name Type Priority Associated Diagnoses Orde r Schedule Respiratory Culture and Gram Stain Microbiology Routine Bronchiectasis without complication (CMS/HCC) [...] 12/03/2024 3:43 PM EDT Bronchiectasis without complication (CMS/HCC) documented in this encounter Visit Diagnoses Diagnosis [...] documented as of this encounter Care Teams Technology Coordinator Relationship Specialty Start Date End Date Damian Saini MD [address] [facility] [place] [address] PCP - General 09/12/20 documented as of this encounter
--- OUTSIDE RECORDS SUMMARY | 2024-12-09 13:17 | XMS_ITS | Encounter Summary ---
Author Organization [facility] ystem Address [address] [place] [id number] Care Team Providers Care Product Introduction Manager Name Role Phone Damian Saini MD Primary Care Provider + Encounter Details Date Type Department Care Team (Late st Contact Info) Description 07/11/2024 Results Follow-Up [facility] [address] [facility] [place] [phone] Damian Saini MD 210 [facility] [place] [address] Social History Tobacco Use Types [...] on filedocumented in this encounter Care Teams Product Introduction Manager Relationship Specialty Start Date End Date Damian Saini MD [address] [place] [address] PCP - General Family Medicine 05/23/23 documented as of this encounter
--- OUTSIDE RECORDS SUMMARY | 2024-12-09 13:17 | XMS_ITS | Encounter Summary ---
Author Organization Healthcare Address [address] [place] [address] Care Team Providers Care E/M Engineer Name Role Phone Damian Saini MD Primary Care Provider [phone] Encounter Details Date Type Department Care Team (Late st Contact Info) Description 11/23/2024 Telephone [facility] [address] [place] [address] None, None [address] [place], [place] [id number] Social History Tobacco Use Types Packs/Day Years [...] any time in the past [address] [facility], were you homeless or living in a care home (including now)? No 08/02/2024 Utilities Answer [...] Info) Description 12/13/2024 12:40 PM EDT Appointment [facility] [address], 2nd [place] [address] 12/13/2024 2:45 PM EDT Clinical Support [facility] [address] [place] [address] 12/13/2024 3:00 PM EDT Office Visit [facility] [address] [place] [address] Nia Johnson, SALES DEPARTMENT CLERK 800 [facility] [address] [place] [address] 12/21/2024 2:30 PM EDT Office Visit Pav CC Head, Neck & Respiratory [address] [facility], 2nd [place] [address] Rishi Deluca, PA [address] [place] [address] 03/11/2025 11:40 AM EST Office Visit Professional [facility] [address] [facility], [address] [place] [address] Nikko Morfin MD [address] [facility] [address] Mo [address] [place] [address] documented as of this encounter [...] documented as of this encounter Care Teams E/M Engineer Relationship Specialty Start Date End Date Damian Saini MD [address] [place] [address] PCP - General 09/12/20 documented as of this encounter
--- OUTSIDE RECORDS SUMMARY | 2024-12-09 13:17 | XMS_ITS | Encounter Summary ---
Author Organization Healthcare Address [address] [place] [address] Care Team Providers Care Sweat Band Separator Name Role Phone Damian Saini MD Primary Care Provider [phone] Encounter Details Date Type Department Care Team ([facility] st Contact Info) Description 10/26/2024 Telephone [facility] [address], [address]nd [place] [address] Nikko Morfin MD [address] [facility] 3rd Dc [address] [place] [address] Social History Tobacco Use Types [...] any time in the past 12 m [facility], were you homeless or living in a senior care (including now)? No 08/02/2024 Utilities Answer Date [...] sureif he needs one Best contact number: [phone] Optimal time of day to reach caller: ANYTIME Additional comments/information from caller: None Note: Please do not reply to this message. Follow-up communication and further actions as a result of this message need to be communicated with the patient directly, if the patient is not active onMyChart. If the patient is active on MyChart, they will receive notification of the communication/outcome via Disability Care Giverst. documented in this encounter Plan of Treatment Upcoming Encounters Date Type Department Care Team ([facility] Contact Info) Description 12/13/2024 12:40 PM EDT Appointment [facility] CT [address], 2nd [place] [address] 12/13/2024 2:45 PM EDT Clinical Support [facility] [address] [place] [address] 12/13/2024 3:00 PM EDT Office Visit [facility] [address] [place] [address] Nia Johnson, RN GYNECOLOGY 800 [facility] [address] [facility] [address] [place] [address] 12/21/2024 2:30 PM EDT Office Visit Pav CC Head, Neck & Respiratory [address] [facility], 2nd [place] [address] Rishi Deluca, PA [address] [place] [address] 03/11/2025 11:40 AM EST [facility] Visit [facility] [address] [facility], [address] [place] [address] Nikko Morfin MD [address] [place] [address] documented as of this encounter Visit Diagnoses [...] documented as of this encounter Care Teams Sweat Band Separator Relationship Specialty Start Date End Date Damian Saini MD [address] [place] [address] PCP - General 09/12/20 documented as of this encounter
--- OUTSIDE RECORDS SUMMARY | 2024-12-09 13:17 | XMS_ITS | Encounter Summary ---
Author Organization [facility] ystem Address [address] [place] [id number] Care Team Providers Care Shell Molding Roller Blast Operator Name Role Phone Damian Saini MD Primary Care Provider + Encounter Details Date Type Department Care Team (Late st Contact Info) Description 07/12/2024 Results Follow-Up [facility] [address] [facility] [place] [phone] Damian Saini MD 210 [facility] [place] [address] Social History Tobacco Use Types [...] on filedocumented in this encounter Care Teams Shell Molding Roller Blast Operator Relationship Specialty Start Date End Date Damian Saini MD [address] [place] [address] PCP - General Family Medicine 05/23/23 documented as of this encounter
--- OUTSIDE RECORDS SUMMARY | 2024-12-09 13:17 | XMS_ITS | Encounter Summary ---
Author Organization Healthcare Address [address] [place] [address] Care Team Providers Care Sr. Unix System Administrator Name Role Phone Damian Saini MD Primary Care Provider [phone] Encounter Details Date Type Department Care Team ([facility] Contact Info) Description 11/28/2024 Telephone Pav CC Head, Neck & Respiratory [address], 2nd [place] [address] Rishi Deluca, PA [address] [place] [address] Social History Tobacco Use Types [...] any time in the past 12 m [facility], were you homeless or living in a long term (including now)? No 08/02/2024 Utilities Answer Date [...] optimal time of day to reach caller:Ralph [phone] Note: Please do not reply to this message. Follow-up communication and further actions as a result of this message need to be communicated with the patient directly, if the patient is not active onMyChart. If the patient is active on MyChart, they will receive notification of the communication/outcome via Nymirum. documented in this encounter Plan of Treatment Upcoming Encounters Date Type Department Care Team ([facility] st Contact Info) Description 12/13/2024 12:40 PM EDT Appointment [facility] CT [address], 2nd [place] [address] 12/13/2024 2:45 PM EDT Clinical Support [facility] [address] [place] [address] 12/13/2024 3:00 PM EDT Office Visit [facility] [address] [place] [address] Nia Johnson R, LOOM CHANGER 800 [facility] [address] [place] [address] 12/21/2024 2:30 PM EDT Office Visit Pav CC Head, Neck & Respiratory [address] [facility], 2nd [place] [address] Rishi Deluca, PA [address] [facility] [address] [place] [address] 03/11/2025 11:40 AM EST Office Visit [facility] [address] [facility], [address] [place] [address] Nikko Morfin MD [address] [place] [address] documented as of this encounter [...] documented as of this encounter Care Teams Sr. Unix System Administrator Relationship Specialty Start Date End Date Damian Saini MD [address] [place] [address] PCP - General 09/12/20 documented as of this encounter
--- OUTSIDE RECORDS SUMMARY | 2024-12-09 13:17 | XMS_ITS | Encounter Summary ---
Author Organization Healthcare Address [address] [place] [address] Care Team Providers Care Asset Liability Analyst Name Role Phone Damian Saini MD Primary Care Provider [phone] Encounter Details Date Type Department Care Team [...] time in the past 12 m [facility], were you homeless or living in a custodial (including now)? No 08/02/2024 Utilities Answer Date Recorded In the past 12 months has th e [employer], gas, oil, or water company threatened to [...] Info) Description 12/13/2024 12:40 PM EDT Appointment [facility] [address] [facility] 2nd [place] [address] 12/13/2024 2:45 PM EDT Clinical Support [facility] [address] [place] [address] 12/13/2024 3:00 PM EDT Office Visit [facility] [address] [place] [address] Nia Johnson, MACHINE DYER 800 [facility] [address] [place] [address] 12/21/2024 2:30 PM EDT Office Visit Pav CC Head, Neck & Respiratory [address] [facility], 2nd [place] [address] Rishi Deluca, PA [address] [place] [address] 03/11/2025 11:40 AM EST Office Visit Professional [facility] [address] [facility], [address] [place] [address] Nikko Morfin MD [address] [facility] 3rd [address] [place] [address] documented as of this encounter [...] documented as of this encounter Care Teams Asset Liability Analyst Relationship Specialty Start Date End Date Damian Saini MD [address] [place] [address] PCP - General 09/12/20 documented as of this encounter
--- OUTSIDE RECORDS SUMMARY | 2024-12-09 13:17 | XMS_ITS | Clinical Summary ---
Author Organization [facility] yste Address [address] [place] [address] Care Team Providers Care Cfo Name Role Phone Damian Saini MD Primary [...] Description 09/20/2024 12:15 PM EDT Office Visit [facility] 210 [place] [address] Damian Saini MD Contusion of [...] 1206/2015 HEPATITIS C SCREENING Completed 08/03/2024 Insurance [facility] CR[employer] BLUE SHIELD PPO Care Teams Cfo Relationship Specialty Start Date End Date Damian Saini MD [address] [facility] [address] [address] PCP - General Family Medicine 05/23/23
--- OUTSIDE RECORDS SUMMARY | 2024-12-09 13:17 | XMS_ITS ---
Author Organization Healthcare Address [address] [place] [address] Care Team Providers Care Straight Slicing Machine Operator Name Role Phone Damian Saini MD Primary Care Provider [phone] Active Problems Problem Noted Date Diagnosed Date [...]
--- OUTSIDE RECORDS SUMMARY | 2024-12-09 13:17 | XMS_ITS | Encounter Summary ---
Author Organization Healthcare Address [address] [place] [address] Care Team Providers Care Group Dynamics Instructor Name Role Phone Damian Saini MD Primary Care Provider [phone] Reason for Visit * Reason Onset Date Comments Med Refill 12/06/2024 Encounter Details Date Type Department Care Team (Late st Contact Info) Description 12/06/2024 Refill [place] [facility] Medicine Specialties [address], [address] [place] [address] iNkko Morfin MD [address] [place] [address] Bronchiectasis without complication (CMS/HCC) (Primary Dx); Cough, unspecified type; Fibrotic lung diseases (CMS/HCC) Social History Tobacco Use Types Packs/Day [...] any time in the past 12 m [facility], were you homeless or living in a jail (including now)? No 08/02/2024 Utilities Answer Date Recorded In the past 12 months has th e [employer], gas, oil, or water [facility] threatened to shut off services in your [...] Info) Description 12/13/2024 12:40 PM EDT Appointment [facility] [address], 2nd [place] [address] 12/13/2024 2:45 PM EDT Clinical Support [facility] [address] [place] [address] 12/13/2024 3:00 PM EDT Office Visit [facility] [address] [place] [address] Nia Johnson, HEALTH INFORMATION ASSISTANT 800 [facility] [address] [place] [address] 12/21/2024 2:30 PM EDT Office Visit Pav CC Head, Neck & Respiratory [address] [facility], 2nd [place] [address] Rishi Deluca, PA [address] [place] [address] 03/11/2025 11:40 AM EST Office Visit Professional [email or web address] Special[facility] [address] [facility], [address] [place] [address] Nikko Morfin MD [address] [facility] [address] [place] [address] documented as of this encounter Visit Diagnoses Diagnosis Bronchiectasis without complication (CMS/HCC)- Primary Cough, unspecified type 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
--- OUTSIDE RECORDS SUMMARY | 2024-12-09 13:17 | XMS_ITS | Clinical Summary ---
Author Organization Healthcare Address [address] [place] [address] Care Team Providers Care Rf Test Technician Name Role Phone Damian Saini MD Primary Care Provider [phone] Allergies Active Allergy Reactions Criticality Noted Date [...] sodium chloride 7 % nebulizer solution nebulizer solutionIndication s:Bronchiectasis without complication (CMS/HCC),Cough, unspecified type,Fibrotic lung diseases (CMS/HCC) Take 4 mL by nebulization 2 times a day as needed for cough. 750 mL 12 12/07/19 25 Active sodium chloride 7 % nebulizer solution nebulizer solution Take 4 mL by nebulization 2 times a day as needed for cough. 750 mL 12 12/04/19 25 025 Discontin ued(Reord er) Active Problems Problem Noted Date Diagnosed Date Empyema 07/22/2024 Squamous cell carcinoma of head and neck 025 PEG (percutaneous endoscopic gastrostomy) status 07/22/2024 Pneumonia of both lungs due to infectious organi sm 07/22/2024 Acute hypoxemic respiratory failure 07/20/2024 Ringing in the ears 01/19/2024 Left rib fracture 11/08/2023 Dysphagia 04/29/2017 Cancer Sinusitis Encounters Date Type Department Care Team Description 12/06/2024 Refill [facility] Medicine Specialties [address] [place] [address] Nikko Morfin MD Bronchiectasis without complication ([facility]/HCC) (Primary Dx); Cough, unspecified type; Fibrotic lung diseases (CMS/HCC) 12/03/2024 3:00 PM EDT Office Visit [facility] [address], [address] [place] [address] Nikko Morfin MD Bronchiectasis without complication ([facility]/HCC) (Primary Dx); Cough, unspecified type; Recurrent aspiration pneumonitis 12/03/2024 1:30 PM EDT Ancillary Procedure [facility] [address], [address] [place] [address] Bronchiectasis without complication ([facility]/HCC) 12/03/2024 Travel 11/28/2024 Telephone [facility] [address] [facility] 2nd [place] [address] Rishi Deluca PA 11/23/2024 Telephone [facility] Adult Dentistry [address] [place] [address] None, None 10/26/2024 Telephone [facility] Medicine Specialties [address], [address]nd [place] [address] Nikko Morfin MD 10/02/2024 Telephone [facility] [address] [place] [address] Nia Johnson, ANA LUISA from Last 3 Months Immunizations Immunization Administration Dates Next Due Influenza, high-dose, quadrivalent 05/23/2023 Pneumococcal 20-kel Conj Vaccine 01/19/2024 Pneumococcal, Unspecified 04/02/2016 Rsv, Bivalent, Protein Subun it Rsvpref, Diluent Reconstituted, 0.5mL, PF 11/19/2024 TD (adult), 2 Lf tetanus tox oid, preservative free, adsorbed 07/03/1996 Zoster, Recombinant 11/19/2024 Family History Medical History Relation Name Comments Diabetes Brother 1 Ally Diabetes Brother 2 nina No Known Problems Father No Known Problems [...] the money to buy more. Never true 04/03/20 25 Within the past 12 months, t [...] time in the past 12 m [facility], were you homeless or living in [...] Info) Description 12/13/2024 12:40 PM EDT Appointment [facility] [address]nd [place] [address] 12/13/2024 2:45 PM EDT Clinical Support [facility] [address] [place] [address] 12/13/2024 3:00 PM EDT Office Visit [facility] [address] [place] [address] Nia Johnson R, LINEN ROOM HOUSEPERSON [address] [facility] [address] [place] [address] 12/21/2024 2:30 PM EDT Office Visit [facility] [address] [facility], 2nd [place] [address] Rishi Deluca S, PA [address] [place] [address] 03/11/2025 11:40 AM EST Office Visit [facility] [address], [address] [place] [address] Nikko Morfin MD [address] [place] [address] Health Maintenance Due Date Last Done Comments [facility]-Infant/Child/Adol SDOH Screenings 1949 CT Colonography 1994 Colonoscopy 1994 FIT-DNA 1994 FIT 1994 FOBT 1994 Sigmoidoscopy 1994 [facility]-Colorectal Cancer Screening 1994 [facility]-DTaP,Tdap,and Td Vaccine s (1 - Tdap) 07/04/1996 07/03/1996 [id number] Vaccine ( season) 2024 03/11/2021, 07/09/2020, 06/11/2020 [facility]-Bone Density [...] Pulmonary function testing (12/03/2024 3:42 PM EDT) [facility] Signature MHO0XZG 2.04 1.99 - 3.64 L VYAIRE PFT FVC PRED 2.81 VYAIRE PFT FVC LLN 1.99 VYAIRE PFT FVCPREZSCORE -1.54 VYAIRE PFT FVCPRE%PRED 73 % % VYAIRE PFT FVC PREDAt[facility] Clevelandr [facility] (2011) VYAIRE PFT FVC Z-SCORE -1.54 VYAIRE PFT FEV1 PRE 1.43(A) 1.44 - 2.80 L VYAIRE PFT FEV1 PRED 2.15 VYAIRE PFT FEV1 LLN 1.44 VYAIRE PFT ACD4HVWDUCMDJ -1.67 VYAIRE PFT FEV1_Pre%Pred 66 % % VYAIRE PFT FEV1 PREDAt[facility] Health Clevelandr [facility] (2011) VYAIRE PFT FEV1 Z-SCORE -1.67 VYAIRE PFT FEV1/FVC PRE 70.10 62.93 - 89.29 % VYAIRE PFT SQM2XTFHBOJ 77 VYAIRE PFT FQH5ANZLNI 63 VYAIRE PFT BQF9DHBNGNIXOXDJ -0.82 VYAIRE PFT NRQ4ISLPFO%PRED 91 % % VYAIRE PFT [id number] [facility] (2011) VYAIRE PFT CCC3CNQCQOOKN -1 VYAIRE PFT UWS71-49% PRE 0.89 0.54 - 3.41 L/s VYAIRE PFT YFE45-64%_Pred 1.67 VYAIRE PFT ZXL2602%LLN 0.54 VYAIRE PFT KAS4088%PREZSCORE -1.03 VYAIRE PFT CVG2640%PRE%PRED 54 % % VYAIRE PFT NMV0065%PREDSAINT MONICA'S HOMEOPNET Technologies, Inc.jer [facility] (2011) VYAIRE PFT PEF PRE 3.99(A) 4.25 - 8.75 L/s VYAIRE PFT PEF PRED 6.50 VYAIRE PFT PEF LLN 4.25 VYAIRE PFT PEFPREZSCORE -1.83 VYAIRE PFT PEFPRE%PRED 61 % % VYAIRE PFT PEF PREDAUT NHANES III (1998) VYAIRE PFT SAGIWPYYBMAAPCMH2OI E 10.95(A) 15.45 - 28.11 ml/(min* mmHg) VYAIRE PFT DLCOSINGLEBREATH PRED 21.21 VYAIRE PFT DLCOSINGLEBREATH LLN 15.45 VYAIRE PFT DLCOSINGLEBREATH Z-SCORE -3.21 VYAIRE PFT DLCOSINGLEBREATH % PRED 51.6 % VYAIRE PFT DLCOSINGLEBREATH PREDPRESBY[facility] Stanojevic TLCO GLI (2019) VYAIRE PFT DLCOSINGLEBREATH Z-SCORE -3.21 12/03/2024 3:42 PM EDT VYAIRE PFT VLPWWC2MJX 3.21 3.00 - 5.28 ml/(min* mmHg*L) VYAIRE PFT DLCOVAPRED 4.09 VYAIRE PFT DLCOVALLN 3.00 VYAIRE PFT DLCOVAZSCORE -1.31 VYAIRE PFT DLCOVA%PRED 78.5 % VYAIRE PFT DLCOVAPREDAUTFitzgibbon Hospital TLCO GLI (2019) VYAIRE PFT DLCOVAZSCORE -1.31 12/03/2024 3:42 PM EDT VYAIRE PFT OQKTMGBOUANAQD7YYS 3.41(A) 4.19 - 6.32 L VYAIRE PFT VASINGLEBREATH PRED 5.22 VYAIRE PFT VASINGLEBREATH LLN 4.19 VYAIRE PFT VASINGLEBREATH Z-SCORE -3.00 VYAIRE PFT VASINGLEBREATH % PRED 65.4 % VYAIRE PFT VASINGLEBREATH PREDPRESBYTERIAN HOSPITAL [facility] TLCO GLI (2019) VYAIRE PFT VASINGLEBREATH Z-SCORE -3.00 12/03/2024 3:42 PM EDT VYAIRE PFT VEZWWXNHCRWTGHH0AVF 2.06 1.99 - 3.64 L VYAIRE PFT IVCSINGLEBREATH PRED 2.81 VYAIRE PFT IVCSINGLEBREATH LLN 1.99 VYAIRE PFT IVCSINGLEBREATH Z-SCORE -1.51 VYAIRE PFT IVCSINGLEBREATH % PRED 73.3 % VYAIRE PFT IVCSINGLEBREATH PREDAUTMESILLA VALLEY HOSPITAL_[facility] GLI (2011) VYAIRE PFT WILLIAM% VCMAX PRE 94.82 % VYAIRE PFT TLC SB PRE 3.54(A) 4.61 - 7.17 L VYAIRE PFT TLCSINGLEBREATH PRED 5.88 VYAIRE PFT TLCSINGLEBREATH LLN 4.61 VYAIRE PFT TLCSINGLEBREATH Z-SCORE -3.05 VYAIRE PFT TLCSINGLEBREATH % PRED 60.2 % VYAIRE PFT TLCSINGLEBREATH PREDAUTHarrison Community Hospital Lung volumes GLI (2019)__ VYAIRE PFT ZRW2EHQ 4.81 4.61 - 7.17 L VYAIRE PFT TLCPRED 5.88 VYAIRE PFT TLCLLN 4.61 VYAIRE PFT TLCULN 7.17 VYAIRE PFT TLCZSCORE -1.38 VYAIRE PFT TLC%PRED 81.9 % VYAIRE PFT TLCPREDSaint Elizabeth's Medical Center Lung volumes GLI (2019)__ VYAIRE PFT VC0PRE 2.06 1.99 - 3.64 L VYAIRE PFT VCPRED 2.81 VYAIRE PFT VCLLN 1.99 VYAIRE PFT VCULN 3.64 VYAIRE PFT VCZSCORE -1.51 VYAIRE PFT VC%PRED 73.3 % VYAIRE PFT VCPREDAUTMESILLA VALLEY HOSPITAL_[facility] GLI (2011) VYAIRE PFT IC0PRE 1.06(A) 1.77 - 3.30 L VYAIRE PFT ICPRED 2.55 VYAIRE PFT ICLLN 1.77 VYAIRE PFT ICULN 3.30 VYAIRE PFT IC Z-SCORE -3.04 VYAIRE PFT IC%PRED 41.7 % VYAIRE PFT ICPREDAUTHarrison Community Hospital Lung volumes GLI (2019)__ VYAIRE PFT OCEUSTZF9TOJ 3.75 2.20 - 4.35 L VYAIRE PFT FRCPLETH PRED 3.16 VYAIRE PFT FRCPLETH LLN 2.20 VYAIRE PFT FRCPLETH ULN 4.35 VYAIRE PFT FRCPLETH Z-SCORE 0.86 VYAIRE PFT FRCPLETH % PRED 118.8 % VYAIRE PFT FRCPLETH PREDAUTH [facility] Lung volumes GLI (2019)__ VYAIRE PFT NQW0HWS 0.99 0.27 - 1.92 L VYAIRE PFT [...] Nguy[facility]n Lung volumes GLI (2019)__ VYAIRE PFT RV%AWT6PMS 57.25(A) 25.79 - 51.08 % VYAIRE PFT RV%TLCPRED 38 VYAIRE PFT RV%TLCLLN 26 VYAIRE PFT RV%TLCULN 51 VYAIRE PFT RV%TLCZSCORE 2.41 VYAIRE PFT RV%TLC%PRED 150.1 % VYAIRE PFT RV%TLCPREDAUT [facility] Lung volumes GLI (2019)__ VYAIRE PFT Anatomical Region Laterality Modality PFT 12/03/2024 11:3 8 AM EDT Narrative 12/03/2024 9:59 PM EDT Pulmonary Function Testing Report Juan Luis Bah underwent pulmonary function testing today at the [facility]. The patient underwent spirometry, lung [...] Antibody Negative Negative 08/03/2024 8:56 AM EDT [facility] Blood Venous blood specimen / Unknown Venipuncture / Unknown 08/03/2024 7:56 AM EDT 08/03/2024 8:16 AM EDT Chetan Jose MD LAB BLOOD ORDERABLES Final Re sult [facility] [address] [place] [address] * (ABNORMAL) Hemoglobin A1c (07/26/2024 1:22 AM EDT) Hemoglobin A1c 5.9(H) <5.7 % 07/26/2024 11:08 AM EDT [facility] Blood Venous blood specimen / Unknown Venipuncture / Unknown 07/26/2024 1:22 AM EDT 07/26/2024 1:45 AM EDT Narrative [facility] - 07/26/2024 11:08 AM EDT HA1C Interpretive Data: Diagnosis of Diabetes: Diabetic > or = 6.5% Pre-diabetic 5.7 to 6.4% Non-diabetic < or = 5.6% Glycemic Targets for Type I and Type II Diabetics: Non- Adults <7.0% Adults <6.0% Children and Adolescents <7.5% Source: [place] Diabetes [employer]. Standards of medical care in diabetes,2017. Diabetes Care.2017:40 (suppl 1):S1-S135. HbA1c assay performed by an ion-exchange chromatography method that is certified traceable to the DCCT. Deloris San DO LAB BLOOD ORDERABLES Final Result [facility] [address] [place] [address] * Dexa Bone Density (02/24/2023 12:42 PM [...] the non-dominant forearm was performed using a [email or web address] Horizon A Dual- energy X-ray Absorptiometry (DXA) [...] the non-dominant forearm was performed using a Cardiva Medicalrizon A Dual- energy X-ray Absorptiometry (DXA) scanner (software [id number]). COMPARISON/CORRELATION: No comparison. No recent correlative imaging. 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
== END 2024-12-09 23:59 | disposition home or self-care (01) ==
LOC: LAB.DROPOF 13:16
PROVIDERS: PCP Family Medicine; Visit Provider Student in an Organized Health Care Education/Training Program
DX: J47.9 Bronchiectasis, uncomplicated (principal)

== ENCOUNTER 2024-12-11 09:02 | Outpatient (CLI) | payer BC, SELFPAY ==
--- OUTSIDE RECORDS SUMMARY | 2024-12-03 13:30 | XMS_ITS | Encounter Summary ---
Author Organization Healthcare Address [address] [place] [address] Care Team Providers Care Salesperson Flowers Name Role Phone Damian Saini MD Primary Care Provider [phone] Encounter Details Date Type Department Care Team (Latest Contact Info) Description 12/03/2024 1:30 PM EDT Ancillary Procedure Professional [facility] [address], [address] [place] [address] Bronchiectasis without complication (CMS/HCC) Social History Tobacco Use Types Packs/Day Years Used Date Smoking Tobacco: Never Passive Smoke Exposure: Past Smokeless Tobacco: Never Alcohol Use Standard Drinks/Week Comments Never 0 (1 standard drink = 0.6 oz pur e alcohol) Humiliation, Afraid, Rape, and Kick questionnair e Answer Date Recorded Within the last year, have y ou been afraid of your partner or ex-partner? No 07/25/2024 Within the last year, have y ou been humiliated or emotionally abused in other ways by your partner or ex-partner? No Within the last year, have y ou been kicked, hit, slapped, or otherwise physically hurt by your partner or ex-partner? No 07/25/2024 Within the last year, have y ou been raped or forced to have any kind of sexual activity by your partner or ex-partner? No 07/25/2024 PHQ-2 Answer Date Recorded Patient Health Questionnaire-2 Score 0 12/03/2024 Hunger Vital Sign Answer Date Recorded Within the past 12 months, y ou worried that your food would run out before you got the money to buy more. Never true 08/03/19 25 Within the past 12 months, t he food you bought just didn't last and you didn't have money to get more. Never true 08/02/2024 PRAPARE - Transportation Answer Date Re corded In the past 12 months, has l ack of transportation kept you from medical appointments or from getting medications? No 06/2024 In the past 12 months, has l ack of transportation kept you from meetings, work, or from getting things needed for daily living? No 08/02/2024 PHQ-9 Answer Date Recorded Patient Health Questionnaire-9 Score 0 08/31/2024 Housing Stability Vital Sign Answer Josias e Recorded In the last 12 months, was t here a time when you were not able to pay the mortgage or rent on time? No 08/02/2024 In the past 12 months, how m any times have you moved where you were living? 0 08/02/2024 At any time in the past 12 m [facility], were you homeless or living in a long-term (including now)? No 08/02/2024 Utilities Answer Date Recorded In the past 12 months has th e electric, gas, oil, or water company threatened to shut off services in your home? No 08/02/2024 PHQ-2A Answer Date Recorded Depression Risk 0 11/24/2023 Sex and Gender Information Value Date Recorded Sex Assigned at Not on file Legal Sex Male 7:50 PM EDT Gender Identity Not on file Sexual Orientation Not on file documented as of this encounter Functional Status * Over the past 2 weeks, how often have you been bothered by any of the following problems? Question Answer Date of Assessment Author Little interest or pleasure in doing things Not at all 12/03/2024 12:58 PM EDT Marilou Mackay Feeling down, depressed, or hopeless Not at all 12/03/2024 12:58 PM EDT Marilou Mackay Patient Health Questionnaire -2 Score 0 12/03/2024 12:58 PM EDT Marilou Mackay documented as of this encounter Plan of Treatment Upcoming Encounters Date Type Department Care Team (Late st Contact Info) Description 12/13/2024 12:40 PM EDT Appointment [facility] [address], [address] [place] [address] 12/13/2024 2:45 PM EDT Clinical Support [facility] [address] [place] [address] 12/13/2024 3:00 PM EDT Office Visit [facility] [address] [place] [address] Nia Johnson, SNOW FENCE ERECTOR [address] [facility] [address] [place] [address] 12/21/2024 2:30 PM EDT Office Visit [facility] [address] [facility], [address] [place] [address] Rishi Deluca, PA [address] [place] [address] 03/11/2025 11:40 AM EST Office Visit [facility] [address], [address] [place] [address] Nikko Morfin MD [address] [place] [address] documented as of this encounter Procedures Procedure Name Priority Date/Time Associated Diagnosis Comments HC DIFFUSING CAPACITY - CARBON MONOXIDE DIFFUSING CAPACITY Routine 12/03/2024 3:42 PM EDT Bronchiectasis without complication (CMS/HCC) documented in this encounter Results * (ABNORMAL) Pulmonary function testing (12/03/2024 3:42 PM EDT) VVM5VAO 2.04 1.99 - 3.64 L VYAIRE PFT FVC PRED 2.81 VYAIRE PFT FVC LLN 1.99 VYAIRE PFT FVCPREZSCORE -1.54 VYAIRE PFT FVCPRE%PRED 73 % % VYAIRE PFT FVC PREDAUTH[facility]erson [facility] (2011) VYAIRE PFT FVC Z-SCORE -1.54 VYAIRE PFT FEV1 PRE 1.43(A) 1.44 - 2.80 L VYAIRE PFT FEV1 PRED 2.15 VYAIRE PFT FEV1 LLN 1.44 VYAIRE PFT QEI9JYYVFRAJO -1.67 VYAIRE PFT FEV1_Pre%Pred 66 % % VYAIRE PFT FEV1 PREDAUTHenderson County Community Hospital (2011) VYAIRE PFT FEV1 Z-SCORE -1.67 VYAIRE PFT FEV1/FVC PRE 70.10 62.93 - 89.29 % VYAIRE PFT CIK0HGKZCZR 77 VYAIRE PFT GUD2KITWFI 63 VYAIRE PFT PDV6QUDTKMDIYACL -0.82 VYAIRE PFT QSL2CWUYDC%PRED 91 % % VYAIRE PFT ZCI3ELCKQQEI [facility] (2011) VYAIRE PFT GKQ8PCVYGSHKD -1 VYAIRE PFT ZOI15-72% PRE 0.89 0.54 - 3.41 L/s VYAIRE PFT CMI86-52%_Pred 1.67 VYAIRE PFT ZVG7602%LLN 0.54 VYAIRE PFT DOQ6264%PREZSCORE -1.03 VYAIRE PFT VDJ0665%PRE%PRED 54 % % VYAIRE PFT GOB1872%[facility]ED[facility] (2011) VYAIRE PFT PEF PRE 3.99(A) 4.25 - 8.75 L/s VYAIRE PFT PEF PRED 6.50 VYAIRE PFT PEF LLN 4.25 VYAIRE PFT PEFPREZSCORE -1.83 VYAIRE PFT PEFPRE%PRED 61 % % [facility]YAIRE PFT [facility]F [facility] NH[facility] (1998) VYAIRE PFT TPDZUSAAGTPHLVKH4YK E 10.95(A) 15.45 - 28.11 ml/(min* mmHg) VYAIRE PFT DLCOSINGLEBREATH PRED 21.21 VYAIRE PFT DLCOSINGLEBREATH LLN 15.45 VYAIRE PFT DLCOSINGLEBREATH Z-SCORE -3.21 VYAIRE PFT DLCOSINGLEBREATH % PRED 51.6 % VYAIRE PFT DLCOSINGLEBREATH PREDMIM[facility]ES [facility] Stanojevic TLCO GLI (2019) VYAIRE PFT DLCOSINGLEBREATH Z-SCORE -3.21 12/03/2024 3:42 PM EDT VYAIRE PFT MBGXTZ8VBH 3.21 3.00 - 5.28 ml/(min* mmHg*L) VYAIRE PFT DLCOVAPRED 4.09 VYAIRE PFT DLCOVALLN 3.00 VYAIRE PFT DLCOVAZSCORE -1.31 VYAIRE PFT DLCOVA%PRED 78.5 % VYAIRE PFT DLCOVAPREDAUT Stanojevic TLCO GLI (2019) VYAIRE PFT DLCOVAZSCORE -1.31 12/03/2024 3:42 PM EDT VYAIRE PFT VLCPRFESBNPPRH1MMH 3.41(A) 4.19 - 6.32 L VYAIRE PFT VASINGLEBREATH PRED 5.22 VYAIRE PFT VASINGLEBREATH LLN 4.19 VYAIRE PFT VASINGLEBREATH Z-SCORE -3.00 VYAIRE PFT VASINGLEBREATH % PRED 65.4 % VYAIRE PFT VASINGLEBREATH PREDMIM[facility] Stanojevic TLCO GLI (2019) VYAIRE PFT VASINGLEBREATH Z-SCORE -3.00 12/03/2024 3:42 PM EDT VYAIRE PFT EEDIQOOVHASZVPV7JIR 2.06 1.99 - 3.64 L VYAIRE PFT IVCSINGLEBREATH PRED 2.81 VYAIRE PFT IVCSINGLEBREATH LLN 1.99 VYAIRE PFT IVCSINGLEBREATH Z-SCORE -1.51 VYAIRE PFT IVCSINGLEBREATH % PRED 73.3 % VYAIRE PFT IVCSINGLEBREATH PREDAUT [facility] GLI (2011) VYAIRE PFT WILLIAM% VCMAX PRE 94.82 % VYAIRE PFT TLC SB PRE 3.54(A) 4.61 - 7.17 L VYAIRE PFT TLCSINGLEBREATH PRED 5.88 VYAIRE PFT TLCSINGLEBREATH LLN 4.61 VYAIRE PFT TLCSINGLEBREATH Z-SCORE -3.05 VYAIRE PFT TLCSINGLEBREATH % PRED 60.2 % VYAIRE PFT TLCSINGLEBREATH PREDHolden Hospital Lung volumes GLI (2019)__ VYAIRE PFT QHI2DZK 4.81 4.61 - 7.17 L VYAIRE PFT TLCPRED 5.88 VYAIRE PFT TLCLLN 4.61 VYAIRE PFT TLCULN 7.17 VYAIRE PFT TLCZSCORE -1.38 VYAIRE PFT TLC%PRED 81.9 % [facility]YAIRE PFT TLCPREDHolden Hospital Lung volumes GLI (2019)__ VYAIRE PFT VC0PRE 2.06 1.99 - 3.64 L VYAIRE PFT VCPRED 2.81 VYAIRE PFT VCLLN 1.99 VYAIRE PFT VCULN 3.64 VYAIRE PFT VCZSCORE -1.51 VYAIRE PFT VC%PRED 73.3 % VYAIRE PFT VCPREDAUT [facility] (2011) VYAIRE PFT IC0PRE 1.06(A) 1.77 - 3.30 L VYAIRE PFT ICPRED 2.55 VYAIRE PFT ICLLN 1.77 VYAIRE PFT ICULN 3.30 VYAIRE PFT IC Z-SCORE -3.04 VYAIRE PFT IC%PRED 41.7 % VYAIRE PFT ICPREDAUTPro[facility] Lung volumes GLI (2019)__ VYAIRE PFT MBWUNRKS2EXM 3.75 2.20 - 4.35 L VYAIRE PFT FRCPLETH PRED 3.16 VYAIRE PFT FRCPLETH LLN 2.20 VYAIRE PFT FRCPLETH ULN 4.35 VYAIRE PFT FRCPLETH Z-SCORE 0.86 VYAIRE PFT FRCPLETH % PRED 118.8 % VYAIRE PFT FRCPLETH PREDHolden Hospital Lung volumes GLI (2019)__ VYAIRE PFT NSG8NMI 0.99 0.27 - 1.92 L VYAIRE PFT ERVPRED 0.93 VYAIRE PFT ERVLLN 0.27 VYAIRE PFT ERVULN 1.92 VYAIRE PFT ERV Z-SCORE 0.13 VYAIRE PFT ERV%PRED 106.9 % VYAIRE PFT ERVPREDAUTH [facility] Lung volumes GLI (2019)__ VYAIRE PFT RV0PRE 2.75 1.27 - 3.39 L VYAIRE PFT RVPRED 2.23 VYAIRE PFT RVLLN 1.27 VYAIRE PFT RVULN 3.39 VYAIRE PFT RVZSCORE 0.78 VYAIRE PFT RV%PRED 123.6 % VYAIRE PFT RVPREDAUTH [facility] Lung volumes GLI (2019)__ VYAIRE PFT RV%ETJ6BNN 57.25(A) 25.79 - 51.08 % VYAIRE PFT RV%TLCPRED 38 VYAIRE PFT RV%TLCLLN 26 VYAIRE PFT RV%TLCULN 51 VYAIRE PFT RV%TLCZSCORE 2.41 VYAIRE PFT RV%TLC%PRED 150.1 % VYAIRE PFT RV%TLCPREDAUTH [facility] Lung volumes GLI (2019)__ VYAIRE PFT Anatomical Region Laterality Modality PFT 12/03/2024 11:3 8 AM EDT Narrative 12/03/2024 9:59 PM EDT Pulmonary Function Testing Report Juan Luis Cruz underwent pulmonary function testing today at the [facility]. The patient underwent spirometry, lung volumes by body plethysmography, and diffusion capacity testing. All tests were appropriately administered via ATS/ERS criteria. Spirometry acceptable and repeatable; however, lung volumes not repeatable. Patient reportedly did have some physical difficulty completing test. Interpret with caution. Spirometry: Reduced FEV1 with a normal ratio and normal TLC consistent with a non-specific spirometry pattern. Lung Volumes: Elevated RV/TLC, which is of uncertain clinical significance in the setting of normal spirometry. Diffusion Capacity: Diffusion capacity uncorrected for Hb is moderately reduced. A reduced DLCO with a low VA and low/normal KCO is a pattern that may suggest loss of alveolar capillary structure with loss of lung volume in conditions such as emphysema and ILD. Trend: Compared to previous study dated 04/23/2024, there has been a significant decrease in FEV1, FVC, and DLCO. Nikko Morfin MD PFT ORDERABLES Final Result documented in this encounter Visit Diagnoses Diagnosis Bronchiectasis without complication (CMS/HCC) Head and neck cancer (CMS/HCC)- Primary documented in this encounter Additional Health Concerns Infection Onset Date Last Indicated Resolved Time MRSA 07/20/2024 12/03/2024 Tuberculosis Rule-Out 07/28/2024 07/28/2024 MTB Rule-Out 07/28/2024 07/28/2024 Assessment Noted Time PHQ-9 Depression Total Score: 0 09/01/19 25 1:58 PM EDT A fall risk assessment has been complete d for the patient 12/03/2024 12:58 PM EDT A Body Mass Index follow-up plan has been documented for the patient 12/03/2024 3:48 PM EDT documented as of this encounter Care Teams Salesperson Flowers Relationship Specialty Start Date End Date Damian Saini MD [address] [place] [address] PCP - General 09/12/20 documented as of this encounter
--- OUTSIDE RECORDS SUMMARY | 2024-12-03 15:00 | XMS_ITS | Encounter Summary ---
Author Organization Healthcare Address [address] [place] [address] Care Team Providers Care Fiber Product Cutting Machine Operator Name Role Phone Damian Saini MD Primary Care Provider [phone] Reason for Referral * Consultation (Routine) - Authorized Specialty Diagnoses / Procedures Referred By Marco Antonio lee Referred To Contact Diagnoses Bronchiectasis without complication (CMS/HCC) Nikko Morfin MD [address] [address] Phone: tel: fax: Referral ID Status Reason Start Date Expiration Date V isits Requested Visits Authorized [id number] Authorized 12/03/2024 06/04/2026 1 1 Reason for Visit * Reason Comments Follow-up * Consultation (Routine) - Closed Specialty Diagnoses / Procedures Referred By Marco Antonio lee Referred To Contact Diagnoses Bronchiectasis without complication (CMS/HCC) Nikko Morfin MD [address] [address] Phone: tel: fax: Referral ID Status Reason Start Date Expiration Date Visits Re quested Visits Authorized [id number] Closed 08/30/2024 03/01/2026 1 1 Encounter Details Date Type Department Care Team (Latest Contact Info) Description 12/03/2024 3:00 PM EDT Office Visit Professional [facility] [address] [place] [address] Nikko Morfin MD [address] [place] [address] Bronchiectasis without complication (CMS/HCC) (Primary [...] any time in the past 12 m [facility], were you homeless or living in a assisted (including now)? No 08/02/2024 Utilities Answer Date Recorded In the past 12 months has th e [employer], gas, oil, or water [employer] threatened to shut off services in your [...] Influenza, high-dose, quadrivalent 05/23/2023 Moderna COVID-19 Vaccine (Principal Archaeologist) 12+ years 06/11/2020, 07/09/2020, 03/11/2021 Pneumococcal 20-kel [...] IgE negative CF negative Sputum from [facility] negative for AFB Impression: Bronchiectasis Fibrotic [...] recurrent aspiration - sputum AFB x3 - [facility] - sputum gram stain and culture -[facility] - CF sputum today - flutter valve [...] Info) Description 12/13/2024 12:40 PM EDT Appointment [facility] [address] [place] [address] 12/13/2024 2:45 PM EDT Clinical Support [facility] Multidisciplinary Oncology Clinic [address] [place] [phone] 12/13/2024 3:00 PM EDT Office Visit [facility] [address] [place] [phone] Nia Johnson APRN [address] [facility] [address] [place] [address] 12/21/2024 2:30 PM EDT Office Visit [facility] Head[facility]ck [facility] Respiratory [address] [facility], 2nd [place] [address] Rishi Deluca, MAURICIO [address] [facility] [address] [place] [address] 03/11/2025 11:40 AM EST Office Visit [facility] [place] [address] [facility], [address] [place] [address] Nikko Morfin MD [address] [place] [address] Scheduled Orders Name Type Priority Associated Diagnoses Orde r Schedule Respiratory Culture and Gram Stain Microbiology Routine Bronchiectasis without complication ([facility]/HCC) Expected: 12/03/2024 (Approximate), Expires: 06/06/2026 AFB Culture, [...] 12/03/2024 3:43 PM EDT Bronchiectasis without complication ([facility]) documented in this encounter Results * (ABNORMAL) Cystic Fibrosis Respiratory Culture and Gram Stain (12/03/2024 3:43 PM EDT) Culture Heavy Growth 12/10/2024 3:50 PM EDT [facility] Culture Biotype 1 Methicillin-Resis tant Staphylococcus aureus(AA) CATHI 12/10/2024 3:50 PM EDT [facility] Comment: The organism value for this result has been updated. These results have been appended to the previously preliminary verified report. Edited result: Previously reported as Staphylococcus aureus on 12/05/2024 at 1429 EDT. Staphylococcus aureus has been updated to reportable. Culture Biotype 2 Methicillin-Resis tant Staphylococcus aureus(AA) CATHI 12/10/2024 3:50 PM EDT [facility] Comment: The organism value for this result has been updated. These results have been appended to the previously preliminary verified report. Edited result: Previously reported as Staphylococcus aureus on 12/05/2024 at 1429 EDT. Staphylococcus aureus has been updated to reportable. Culture Achromobacter denitrificans(A) CATHI 12/10/2024 3:50 PM EDT [facility] Comment: This result was determined by MALDI tof Mass spectrometry. This assay was developed and its performance characteristics determined by [facility] as appropriate for clinical purposes. [...] 10 Epithelial cells/LPF(A) 12/10/2024 3:50 PM EDT [facility] Gram Stain Result Greater than 25 WBC/LPF(A) 12/10/2024 3:50 PM EDT [facility] Gram Stain Result Numerous Gram positive cocci in clusters(A) 12/10/2024 3:50 PM EDT [facility] Gram Stain Result Moderate Gram positive rods(A) 12/10/2024 3:50 PM EDT [facility] Gram Stain Result Rare Budding yeast(A) 12/10/2024 3:50 PM EDT [facility] Sputum Topography unknown / Unknown [...] MICROBIOLOGY - GENERAL ORD ERABLES Final Result [facility] [address] [place] [address] documented in this encounter Visit Diagnoses Diagnosis [...] documented as of this encounter Care Teams Fiber Product Cutting Machine Operator Relationship Specialty Start Date End Date Damian Saini MD [address] [place] [address] PCP - General 09/12/20 documented as of this encounter
--- OUTSIDE RECORDS SUMMARY | 2024-12-11 09:06 | XMS_ITS | Encounter Summary ---
Author Organization [facility] ystem Address [address] [place] [id number] Care Team Providers Care Bonsai Culturist Name Role Phone Damian Saini MD Primary Care Provider + Encounter Details Date Type Department Care Team (Late st Contact Info) Description 07/12/2024 Results Follow-Up [facility] FAMILY MEDICINE [address] [facility] [place] [address] Damian Saini MD [address] [facility] [place] [address] Social History Tobacco Use Types [...] on filedocumented in this encounter Care Teams Bonsai Culturist Relationship Specialty Start Date End Date Damian Saini MD [address] [place] [address] PCP - General Family Medicine 05/23/23 documented as of this encounter
--- OUTSIDE RECORDS SUMMARY | 2024-12-11 09:06 | XMS_ITS | Encounter Summary ---
Author Organization [facility] ystem Address [address] [place] [id number] Care Team Providers Care Ethnoarchaeologist Name Role Phone Damian Saini MD Primary Care Provider + Encounter Details Date Type Department Care Team (Late st Contact Info) Description 07/11/2024 Results Follow-Up [facility] [address] [facility] [place] [phone] Damian Saini MD [address] [facility] [place] [address] Social History Tobacco Use Types [...] on filedocumented in this encounter Care Teams Ethnoarchaeologist Relationship Specialty Start Date End Date Damian Saini MD [address] [place] [address] PCP - General Family Medicine 05/23/23 documented as of this encounter
--- OUTSIDE RECORDS SUMMARY | 2024-12-11 09:06 | XMS_ITS | Encounter Summary ---
Author Organization Healthcare Address [address] [place] [address] Care Team Providers Care Raise Driller Name Role Phone Damian Saini MD Primary Care Provider [phone] Reason for Visit * Reason Onset Date Comments Med Refill 12/06/2024 Encounter Details Date Type Department Care Team (Late st Contact Info) Description 12/06/2024 Refill [facility] Medicine Specialties [address], [address]nd [place] [address] Nikko Morfin MD [address] [place] [address] Bronchiectasis without complication (CMS/HCC) (Primary [...] in the past 12 m [facility], were you homeless or living in a retirement (including now)? No 08/02/2024 Utilities Answer Date Recorded In the past 12 months has th e [employer], gas, oil, or water [employer] threatened to shut off services in your [...] Description 12/13/2024 12:40 PM EDT Appointment [facility] [address], [address]nd [place] [address] 12/13/2024 2:45 PM EDT Clinical Support [facility] [address] [place] [address] 12/13/2024 3:00 PM EDT Office Visit [facility] [address] [place] [address] Nia Johnson, SLATE TRIMMER [address] [facility] [address] [place] [address] 12/21/2024 2:30 PM EDT Office Visit [facility] Res[facility] [address] [facility], 2nd [place] [address] Rishi Dleuca, PA [address] [place] [address] 03/11/2025 11:40 AM EST Office Visit [facility] [address] [facility], [address] [place] [address] Nikko Morfin MD [address] [facility] [address] [place] [address] documented as of this encounter [...] documented as of this encounter Care Teams Raise Driller Relationship Specialty Start Date End Date Damian Saini MD [address] [place] [address] PCP - General 09/12/20 documented as of this encounter
--- OUTSIDE RECORDS SUMMARY | 2024-12-11 09:07 | XMS_ITS | Encounter Summary ---
Author Organization Healthcare Address [address] [place] [address] Care Team Providers Care Orthopedic Tech Name Role Phone Damian Saini MD Primary Care Provider [phone] Encounter Details Date Type Department Care Team (Late st Contact Info) Description 11/23/2024 Telephone [place] [facility] [address] [place] [address] None, None [address] [place], [place] [id number] Social History Tobacco Use Types Packs/Day Years [...] in the past 12 m [facility], were you homeless or [...] 12:40 PM EDT Appointment [facility] [address], [address]nd [place] [address] 12/13/2024 2:45 PM EDT Clinical Support [facility] [address] [place] [address] 12/13/2024 3:00 PM EDT Office Visit [facility] [address] [place] [address] Nia Johnson, PRO SHOP ATTENDANT [address] [facility] [address] [place] [address] 12/21/2024 2:30 PM EDT Office Visit [facility] Res[facility] [address] [facility], 2nd [place] [address] Rishi Deluca, PA [address] [place] [address] 03/11/2025 11:40 AM EST Office Visit [facility] [address] [facility], [address] [place] [address] Nikko Morfin MD [address] [facility] [address] [place] [address] documented as of this encounter [...] documented as of this encounter Care Teams Orthopedic Tech Relationship Specialty Start Date End Date Damian Saini MD [address] [place] [address] PCP - General 09/12/20 documented as of this encounter
--- OUTSIDE RECORDS SUMMARY | 2024-12-11 09:07 | XMS_ITS ---
Author Organization Healthcare Address [address] [place] [address] Care Team Providers Care Project Manager Retail Name Role Phone Damian Saini MD Primary Care Provider Active Problems Problem Noted Date Diagnosed Date [...]
--- OUTSIDE RECORDS SUMMARY | 2024-12-11 09:07 | XMS_ITS | Encounter Summary ---
Author Organization Healthcare Address [address] [place] [address] Care Team Providers Care Wire Stripper Name Role Phone Damian Saini MD Primary Care Provider [phone] Encounter Details Date Type Department Care Team ([facility] st Contact Info) Description 10/26/2024 Telephone [place] [facility] Medicine Specialties [address], [address]nd [place] [address] Nikko Morfin MD [address] [facility] [address]c [address] [place] [address] Social History Tobacco Use Types [...] were you homeless or living in a prison (including now)? No 08/02/2024 Utilities Answer Date [...] sureif he needs one Best contact number: [phone] Optimal time of day to reach caller: ANYTIME Additional comments/information from caller: None Note: Please do not reply to this message. Follow-up communication and further actions as a result of this message need to be communicated with the patient directly, if the patient is not active onMyChart. If the patient is active on MyChart, they will receive notification of the communication/outcome via Zimplistict. documented in this encounter Plan of Treatment Upcoming Encounters Date Type Department Care Team ([facility] Contact Info) Description 12/13/2024 12:40 PM EDT Appointment [facility] CT [address]nd [place] [address] 12/13/2024 2:45 PM EDT Clinical Support [facility] [address] [place] [address] 12/13/2024 3:00 PM EDT Office Visit [facility] [address] [place] [address] Nia Johnson, ELECTRICAL PROJECT ENGINEER 800 [facility] [address] [facility] [address] [place] [address] 12/21/2024 2:30 PM EDT Office Visit [facility] [address] [facility], 2nd [place] [address] Rishi Deluca, PA [address] [place] [address] 03/11/2025 11:40 AM EST [facility] [address] [facility], [address] [place] [address] Nikko Morfin MD [address] [place] [address] documented as of this encounter Visit Diagnoses [...] documented as of this encounter Care Teams Wire Stripper Relationship Specialty Start Date End Date Damian Saini MD [address] [place] [address] PCP - General 09/12/20 documented as of this encounter
--- OUTSIDE RECORDS SUMMARY | 2024-12-11 09:07 | XMS_ITS | Encounter Summary ---
Author Organization Healthcare Address [address] [place] [address] Care Team Providers Care Production Sampler Name Role Phone Damian Saini MD Primary Care Provider [phone] Encounter Details Date Type Department Care Team ([facility] Contact Info) Description 11/28/2024 Telephone [facility] Res[facility] [address], [address]nd [place] [address] Rishi Deluca, PA [address] [place] [address] Social History Tobacco Use Types [...] optimal time of day to reach caller:Ralph [phone] Note: Please do not reply to this message. Follow-up communication and further actions as a result of this message need to be communicated with the patient directly, if the patient is not active onMyChart. If the patient is active on MyChart, they will receive notification of the communication/outcome via Property Owl. documented in this encounter Plan of Treatment Upcoming Encounters Date Type Department Care Team ([facility] st Contact Info) Description 12/13/2024 12:40 PM EDT Appointment [facility] CT [address], [address]nd [place] [address] 12/13/2024 2:45 PM EDT Clinical Support [facility] [address] [place] [address] 12/13/2024 3:00 PM EDT Office Visit [facility] [address] [place] [address] Nia Johnson R, INTERMEDIATE CARD TENDER 800 [facility] [address] [place] [address] 12/21/2024 2:30 PM EDT Office Visit [facility] Respiratory [address] [facility], 2nd [place] [address] Rishi Deluca, PA [address] [facility] [address] [place] [address] 03/11/2025 11:40 AM EST Office Visit [facility] [address] [facility], [address] [place] [address] Nikko Morfin MD [address] [place] [address] documented as of this encounter [...] documented as of this encounter Care Teams Production Sampler Relationship Specialty Start Date End Date Damian Saini MD [address] [place] [address] PCP - General 09/12/20 documented as of this encounter
--- OUTSIDE RECORDS SUMMARY | 2024-12-11 09:07 | XMS_ITS | Clinical Summary ---
Author Organization [facility] yste Address [address] [place] [address] Care Team Providers Care Sweetbread Trimmer Name Role Phone Damian Saini MD Primary [...] Description 09/20/2024 12:15 PM EDT Office Visit [facility] FAM[facility] MED[facility] [address] [place] [address] Damian Saini MD Contusion of [...] 1206/2015 HEPATITIS C SCREENING Completed 08/03/2024 Insurance [facility] [employer] BLUE [employer]IELD PPO Care Teams Sweetbread Trimmer Relationship Specialty Start Date End Date Damian Saini MD [address] [facility] [place] [address] PCP - General Family Medicine 05/23/23
--- OUTSIDE RECORDS SUMMARY | 2024-12-11 09:07 | XMS_ITS | Clinical Summary ---
Author Organization Healthcare Address [address] [place] [address] Care Team Providers Care Music Supervisor Name Role Phone Damian Saini MD Primary Care Provider [phone] Allergies Active Allergy Reactions Criticality Noted Date [...] Type Department Care Team Description 12/06/[address] [facility] Medicine Specialties [address] [place] [address] Nikko Morfin MD Bronchiectasis without complication ([facility]/HCC) (Primary Dx); Cough, unspecified type; Fibrotic lung diseases (CMS/HCC) 12/03/2024 3:00 PM EDT Office Visit [facility] [address] [facility], [address] [place] [address] Nikko Morfin MD Bronchiectasis without complication ([facility]/HCC) (Primary Dx); Cough, unspecified type; Recurrent aspiration pneumonitis 12/03/2024 1:30 PM EDT Ancillary Procedure [facility] [address] [facility] [address], [address] [place] [address] Bronchiectasis without complication ([facility]/HCC) 12/03/2024 Travel 11/28/2024 Telephone [facility] [address] [facility] 2nd [place] [address] Rishi Deluca PA 11/23/[address] [facility] Adult [facility]istry [address] [place] [address] None, None 10/26/[address] [facility] Medicine Specialties [address], 2nd [place] [address] Nikko Morfin MD 10/02/2024 Telephone [facility] [address] [place] [address] Nia Johnson, ANA LUISA from Last 3 [...] any time in the past 12 m [facility], were you homeless or living [...] 12/13/2024 12:40 PM EDT Appointment [facility] [address], 2nd [place] [address] 12/13/2024 2:45 PM EDT Clinical Support [facility] [address] [place] [address] 12/13/2024 3:00 PM EDT Office Visit [facility] [address] [place] [address] Nia Johnson R, POLYMERIZATION OVEN TENDER [address] [facility] [address] [place] [address] 12/21/2024 2:30 PM EDT Office Visit [facility] [address] [facility], 2nd [place] [address] Rishi Deluca S, PA [address] [place] [address] 03/11/2025 11:40 AM EST Office Visit Professional [facility] [address], [address] [place] [address] Nikko Morfin MD [address] [facility] [address] [place] [address] Health Maintenance Due Date Last Done Comments [facility]-Infant/Child/Adol SDOH Screenings [address] CT Colonography 1994 Colonoscopy 1994 FIT-DNA 1994 FIT 1994 FOBT 1994 Sigmoidoscopy 1994 [facility]-Colorectal Cancer Screening 1994 [facility]-DTaP,Tdap,and Td Vaccine s (1 - Tdap) 07/04/1996 07/03/1996 BZA-YOYPB-12 Vaccine ( season) 2024 03/11/2021, 07/09/2020, 06/11/2020 [...] Relevant to Health Maintenance Results * (ABNORMAL) Cystic Fibrosis Respiratory Culture and Gram Stain (12/03/2024 3:43 PM EDT) Culture Heavy Growth 12/10/2024 3:50 PM EDT [facility] Culture Biotype 1 Methicillin-Resis tant Staphylococcus aureus(AA) CATHI 12/10/2024 3:50 PM EDT [facility] Comment: The organism value for this result has been updated. These results have been appended to the previously preliminary verified report. Edited result: Previously reported as Staphylococcus aureus on 12/05/2024 at 1429 EDT. Staphylococcus aureus has been updated to reportable. Culture Biotype 2 Methicillin-Resis tant Staphylococcus aureus(AA) CATHI 12/10/2024 3:50 PM EDT [facility] Comment: The organism value for this result has been updated. These results have been appended to the previously preliminary verified report. Edited result: Previously reported as Staphylococcus aureus on 12/05/2024 at 1429 EDT. Staphylococcus aureus has been updated to reportable. Culture Achromobacter denitrificans(A) CATHI 12/10/2024 3:50 PM EDT [facility] Comment: This result was determined by MALDI tof Mass spectrometry. This assay was developed and its performance characteristics determined by [facility] as appropriate for clinical purposes. [...] 10 Epithelial cells/LPF(A) 12/10/2024 3:50 PM EDT [facility] Gram Stain Result Greater than 25 WBC/LPF(A) 12/10/2024 3:50 PM EDT [facility] Gram Stain Result Numerous Gram positive cocci in clusters(A) 12/10/2024 3:50 PM EDT [facility] Gram Stain Result Moderate Gram positive rods(A) 12/10/2024 3:50 PM EDT [facility] Gram Stain Result Rare Budding yeast(A) 12/10/2024 3:50 PM EDT [facility] Sputum Topography unknown / Unknown [...] MICROBIOLOGY - GENERAL ORD ERABLES Final Result [facility] [address] [place] [address] * (ABNORMAL) Pulmonary function testing (12/03/2024 3:42 PM EDT) KBI7GBB 2.04 1.99 - 3.64 L VYAIRE PFT FVC PRED 2.81 VYAIRE PFT FVC LLN 1.99 VYAIRE PFT FVCPREZSCORE -1.54 VYAIRE PFT FVCPRE%PRED 73 % % VYAIRE PFT FVC PREDAUT US_Quanjer GLI (2011) VYAIRE PFT FVC Z-SCORE -1.54 VYAIRE PFT FEV1 PRE 1.43(A) 1.44 - 2.80 L VYAIRE PFT FEV1 PRED 2.15 VYAIRE PFT FEV1 LLN 1.44 VYAIRE PFT ZRJ5AUWODLFVR -1.67 VYAIRE PFT FEV1_Pre%Pred 66 % % VYAIRE PFT FEV1 PREDAUTH US_Quanjer GLI (2011) VYAIRE PFT FEV1 Z-SCORE -1.67 VYAIRE PFT FEV1/FVC PRE 70.10 62.93 - 89.29 % VYAIRE PFT XGA1RRVDTTV 77 VYAIRE PFT DTF1KIUFYD 63 VYAIRE PFT DUD2OTBFGWNCOJOJ -0.82 VYAIRE PFT SAN1AGRSXU%PRED 91 % % VYAIRE PFT DQP1ANMYYXPH US_Quanjer GLI (2011) VYAIRE PFT CGB6QLRLSKELI -1 VYAIRE PFT GZP05-32% PRE 0.89 0.54 - 3.41 L/s VYAIRE PFT XJU50-75%_Pred 1.67 VYAIRE PFT OAB7016%LLN 0.54 VYAIRE PFT OQG6485%PREZSCORE -1.03 VYAIRE PFT LUS2190%PRE%PRED 54 % % VYAIRE PFT DHK0812%PREDAUTSANTA ANA HEALTH CENTER_Quanjer GLI (2011) VYAIRE PFT PEF PRE 3.99(A) 4.25 - 8.75 L/s VYAIRE PFT PEF PRED 6.50 VYAIRE PFT PEF LLN 4.25 VYAIRE PFT PEFPREZSCORE -1.83 VYAIRE PFT PEFPRE%PRED 61 % % VYAIRE PFT PEF PREDAUT NHANES III (1998) VYAIRE PFT LGTRUALVQUQTNNGY8SY E 10.95(A) 15.45 - 28.11 ml/(min* mmHg) VYAIRE PFT DLCOSINGLEBREATH PRED 21.21 VYAIRE PFT DLCOSINGLEBREATH LLN 15.45 VYAIRE PFT DLCOSINGLEBREATH Z-SCORE -3.21 VYAIRE PFT DLCOSINGLEBREATH % PRED 51.6 % VYAIRE PFT DLCOSINGLEBREATH PREDMo[facility] TLCO GLI (2019) VYAIRE PFT DLCOSINGLEBREATH Z-SCORE -3.21 12/03/2024 3:42 PM EDT VYAIRE PFT YAQGUU4XEB 3.21 3.00 - 5.28 ml/(min* mmHg*L) VYAIRE PFT DLCOVAPRED 4.09 VYAIRE PFT DLCOVALLN 3.00 VYAIRE PFT DLCOVAZSCORE -1.31 VYAIRE PFT DLCOVA%PRED 78.5 % VYAIRE PFT DLCOVAPREDAUTNemours Foundationvic TLCO GLI (2019) VYAIRE PFT DLCOVAZSCORE -1.31 12/03/2024 3:42 PM EDT VYAIRE PFT LESEUQRUTFKUZY1BBW 3.41(A) 4.19 - 6.32 L VYAIRE PFT VASINGLEBREATH PRED 5.22 VYAIRE PFT VASINGLEBREATH LLN 4.19 VYAIRE PFT VASINGLEBREATH Z-SCORE -3.00 VYAIRE PFT VASINGLEBREATH % PRED 65.4 % VYAIRE PFT VASINGLEBREATH PREDRutherford Regional Health Systemvic TLCO GLI (2019) VYAIRE PFT VASINGLEBREATH Z-SCORE -3.00 12/03/2024 3:42 PM EDT VYAIRE PFT GCCSPFPSLZQCLZQ6YZC 2.06 1.99 - 3.64 L VYAIRE PFT IVCSINGLEBREATH PRED 2.81 VYAIRE PFT IVCSINGLEBREATH LLN 1.99 VYAIRE PFT IVCSINGLEBREATH Z-SCORE -1.51 VYAIRE PFT IVCSINGLEBREATH % PRED 73.3 % VYAIRE PFT IVCSINGLEBREATH PREDLOVELACE REHABILITATION H[facility] US_Quanjer GLI (2011) VYAIRE PFT WILLIAM% VCMAX PRE 94.82 % VYAIRE PFT TLC SB PRE 3.54(A) 4.61 - 7.17 L VYAIRE PFT TLCSINGLEBREATH PRED 5.88 VYAIRE PFT TLCSINGLEBREATH LLN 4.61 VYAIRE PFT TLCSINGLEBREATH Z-SCORE -3.05 VYAIRE PFT TLCSINGLEBREATH % PRED 60.2 % VYAIRE PFT TLCSINGLEBREATH PREDWestern [facility] Hospital Lung volumes GLI (2019)__ VYAIRE PFT BHY0DKH 4.81 4.61 - 7.17 L VYAIRE PFT TLCPRED 5.88 VYAIRE PFT TLCLLN 4.61 VYAIRE PFT TLCULN 7.17 VYAIRE PFT TLCZSCORE -1.38 VYAIRE PFT TLC%PRED 81.9 % VYAIRE PFT TLCPREDAUTEast [facility] Lung volumes GLI (2019)__ VYAIRE PFT VC0PRE 2.06 1.99 - 3.64 L VYAIRE PFT VCPRED 2.81 VYAIRE PFT VCLLN 1.99 VYAIRE PFT VCULN 3.64 VYAIRE PFT VCZSCORE -1.51 VYAIRE PFT VC%PRED 73.3 % VYAIRE PFT VCPREDAUTSANTA ANA HEALTH CENTER_Quanjer GLI (2011) VYAIRE PFT IC0PRE 1.06(A) 1.77 - 3.30 L VYAIRE PFT ICPRED 2.55 VYAIRE PFT ICLLN 1.77 VYAIRE PFT ICULN 3.30 VYAIRE PFT IC Z-SCORE -3.04 VYAIRE PFT IC%PRED 41.7 % VYAIRE PFT ICPREDAUTEast [facility] Hospital Lung volumes GLI (2019)__ VYAIRE PFT CHHKYTXW5DAR 3.75 2.20 - 4.35 L VYAIRE PFT FRCPLETH PRED 3.16 VYAIRE PFT FRCPLETH LLN 2.20 VYAIRE PFT FRCPLETH ULN 4.35 VYAIRE PFT FRCPLETH Z-SCORE 0.86 VYAIRE PFT FRCPLETH % PRED 118.8 % VYAIRE PFT FRCPLETH PREDAUTEast [facility] Hospital Lung volumes GLI (2019)__ VYAIRE PFT DTJ4BXQ 0.99 0.27 - 1.92 L VYAIRE PFT ERVPRED 0.93 VYAIRE PFT ERVLLN 0.27 VYAIRE PFT ERVULN 1.92 VYAIRE PFT ERV Z-SCORE 0.13 VYAIRE PFT ERV%PRED 106.9 % VYAIRE PFT ERVPREDAUTEast [facility] Hospital Lung volumes GLI (2019)__ VYAIRE PFT RV0PRE 2.75 1.27 - 3.39 L VYAIRE PFT RVPRED 2.23 VYAIRE PFT RVLLN 1.27 VYAIRE PFT RVULN 3.39 VYAIRE PFT RVZSCORE 0.78 VYAIRE PFT RV%PRED 123.6 % VYAIRE PFT RVPREDAUTEast [facility] Lung volumes GLI (2019)__ VYAIRE PFT RV%QWU9IDE 57.25(A) 25.79 - 51.08 % VYAIRE PFT RV%TLCPRED 38 VYAIRE PFT RV%TLCLLN 26 VYAIRE PFT RV%TLCULN 51 VYAIRE PFT RV%TLCZSCORE 2.41 VYAIRE PFT RV%TLC%PRED 150.1 % VYAIRE PFT RV%TLCPREDAUT Nguy[facility]n Lung volumes GLI (2020)__ VYAIRE PFT Anatomical Region Laterality Modality PFT 12/03/2024 11:3 8 AM EDT Narrative 12/03/2024 9:59 PM EDT Pulmonary Function Testing Report Juan Luis Bah underwent pulmonary function testing today at the [facility]. The patient underwent spirometry, lung volumes by [...] Antibody Negative Negative 08/03/2024 8:56 AM EDT [facility] Blood Venous blood specimen / Unknown Venipuncture / Unknown 08/03/2024 7:56 AM EDT 08/03/2024 8:16 AM EDT Chetan Jose MD LAB BLOOD ORDERABLES Final Re sult [facility] [address] [place] [address] * (ABNORMAL) Hemoglobin A1c (07/26/2024 1:22 AM EDT) Hemoglobin A1c 5.9(H) <5.7 % 07/26/2024 11:08 AM EDT [facility] Blood Venous blood specimen / Unknown Venipuncture / Unknown 07/26/2024 1:22 AM EDT 07/26/2024 1:45 AM EDT Narrative [facility] - 07/26/2024 11:08 AM EDT HA1C Interpretive Data: Diagnosis of Diabetes: Diabetic > or = 6.5% Pre-diabetic 5.7 to 6.4% Non-diabetic < or = 5.6% Glycemic Targets for Type I and Type II Diabetics: Non- Adults <7.0% Adults <6.0% Children and Adolescents <7.5% Source: [employer] Diabetes Association. Standards of medical care in diabetes,2017. Diabetes Care.2017:40 (suppl 1):S1-S135. HbA1c assay performed by an ion-exchange chromatography method that is certified traceable to the DCCT. us Deloris San DO LAB BLOOD ORDERABLES Final Result Performing Organization Address [facility] Co de Phone Number [facility] [address] [place] [address] * Dexa Bone Density (02/24/2023 12:42 PM [...] the non-dominant forearm was performed using a Angle Horizon A Dual- energy X-ray Absorptiometry (DXA) [...] the non-dominant forearm was performed using a 42Floorsn A Dual- energy X-ray Absorptiometry (DXA) scanner (software [id number]). COMPARISON/CORRELATION: No comparison. No recent correlative imaging. 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
--- OUTSIDE RECORDS SUMMARY | 2024-12-11 09:07 | XMS_ITS | Encounter Summary ---
Author Organization Healthcare Address [address] [place] [address] Care Team Providers Care Maintenance Analyst Name Role Phone Damian Saini MD Primary Care Provider [phone] Encounter Details Date Type Department Care Team [...] any time in the past 12 m [facility], were you homeless or living in a longterm (including now)? No 08/02/2024 Utilities Answer Date Recorded In the past 12 months has th e [employer], gas, oil, or water company threatened to [...] Description 12/13/2024 12:40 PM EDT Appointment [facility] [address] [facility]nd [place] [address] 12/13/2024 2:45 PM EDT Clinical Support [facility] [address] [place] [address] 12/13/2024 3:00 PM EDT Office Visit [facility] [address] [place] [address] Nia Johnson, VISION REHABILITATION THERAPIST 800 [facility] [address] [place] [address] 12/21/2024 2:30 PM EDT Office Visit [facility] [address] [facility], 2nd [place] [address] Rishi Deluca, PA [address] [place] [address] 03/11/2025 11:40 AM EST Office Visit Professional [facility] [address] [facility] [place] [address] Nikko Morfin MD [address] [facility] [address] [place] [address] documented as of this encounter [...] documented as of this encounter Care Teams Maintenance Analyst Relationship Specialty Start Date End Date Damian Saini MD [address] [place] [address] PCP - General 09/12/20 documented as of this encounter
== END 2024-12-11 23:59 | disposition home or self-care (01) ==
PROVIDERS: PCP Family Medicine; Visit Provider Student in an Organized Health Care Education/Training Program
DX: J47.9 Bronchiectasis, uncomplicated (principal)
CPT/HCPCS: 87101; 87116

== ENCOUNTER 2024-12-12 13:58 | Outpatient (CLI) | payer BC, SELFPAY ==
--- OUTSIDE RECORDS SUMMARY | 2024-12-03 13:30 | XMS_ITS | Encounter Summary ---
Author Organization Healthcare Address [address] [place] [address] Care Team Providers Care Watermaster Name Role Phone Damian Saini MD Primary Care Provider [phone] Encounter Details Date Type Department Care Team (Latest Contact Info) Description 12/03/2024 1:30 PM EDT Ancillary Procedure Professional [facility] [address], [address] [place] [address] Bronchiectasis without complication (CMS/HCC) Social [...] any time in the past 12 m [facility], were you homeless or living in a fpc (including now)? No 08/02/2024 Utilities Answer Date [...] Info) Description 12/13/2024 12:40 PM EDT Appointment [facility] [address] [place] [address] 12/13/2024 2:45 PM EDT Clinical Support [facility] [address] [place] [address] 12/13/2024 3:00 PM EDT Office Visit [facility] [address] [place] [address] Nia Johnson, HIGH SCHOOL MATHEMATICS TEACHER [address] [facility] [address] [place] [address] 12/21/2024 2:30 PM EDT Office Visit Pav [facility] Head[facility] Neck [facility] Respiratory [address] [facility]nd [place] [address] Rishi Deluca, PA [address] [place] [address] 03/11/2025 11:40 AM EST Office Visit [facility] [address], [address] [place] [address] Nikko Morfin MD [address] [place] [address] documented as of this encounter Procedures Procedure Name Priority Date/Time Associated Diagnosis Comments HC DIFFUSING CAPACITY - CARBON MONOXIDE DIFFUSING CAPACITY Routine 12/03/2024 3:42 PM EDT Bronchiectasis without complication (CMS/HCC) documented in this encounter Results * (ABNORMAL) Pulmonary function testing (12/03/2024 3:42 PM EDT) NJT2WWE 2.04 1.99 - 3.64 L VYAIRE PFT FVC PRED 2.81 VYAIRE PFT FVC LLN 1.99 VYAIRE PFT FVCPREZSCORE -1.54 VYAIRE PFT FVCPRE%PRED 73 % % VYAIRE PFT FVC PREDAUTB[facility]ist [facility] for [facility] (2011) VYAIRE PFT FVC Z-SCORE -1.54 VYAIRE PFT FEV1 PRE 1.43(A) 1.44 - 2.80 L VYAIRE PFT FEV1 PRED 2.15 VYAIRE PFT FEV1 LLN 1.44 VYAIRE PFT UNC1QIQIHAQGR -1.67 VYAIRE PFT FEV1_Pre%Pred 66 % % VYAIRE PFT FEV1 PREDAUTBaptist [facility] Hospital for [facility] (2011) VYAIRE PFT FEV1 Z-SCORE -1.67 VYAIRE PFT FEV1/FVC PRE 70.10 62.93 - 89.29 % VYAIRE PFT RCW9XWNTZCO 77 VYAIRE PFT DWQ6VKJCAU 63 VYAIRE PFT JEM7LYREFHQNYMLP -0.82 VYAIRE PFT JPL6FPQLDH%PRED 91 % % VYAIRE PFT EHM9HFGYHEQP [facility] (2011) VYAIRE PFT RBW7WEEXNNGHV -1 VYAIRE PFT DCF70-71% PRE 0.89 0.54 - 3.41 L/s VYAIRE PFT ESO65-51%_Pred 1.67 VYAIRE PFT LOA2770%LLN 0.54 VYAIRE PFT KKF3431%PREZSCORE -1.03 VYAIRE PFT MAS7875%PRE%PRED 54 % % VYAIRE PFT FBG9866%PREDCamden General Hospital (2011) VYAIRE PFT PEF PRE 3.99(A) 4.25 - 8.75 L/s VYAIRE PFT PEF PRED 6.50 VYAIRE PFT PEF LLN 4.25 VYAIRE PFT PEFPREZSCORE -1.83 VYAIRE PFT PEFPRE%PRED 61 % % VYAIRE PFT PEF PREDINS[facility] NHAN[facility] III (1998) VYAIRE PFT FNQOSNINBUZRXPYH2YG E 10.95(A) 15.45 - 28.11 ml/(min* mmHg) VYAIRE PFT DLCOSINGLEBREATH PRED 21.21 VYAIRE PFT DLCOSINGLEBREATH LLN 15.45 VYAIRE PFT DLCOSINGLEBREATH Z-SCORE -3.21 VYAIRE PFT DLCOSINGLEBREATH % PRED 51.6 % VYAIRE PFT DLCOSINGLEBREATH PREDINSCRIPTION [facility]SE [facility]ALTH [facility] Stanojevic TLCO GLI (2019) VYAIRE PFT DLCOSINGLEBREATH Z-SCORE -3.21 12/03/2024 3:42 PM EDT VYAIRE PFT ISRYUO8LAC 3.21 3.00 - 5.28 ml/(min* mmHg*L) VYAIRE PFT DLCOVAPRED 4.09 VYAIRE PFT DLCOVALLN 3.00 VYAIRE PFT DLCOVAZSCORE -1.31 VYAIRE PFT DLCOVA%PRED 78.5 % VYAIRE PFT DLCOVAPREDAUT St[facility] TLCO GLI (2019) VYAIRE PFT DLCOVAZSCORE -1.31 12/03/2024 3:42 PM EDT VYAIRE PFT PLNDPPGHIJMOSD2ZUW 3.41(A) 4.19 - 6.32 L VYAIRE PFT VASINGLEBREATH PRED 5.22 VYAIRE PFT VASINGLEBREATH LLN 4.19 VYAIRE PFT VASINGLEBREATH Z-SCORE -3.00 VYAIRE PFT VASINGLEBREATH % PRED 65.4 % VYAIRE PFT VASINGLEBREATH PREDINSCRIPTION [facility] Stanojevic TLCO GLI (2019) VYAIRE PFT VASINGLEBREATH Z-SCORE -3.00 12/03/2024 3:42 PM EDT VYAIRE PFT WQQNRNJEFAQFRME4ECL 2.06 1.99 - 3.64 L VYAIRE PFT [...] % PRED 60.2 % VYAIRE PFT TLCSINGLEBREATH PREDNorth [facility] Lung volumes GLI (2019)__ VYAIRE PFT CMH9DMR 4.81 4.61 - 7.17 L VYAIRE PFT TLCPRED 5.88 VYAIRE PFT TLCLLN 4.61 VYAIRE PFT TLCULN 7.17 VYAIRE PFT TLCZSCORE -1.38 VYAIRE PFT TLC%PRED 81.9 % VYAIRE PFT TLCPREDNorth [facility] Hospital Lung volumes GLI (2019)__ VYAIRE PFT [...] VYAIRE PFT IC%PRED 41.7 % VYAIRE PFT ICPREDAUTBet[facility] Lung volumes GLI (2019)__ VYAIRE PFT NNDSQLXY3DFP 3.75 2.20 - 4.35 L VYAIRE PFT FRCPLETH PRED 3.16 VYAIRE PFT FRCPLETH LLN 2.20 VYAIRE PFT FRCPLETH ULN 4.35 VYAIRE PFT FRCPLETH Z-SCORE 0.86 VYAIRE PFT FRCPLETH % PRED 118.8 % VYAIRE PFT FRCPLETH PREDNorth [facility] Regional Hospital Lung volumes GLI (2019)__ VYAIRE PFT AXC7XXD 0.99 0.27 - 1.92 L VYAIRE PFT [...] [facility] Lung volumes GLI (2019)__ VYAIRE PFT RV%WFH0OEX 57.25(A) 25.79 - 51.08 % VYAIRE PFT [...] underwent pulmonary function testing today at the [facility]. The patient underwent spirometry, lung volumes [...] documented as of this encounter Care Teams Watermaster Relationship Specialty Start Date End Date Damian Saini MD [address] [facility] [place] [address] PCP - General 09/12/20 documented as of this encounter
--- OUTSIDE RECORDS SUMMARY | 2024-12-03 15:00 | XMS_ITS | Encounter Summary ---
Author Organization Healthcare Address [address] [place] [address] Care Team Providers Care Cupola Melter Helper Name Role Phone Damian Saini MD Primary Care Provider [phone] Reason for Referral * Consultation (Routine) - Authorized Specialty Diagnoses / Procedures Referred By Marco Antonio lee Referred To Contact Diagnoses Bronchiectasis without complication (CMS/HCC) Nikko Morfin MD [address] [address] Phone: tel: fax: Referral ID Status Reason Start Date Expiration Date V isits Requested Visits Authorized [id number] Authorized 12/03/2024 06/04/2026 1 1 Reason for Visit * Reason Comments Follow-up * Consultation (Routine) - Closed Specialty Diagnoses / Procedures Referred By Marco Antonio lee Referred To Contact Diagnoses Bronchiectasis without complication (CMS/HCC) Nikko Morfin MD [address] [address] Phone: tel: fax: Referral ID Status Reason Start Date Expiration Date Visits Re quested Visits Authorized [id number] Closed 08/30/2024 03/01/2026 1 1 Encounter Details Date Type Department Care Team (Latest Contact Info) Description 12/03/2024 3:00 PM EDT Office Visit [facility] [address] [place] [address] Nikko Morfin MD [address] [place] [address] Bronchiectasis without complication (CMS/HCC) (Primary Dx); Cough, unspecified type; Recurrent aspiration pneumonitis Social History Tobacco Use Types Packs/Day Years [...] any time in the past 12 m [facility], were you homeless or living in a chcf (including now)? No 08/02/2024 Utilities Answer Date Recorded In the past 12 months has th e [employer], gas, oil, or water [employer] threatened to shut off services in your home? No 08/02/2024 PHQ-2A Answer Date Recorded Depression Risk 0 11/24/2023 Sex and Gender Information Value Date Recorded Sex Assigned at Not on file Legal Sex Male 7:50 PM EDT Gender Identity Not on file Sexual Orientation Not on file documented as of this encounter Last Filed Vital Signs Vital Sign Reading Time Taken Comments Blood Pressure 129/70 12/03/2024 12:54 PM EDT Pulse 84 12/03/2024 12:54 PM EDT Temperature - - Respiratory Rate - - Oxygen Saturation 92% 12/03/2024 12:54 PM EDT Inhaled Oxygen Concentration - - Weight 58.2 kg (128 lb 4.9 oz) 12/03/2024 12:54 PM EDT Height 165.1 cm (5' 5 ) 12/03/2024 12:54 PM EDT Body Mass Index 21.35 12/03/2024 12:54 PM EDT documented in this encounter Functional Status * Over the [...] Marilou Mackay documented as of this encounter Miscellaneous Notes * Progress Notes - Nikko Morfin MD - 12/03/2024 3:00 PM EDT PULMONARY FOLLOW-UP OUTPATIENT NOTE: Patient ID/Chief Complaint: .Juan Luis Cruz is a 74 y.o. male presenting for follow up on bronchiectasis. 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 He was initially seen 01/19/24 as a consult. He gets his nutrition via PEG but does take PO and often aspirates. At the time of initial visit he had dry mouth due to radiation and used topical mouthwash, water. After eating and drinking coughed frequently. Did not always have a productive cough. After an aspiration event he can have yellowish productive cough. No SOB or cough usually. Could walk multiple miles on flat ground without needing to stop. Could climb multiple flights of stairs prior to needing to stop. Did not have any ASTUDILLO. Seen 04/23/25 was doing well and had no pulmoanry complaints. He was admitted 07/20/24 - 08/01/24. Had a RLL empyema and PJP PNA. Had a chest tube placed from 07/23 - 07/31. He required 4 doses of TPA/dornase. This grew strep and NTM. Was seen by thoracic and no surgical intervention needed. Was seen by ID who had him on flagyl, bactrim and rocephin. He followed up with ID out pt 08/10/24 who stopped rocephin, flagyl, bactrim and started augmentin. He was seen 08/31 with the plan to continue augmentin for 1 more month. Last seen 08/30. At that time he was weak and fatigued but doing better. He was no longer having any SOB. He was able to do a bunch of yard work the other day and tolerated it well. He was tired afterwards. He did have some clear sputum which is expected while recovering from empyema. At this time he is doing well. HE does have a bit of a cough that has been going on for 6 days now.Is productive of some thick white sputum. Denies fevers, chills, purulent sputum, hemoptysis. Has not been using his flutter valve daily. Denies f/c, night sweats, weight loss, purulent sputum production, hemoptysis, LE edema. Does usually have aspiration PNA 1-2x a year treated out pt. Cancer history Diagnosed 2010. Chemo and radiation 2010. SHx: Never smoker. 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 Cuts tobacco once a year since age 12, not involved in any process of it. FHx: heart disease, DM, HTN, COPD (smoker) PSHx: appendectomy, G-tube, H+N surgery PFSH: Reviewed in EMR, Significant Changes Noted Above Review of Systems: Constitutional: No fevers, chills, fatigue, no involuntary weight loss HEENT: No vision or hearing changes Lymphadenopathy: No enlarged lymph glands under jaw or in axillae Respiratory: As Above Cardiac: No chest pain or palpitations, no lower extremity edema Gastrointestinal: No dysphagia nausea, vomiting, pain, or abnormal bowel patterns/bloody stool. Genitourinary: No dysuria or increased urinary frequency; no hematuria Integumentary: No rash or hair changes Psychiatric: No suicidal ideations Endocrine: No sweats or increased thirst Allergic/Immunologic: No allergic triggers. Medications: Current Medications[1] Immunizations: Chart reviewed: immunizations are up to date and documented. Immunization History Administered Date(s) Administered Influenza, high-dose, quadrivalent 05/23/2023 Moderna COVID-19 Vaccine (Billing Machine Operator) 12+ years 06/11/2020, 07/09/2020, 03/11/2021 Pneumococcal 20-kel Conj Vaccine 01/19/2024 Pneumococcal, Unspecified 04/02/2016 Rsv, Bivalent, Protein Subunit Rsvpref, Diluent Reconstituted, 0.5mL, PF 11/19/2024 TD (adult), 2 Lf tetanus toxoid, preservative free, adsorbed 07/03/1996 Zoster, Recombinant 11/19/2024 Physical Examination: Vital Signs: Blood pressure 129/70, pulse 84, height 1.651 m (5' 5 ), weight 58.2 kg (128 lb 4.9 oz), SpO2 92%. General: The patient appears in no acute distress. Alert, cooperative and interactive HEENT: NC/AT, PERRL, Normal nasal mucosa, MMM. Neck: Trachea midline, No masses, No JVD. Lymphadenopathy: No palpable anterior cervical, submandibular, submental, or posterior cervical lymphadenopathy. No palpable supra- or infraclavicular lymphadenopathy Chest: Clear to auscultation bilaterally, No wheezing, rhonchi, or rales. No end-expiratory wheeze with forced expiratory maneuvers. Normal work of breathing. Equal chest rise. Cardiac: Regular rhythm, normal rate, S1S2 auscultated. No murmurs, rubs or gallops Abdomen: Soft, non-tender, non-distended, positive bowel sounds in all four quadrants Extremities: No lower extremity edema. No clubbing or cyanosis. Skin: No rashes, open wounds, or bruising. Warm, dry, well-perfused. Neuro: Motor power grossly intact bilaterally, CN II-XII grossly intact. Sensation intact. Speech fluid and fluent. Thought process coherent. Psych: Alert and oriented x 3, Mood stable. Review of Data: Laboratory Studies: I personally reviewed recent lab work in EMR. Radiology Results: I have personally reviewed and interpreted the images in EMR. Pulmonary Function Testing: PFT 12/03/24 FVC 2.04 (-1.54) FEV1 1.43 (-1.67) FEV1/FVC 70 TLC 4.81 (82%) ERV 0.99 (106%) RV 2.76 (123%) RV/TLC 57 (150%) DLCO 10.95 (-3.21) No obstruction or restriction. Airtrapping. Moderate reduction in DLCO. PFT 04/23/24 FVC 2.62 (-0.41) post 2.88 (+10%) FEV1 1.96 (-0.48) post 2.19 (+12%) FEV1/FVC 75 TLC 5.43 (92%) ERV 0.94 (101%) RV 2.51 (113%) RV/TLC 46 (122%) DLCO 13.08 (-2.46) No obstruction or restriction. Moderate reduction in diffusion. CT 08/30/24 Trace R effusion. New RUL GGO likely aspiration. Tracheal debris. Improved b/l LL atelectasis. CT 07/29/24 R sided chest tube in place with improved effusion. Resolved L sided effusion. Imporved SILVANO consolidation but still present. Improved b/l LL atelectasis but still present. 07/26/24 R sided chest tube with improved effusion. B/l pleural effusions with pleural thickening. B/l LL atelectasis. Improved consolidation. B/l LL fibrosis. Adenopathy. 07/20/24 New b/l upper lobe GGO. New RLL loculated pleural effusion. B/l LL consolidation. B/l LL fibrosis. HRCT 04/23/24 B/l LL non UIP fibrosis unchanged. Patulous esophagus. Most likely related to aspiration. CT chest 11/24/23 Mild emphysema. B/l LL bronchiectasis. RLL GGO mostly replaced with fibrotic changes. Secretions inairway. Patulous esophagus. Elevation of L hemidiaphragm likely 2/2 significant gas filled bowel. CT chest 11/18/22 Mild emphysema. B/l LL bronchiectasis with slight GGO. No adenopathy. Apical scaring. Relatively unchanged. CT chest 11/19/21 Mild emphysema. B/l LL bronchiectasis with slight GGO. Worsening LLL GGO. No adenopathy. Apical scaring. Relatively unchanged. Worsening LLL GGO and reticulations with bronchiectasis. CT chest 11/19/2020 Mild emphysema. B/l LL bronchiectasis with slight GGO. No adenopathy. Secretions in trachea. Apicalscaring. Relatively unchanged. CT chest 03/15/2019 Mild emphysema. B/l LL bronchiectasis with slight GGO. No adenopathy. Secretions in trachea. Apicalscaring. Relatively unchanged. CT chest 11/19/2016 Mild emphysema. B/l LL bronchiectasis with slight GGO. No adenopathy. Patulous esophagus. Apical scaring. Echo 04/23/24 Normal LV and RV size and function. Labs 02/10/24 IgA 325, IgE 308, IgG 2113, IgM 132 IgG subclasses normal Alpha 1 214 MM CCP, RF, MICHAEL, SSA, SSB normal ITM 1:160, speckled Aspergillus IgE negative CF negative Sputum from [facility] negative for AFB Impression: Bronchiectasis Fibrotic Lung Disease Recurrent Aspiration Reduced Diffusion Capacity Cough Cause of bronchiectasis is most likely 2/2 recurrent aspiration due to dysphagia from neck radiation. Pt still takes some PO intake but is tube feed dependent. Bronchiectasis workup negative for other causes. Reduced DLCO can be explained by chronic fibrotic lung disease. - extensive bronchiectasis workup negative - cause of bronchiectasis is most likely 2/2 recurrent aspiration - sputum AFB x3 - [facility] - sputum gram stain and culture -[facility] - CF sputum today - flutter valve BID - gave nebulizer machine today, start albuterol and 7% saline BID - aspiration precautions, already doing well - if any infectious symptoms may need Abx Pulmonary Health Maintenance - never smoker - has PCV and RSV - needs flu when available Total time spent 55 min reviewing prior records, imaging, spirometry and completing documentation [1] Current Outpatient Medications Medication Sig Dispense Refill multivitamin (Theragran-M) tablet 1 tablet by Per G Tube route daily. ondansetron ODT (Zofran-ODT) 4 MG disintegrating tablet Dissolve 2 tablets on the tongue every 6 hours as needed for nausea or vomiting. (Patient not taking: Reported on 12/03/2024) 20 tablet 0 promethazine (Phenergan) 25 MG suppository Insert 1 suppository into the rectum every 6 hours as needed for nausea or vomiting. (Patient not taking: Reported on 12/03/2024) 12 each 0 No current facility-administered medications for this visit. documented in this encounter Plan of Treatment Upcoming Encounters Date Type Department Care Team (Late st Contact Info) Description 12/13/2024 12:40 PM EDT Appointment [facility] [address] [place] [address] 12/13/2024 2:45 PM EDT Clinical Support [facility] [address] [place] [phone] 12/13/2024 3:00 PM EDT Office Visit [facility] [address] [place] [address] Nia Johnson APRN [address] [facility] [address] [place] [address] 12/21/2024 2:30 PM EDT Office Visit [facility] [address] [facility], 2nd [place] [address] Rishi Deluca, MAURICIO [address] [facility] [address] [place] [address] 03/11/2025 11:40 AM EST Office Visit [facility] [address] [facility], [address] [place] [address] Nikko Morfin MD [address] [place] [address] Scheduled Orders Name Type Priority Associated Diagnoses Orde r Schedule Respiratory Culture and Gram Stain Microbiology Routine Bronchiectasis without complication ([facility]/HCC) Expected: 12/03/2024 (Approximate), Expires: 06/06/2026 AFB Culture, Respiratory Source and Acid Fast Stain Microbiology Routine Bronchiectasis without complication (CMS/HCC) Expected: 12/03/2024 (Approximate), Expires: 06/06/2026 AFB Culture, Respiratory Source and Acid Fast Stain Microbiology Routine Bronchiectasis without complication (CMS/HCC) Expected: 12/03/2024 (Approximate), Expires: 06/06/2026 AFB Culture, Respiratory Source and Acid Fast Stain Microbiology Routine Bronchiectasis without complication (CMS/HCC) Expected: 12/03/2024 (Approximate), Expires: 06/06/2026 Scheduled Referrals Name Type Priority Associated Diagnoses Orde r Schedule Follow Up Pulm Outpatient Referral Routine Bronchiectasis without complication (CMS/HCC) Expected: 06/05/2025, Expires: 01/03/2026 documented as of this encounter Procedures Procedure Name Priority Date/Time Associated Diagnosis Comments CYSTIC FIBROSIS RESPIRATORY CULTURE AND GRAM STAIN Routine 12/03/2024 3:43 PM EDT Bronchiectasis without complication ([facility]) documented in this encounter Results * (ABNORMAL) Cystic Fibrosis Respiratory Culture and Gram Stain (12/03/2024 3:43 PM EDT) Culture Heavy Growth 12/10/2024 3:50 PM EDT [facility] Culture Biotype 1 Methicillin-Resis tant Staphylococcus aureus(AA) CATHI 12/10/2024 3:50 PM EDT [facility] Comment: The organism value for this result has been updated. These results have been appended to the previously preliminary verified report. Edited result: Previously reported as Staphylococcus aureus on 12/05/2024 at 1429 EDT. Staphylococcus aureus has been updated to reportable. Culture Biotype 2 Methicillin-Resis tant Staphylococcus aureus(AA) CATHI 12/10/2024 3:50 PM EDT [facility] Comment: The organism value for this result has been updated. These results have been appended to the previously preliminary verified report. Edited result: Previously reported as Staphylococcus aureus on 12/05/2024 at 1429 EDT. Staphylococcus aureus has been updated to reportable. Culture Achromobacter denitrificans(A) CATHI 12/10/2024 3:50 PM EDT [facility] Comment: This result was determined by MALDI tof Mass spectrometry. This assay was developed and its performance characteristics determined by [facility] as appropriate for clinical purposes. This assay has not been cleared or approved by the FDA, but is performed in a CLIA regulated laboratory that is qualified to perform high complexity testing. The organism value for this result has been updated. These results have been appended to the previously preliminary verified report. Edited result: Previously reported as Gram Negative Maxim on 12/07/2024 at 0839 EDT. Edited result: Previously reported as Achromobacter species on 12/07/2024 at 1019 EDT. Gram Stain Result Fewer than 10 Epithelial cells/LPF(A) 12/10/2024 3:50 PM EDT [facility] Gram Stain Result Greater than 25 WBC/LPF(A) 12/10/2024 3:50 PM EDT [facility] Gram Stain Result Numerous Gram positive cocci in clusters(A) 12/10/2024 3:50 PM EDT [facility] Gram Stain Result Moderate Gram positive rods(A) 12/10/2024 3:50 PM EDT [facility] Gram Stain Result Rare Budding yeast(A) 12/10/2024 3:50 PM EDT [facility] Sputum Topography unknown / Unknown Non-blood Collection / Unknown 12/03/2024 3:43 PM EDT 12/03/2024 4:07 PM EDT Narrative Organism Antibiotic Method Susceptibility Methicillin-Resistant Staphylococcus aureus Clindamycin CATHI <=0.5 ug/ml: Susceptible Methicillin-Resistant Staphylococcus aureus Erythromycin CATHI >4 ug/ml: Resistant Methicillin-Resistant Staphylococcus aureus Gentamicin CATHI <=1 ug/ml: Susceptible Methicillin-Resistant Staphylococcus aureus Linezolid CATHI 2 ug/ml: Susceptible Methicillin-Resistant Staphylococcus aureus Minocycline CATHI <=1 ug/ml: Susceptible Methicillin-Resistant Staphylococcus aureus Oxacillin CATHI >2 ug/ml: Resistant Methicillin-Resistant Staphylococcus aureus Penicillin G CATHI >1 ug/ml: Resistant Methicillin-Resistant Staphylococcus aureus Tetracycline CATHI <=0.5 ug/ml: Susceptible Methicillin-Resistant Staphylococcus aureus Trimethoprim/Sulfamethoxa zole CATHI <=0.5/9.5 ug/ml: Susceptible Methicillin-Resistant Staphylococcus aureus Vancomycin CATHI 1 ug/ml: Susceptible Methicillin-Resistant Staphylococcus aureus Ceftaroline ETEST 0.50 ug/ml: Susceptible Methicillin-Resistant Staphylococcus aureus Clindamycin CATHI <=0.5 ug/ml: Susceptible Methicillin-Resistant Staphylococcus aureus Erythromycin CATHI >4 ug/ml: Resistant Methicillin-Resistant Staphylococcus aureus Gentamicin CATHI <=1 ug/ml: Susceptible Methicillin-Resistant Staphylococcus aureus Linezolid CATHI 2 ug/ml: Susceptible Methicillin-Resistant Staphylococcus aureus Minocycline CATHI <=1 ug/ml: Susceptible Methicillin-Resistant Staphylococcus aureus Oxacillin CATHI >2 ug/ml: Resistant Methicillin-Resistant Staphylococcus aureus Penicillin G CATHI >1 ug/ml: Resistant Methicillin-Resistant Staphylococcus aureus Tetracycline CATHI <=0.5 ug/ml: Susceptible Methicillin-Resistant Staphylococcus aureus Trimethoprim/Sulfamethoxa zole CATHI <=0.5/9.5 ug/ml: Susceptible Methicillin-Resistant Staphylococcus aureus Vancomycin CATHI 1 ug/ml: Susceptible Methicillin-Resistant Staphylococcus aureus Ceftaroline ETEST 0.38 ug/ml: Susceptible Achromobacter denitrificans Cefepime ETEST 8.0 ug/ml: Susceptible Achromobacter denitrificans Ceftazidime ETEST 0.75 ug/ml: Susceptible Achromobacter denitrificans Levofloxacin ETEST 0.50 ug/ml: Susceptible Achromobacter denitrificans Meropenem ETEST 0.064 ug/ml: Susceptible Achromobacter denitrificans Piperacillin/Tazobactam ET EST 0.38 ug/ml: Susceptible Achromobacter denitrificans Tigecycline ETEST 0.50 ug/ml: No Interpretation Available Achromobacter denitrificans Trimethoprim /Sulfamethoxa zole ETEST 0.125 ug/ml: Susceptible us Nikko Morfin MD LAB MICROBIOLOGY - GENERAL ORD ERABLES Final Result [facility] [address] [place] [address] documented in this encounter Visit Diagnoses Diagnosis Bronchiectasis without complication (CMS/HCC)- Primary Cough, unspecified type Recurrent aspiration pneumonitis Head and neck cancer (CMS/HCC)- Primary documented [...] documented as of this encounter Care Teams Cupola Melter Helper Relationship Specialty Start Date End Date Damian Saini MD [address] [place] [address] PCP - General 09/12/20 documented as of this encounter
--- OUTSIDE RECORDS SUMMARY | 2024-12-12 14:12 | XMS_ITS | Encounter Summary ---
Author Organization [facility] ystem Address [address] [place] [id number] Care Team Providers Care Chair And Couch Maker Name Role Phone Damian Saini MD Primary Care Provider + Encounter Details Date Type Department Care Team (Late st Contact Info) Description 07/11/2024 Results Follow-Up [facility] FAMILY MEDIC[facility] [address] [facility] [place] [phone] Damian Saini MD [address] [facility] [place] [address] Social History Tobacco Use Types [...] on filedocumented in this encounter Care Teams Chair And Couch Maker Relationship Specialty Start Date End Date Damian Saini MD [address] [place] [address] PCP - General Family Medicine 05/23/23 documented as of this encounter
--- OUTSIDE RECORDS SUMMARY | 2024-12-12 14:12 | XMS_ITS | Encounter Summary ---
Author Organization [facility] ystem Address [address] [place] [id number] Care Team Providers Care Truck Trailer Final Inspector Name Role Phone Damian Saini MD Primary Care Provider + Encounter Details Date Type Department Care Team (Late st Contact Info) Description 07/12/2024 Results Follow-Up [facility] FAMILY MEDICINE [address] [facility] [place] [phone] Damian Saini MD [address] [place] [address] Social History Tobacco Use Types [...] on filedocumented in this encounter Care Teams Truck Trailer Final Inspector Relationship Specialty Start Date End Date Damian Saini MD [address] [place] [address] PCP - General Family Medicine 05/23/23 documented as of this encounter
--- OUTSIDE RECORDS SUMMARY | 2024-12-12 14:12 | XMS_ITS | Encounter Summary ---
Author Organization Healthcare Address [address] [place] [address] Care Team Providers Care Manufacturing Assistant Name Role Phone Damian Saini MD Primary Care Provider [phone] Reason for Visit * Reason Onset Date Comments Med Refill 12/06/2024 Encounter Details Date Type Department Care Team (Late st Contact Info) Description 12/06/2024 [facility]ill [facility] [address], [address]nd [place] [address] Nikko Morfin MD [address] [place] [address] Bronchiectasis without complication (CMS/HCC) (Primary [...] any time in the past 12 m [facility], were you homeless or living in a care home (including now)? No 08/02/2024 Utilities Answer Date Recorded In the past 12 months has th e [employer], gas, oil, or water [employer] threatened to shut off services in your [...] 12/13/2024 12:40 PM EDT Appointment [facility] [address] [place] [address] 12/13/2024 2:45 PM EDT Clinical Support [facility] [address] [place] [address] 12/13/2024 3:00 PM EDT Office Visit [facility] [address] [place] [address] Nia Johnson, LICENSED INSURANCE AGENT 800 [facility] [address] [place] [address] 12/21/2024 2:30 PM EDT Office Visit [facility] [address] [facility], 2nd [place] [address] Rishi Deluca, PA [address] [place] [address] 03/11/2025 11:40 AM EST Office Visit Professional [facility] [address] [facility], [address] [place] [address] Nikko Morfin MD [address] [facility] [address] [place] [address] documented as of this encounter [...] documented as of this encounter Care Teams Manufacturing Assistant Relationship Specialty Start Date End Date Damian Saini MD [address] [place] [address] PCP - General 09/12/20 documented as of this encounter
--- OUTSIDE RECORDS SUMMARY | 2024-12-12 14:13 | XMS_ITS | Encounter Summary ---
Author Organization Healthcare Address [address] [place] [address] Care Team Providers Care Budget Specialist Name Role Phone Damian Saini MD Primary Care Provider [phone] Encounter Details Date Type Department Care Team (Late st Contact Info) Description 11/23/2024 Telephone [facility] [address] [place] [address] None, None [address] [place], [place] [phone] Social History Tobacco Use Types Packs/Day Years [...] any time in the past 12 m [facility], were you homeless or living in a [...] 12/13/2024 12:40 PM EDT Appointment [facility] [address] 2nd [place] [address] 12/13/2024 2:45 PM EDT Clinical Support [facility] [address] [place] [address] 12/13/2024 3:00 PM EDT Office Visit [facility] [address] [place] [address] Nia Johnson, DIRECTOR OF BLOOD 800 [facility] [address] [place] [address] 12/21/2024 2:30 PM EDT Office Visit [facility] [address] [facility], 2nd [place] [address] Rishi Deluca, PA [address] [place] [address] 03/11/2025 11:40 AM EST Office Visit Professional [facility] Special[facility] Care Clinic [address] [facility], [address] [place] [address] Nikko Morfin MD [address] [facility] [address] [place] [address] documented as of this encounter [...] documented as of this encounter Care Teams Budget Specialist Relationship Specialty Start Date End Date Damian Saini MD [address] [place] [address] PCP - General 09/12/20 documented as of this encounter
--- OUTSIDE RECORDS SUMMARY | 2024-12-12 14:13 | XMS_ITS | Clinical Summary ---
Author Organization [facility] yste Address [address] [place] [address] Care Team Providers Care Cloud Operations Engineer Name Role Phone Damian Saini MD [...] Description 09/20/2024 12:15 PM EDT Office Visit [facility] [address] [place] [address] Damian Saini MD Contusion of [...] 1206/2015 HEPATITIS C SCREENING Completed 08/03/2024 Insurance REPLACED BY [facility] [employer] BLUE [employer]IELD PPO Care Teams Cloud Operations Engineer Relationship Specialty Start Date End Date Damian Saini MD [address] [facility] [address] [place] [address] PCP - General Family Medicine 05/23/23
--- OUTSIDE RECORDS SUMMARY | 2024-12-12 14:13 | XMS_ITS | Encounter Summary ---
Author Organization Healthcare Address [address] [place] [address] Care Team Providers Care Cardiology Specialist Name Role Phone Damian Saini MD Primary Care Provider [phone] Encounter Details Date Type Department Care Team ([facility] st Contact Info) Description 10/26/2024 Telephone [facility] [address], [address] [place] [address] Nikko Morfin MD [address] [facility] [address] [place] [address] Social History Tobacco Use Types [...] time in the past 12 m [facility], were you homeless or living in a [...] sureif he needs one Best contact number: [phone] Optimal time of day to reach caller: ANYTIME Additional comments/information from caller: None Note: Please do not reply to this message. Follow-up communication and further actions as a result of this message need to be communicated with the patient directly, if the patient is not active onMyChart. If the patient is active on MyChart, they will receive notification of the communication/outcome via LiveRSVPt. documented in this encounter Plan of Treatment Upcoming Encounters Date Type Department Care Team ([facility] Contact Info) Description 12/13/2024 12:40 PM EDT Appointment [facility] [address]nd [place] [address] 12/13/2024 2:45 PM EDT Clinical Support [facility] [address] [place] [address] 12/13/2024 3:00 PM EDT Office Visit [facility] [address] [place] [address] Nia Johnson, TRANSMISSION AND PROTECTION ENGINEER 800 [facility] [address] [facility] [address] [place] [address] 12/21/2024 2:30 PM EDT Office Visit [facility] [address] [facility], 2nd [place] [address] Rishi Deluca, PA [address] [place] [address] 03/11/2025 11:40 AM EST [facility] [address] [facility], [address] [place] [address] Nikko Morfin MD [address] [place] [address] documented as of this encounter Visit Diagnoses [...] documented as of this encounter Care Teams Cardiology Specialist Relationship Specialty Start Date End Date Damian Saini MD [address] [place] [address] PCP - General 09/12/20 documented as of this encounter
--- OUTSIDE RECORDS SUMMARY | 2024-12-12 14:13 | XMS_ITS | Clinical Summary ---
Author Organization Healthcare Address [address] [place] [address] Care Team Providers Care Yarn Spooler Name Role Phone Damian Saini MD Primary Care Provider [phone] Allergies Active Allergy Reactions Criticality Noted Date [...] Type Department Care Team Description 12/06/2024 Refill [facility] Medicine Specialties [address] [place] [address] Nikko Morfin MD Bronchiectasis without complication ([facility]/HCC) (Primary Dx); Cough, unspecified type; Fibrotic lung diseases (CMS/HCC) 12/03/2024 3:00 PM EDT Office Visit [facility] [address] [facility] [facility], [address] [place] [address] Nikko Morfin MD Bronchiectasis without complication ([facility]/HCC) (Primary Dx); Cough, unspecified type; Recurrent aspiration pneumonitis 12/03/2024 1:30 PM EDT Ancillary Procedure [facility] [address] [facility] [facility], [address] [place] [address] Bronchiectasis without complication ([facility]/HCC) 12/03/2024 Travel 11/28/2024 Telephone [facility] [address] [facility] 2nd [place] [address] Rishi Deluca PA 11/23/2024 Telephone [facility] Adult Dentistry [address] [place] [address] None, None 10/26/2024 Telephone [facility] Medicine Specialties [address], 2nd [place] [address] Nikko Morfin MD 10/02/2024 Telephone [facility] [address] [place] [address] Nia Johnson, ANA LUISA from Last 3 [...] any time in the past 12 m [facility], were you homeless or living [...] Info) Description 12/13/2024 12:40 PM EDT Appointment [facility] [address], 2nd [place] [address] 12/13/2024 2:45 PM EDT Clinical Support [facility] [address] [place] [address] 12/13/2024 3:00 PM EDT Office Visit [facility] [address] [place] [address] Nia Johnson R, TRANSPORTATION MANAGER [address] [facility] [address] [place] [address] 12/21/2024 2:30 PM EDT Office Visit [facility] [address] [facility], 2nd [place] [address] Rishi Deluca S, PA [address] [place] [address] 03/11/2025 11:40 AM EST Office Visit Professional [facility] [address] [facility] [facility], [address] [place] [address] Nikko Morfin MD [address] [facility] [address] [place] [address] Health Maintenance Due Date Last Done Comments [facility]-Infant/Child/Adol SDOH Screenings [address] CT Colonography 1994 Colonoscopy 1994 FIT-DNA 1994 FIT 1994 FOBT 1994 Sigmoidoscopy 1994 [facility]-Colorectal Cancer Screening 1994 [facility]-DTaP,Tdap,and Td Vaccine s (1 - Tdap) 07/04/1996 07/03/1996 [id number] Vaccine ( season) 2024 03/11/2021, 07/09/2020, 06/11/2020 [...] Culture Heavy Growth 12/10/2024 3:50 PM EDT [facility] Culture Biotype 1 Methicillin-Resis tant Staphylococcus aureus(AA) CATHI 12/10/2024 3:50 PM EDT [facility] Comment: The organism value for this result has been updated. These results have been appended to the previously preliminary verified report. Edited result: Previously reported as Staphylococcus aureus on 12/05/2024 at 1429 EDT. Staphylococcus aureus has been updated to reportable. Culture Biotype 2 Methicillin-Resis tant Staphylococcus aureus(AA) CATHI 12/10/2024 3:50 PM EDT [facility] Comment: The organism value for this result has been updated. These results have been appended to the previously preliminary verified report. Edited result: Previously reported as Staphylococcus aureus on 12/05/2024 at 1429 EDT. Staphylococcus aureus has been updated to reportable. Culture Achromobacter denitrificans(A) CATHI 12/10/2024 3:50 PM EDT [facility] Comment: This result was determined by MALDI tof Mass spectrometry. This assay was developed and its performance characteristics determined by [facility] as appropriate for clinical purposes. [...] 10 Epithelial cells/LPF(A) 12/10/2024 3:50 PM EDT [facility] Gram Stain Result Greater than 25 WBC/LPF(A) 12/10/2024 3:50 PM EDT [facility] Gram Stain Result Numerous Gram positive cocci in clusters(A) 12/10/2024 3:50 PM EDT [facility] Gram Stain Result Moderate Gram positive rods(A) 12/10/2024 3:50 PM EDT [facility] Gram Stain Result Rare Budding yeast(A) 12/10/2024 3:50 PM EDT [facility] Sputum Topography unknown / Unknown [...] MICROBIOLOGY - GENERAL ORD ERABLES Final Result [facility] [address] [place] [address] * (ABNORMAL) Pulmonary function testing (12/03/2024 3:42 PM EDT) ANI5UQO 2.04 1.99 - 3.64 L VYAIRE PFT FVC PRED 2.81 VYAIRE PFT FVC LLN 1.99 VYAIRE PFT FVCPREZSCORE -1.54 VYAIRE PFT FVCPRE%PRED 73 % % VYAIRE PFT FVC PREDAUT US_Quanjer GLI (2011) VYAIRE PFT FVC Z-SCORE -1.54 VYAIRE PFT FEV1 PRE 1.43(A) 1.44 - 2.80 L VYAIRE PFT FEV1 PRED 2.15 VYAIRE PFT FEV1 LLN 1.44 VYAIRE PFT [id number] -1.67 VYAIRE PFT FEV1_Pre%Pred 66 % % VYAIRE PFT FEV1 PREDAUTH US_Quanjer GLI (2011) VYAIRE PFT FEV1 Z-SCORE -1.67 VYAIRE PFT FEV1/FVC PRE 70.10 62.93 - 89.29 % VYAIRE PFT CVU3UTFNDIJ 77 VYAIRE PFT CGS2PGZIEX 63 VYAIRE PFT YYK2XNCCHJOUUFFW -0.82 VYAIRE PFT WDK0PUFRSA%PRED 91 % % VYAIRE PFT CSQ0MTEHZFOM US_Quanjer GLI (2011) VYAIRE PFT KQW5UHGDGKOYT -1 VYAIRE PFT BOQ40-23% PRE 0.89 0.54 - 3.41 L/s VYAIRE PFT OTS78-09%_Pred 1.67 VYAIRE PFT DIO0306%LLN 0.54 VYAIRE PFT JXG0343%PREZSCORE -1.03 VYAIRE PFT YUU5536%PRE%PRED 54 % % VYAIRE PFT SNL4855%PREDAUTGALLUP INDIAN MEDICAL CENTER_Quanjer GLI (2011) VYAIRE PFT PEF PRE 3.99(A) 4.25 - 8.75 L/s VYAIRE PFT PEF PRED 6.50 VYAIRE PFT PEF LLN 4.25 VYAIRE PFT PEFPREZSCORE -1.83 VYAIRE PFT PEFPRE%PRED 61 % % VYAIRE PFT PEF PREDAUT NHANES III (1998) VYAIRE PFT JLYXLGJVMKRHXCZH9GH E 10.95(A) 15.45 - 28.11 ml/(min* mmHg) VYAIRE PFT DLCOSINGLEBREATH PRED 21.21 VYAIRE PFT DLCOSINGLEBREATH LLN 15.45 VYAIRE PFT DLCOSINGLEBREATH Z-SCORE -3.21 VYAIRE PFT DLCOSINGLEBREATH % PRED 51.6 % VYAIRE PFT DLCOSINGLEBREATH PREDSalt [facility] TLCO GLI (2019) VYAIRE PFT DLCOSINGLEBREATH Z-SCORE -3.21 12/03/2024 3:42 PM EDT VYAIRE PFT SROCTF6UWK 3.21 3.00 - 5.28 ml/(min* mmHg*L) VYAIRE PFT DLCOVAPRED 4.09 VYAIRE PFT DLCOVALLN 3.00 VYAIRE PFT DLCOVAZSCORE -1.31 VYAIRE PFT DLCOVA%PRED 78.5 % VYAIRE PFT DLCOVAPREDAUTBayhealth Hospital, Kent Campusvic TLCO GLI (2019) VYAIRE PFT DLCOVAZSCORE -1.31 12/03/2024 3:42 PM EDT VYAIRE PFT OHAIDKVTUVWRSL5UCW 3.41(A) 4.19 - 6.32 L VYAIRE PFT VASINGLEBREATH PRED 5.22 VYAIRE PFT VASINGLEBREATH LLN 4.19 VYAIRE PFT VASINGLEBREATH Z-SCORE -3.00 VYAIRE PFT VASINGLEBREATH % PRED 65.4 % VYAIRE PFT VASINGLEBREATH PREDECU Health Medical Centervic TLCO GLI (2019) VYAIRE PFT VASINGLEBREATH Z-SCORE -3.00 12/03/2024 3:42 PM EDT VYAIRE PFT JGHTRRMWMSKFFRC9PXZ 2.06 1.99 - 3.64 L VYAIRE PFT IVCSINGLEBREATH PRED 2.81 VYAIRE PFT IVCSINGLEBREATH LLN 1.99 VYAIRE PFT IVCSINGLEBREATH Z-SCORE -1.51 VYAIRE PFT IVCSINGLEBREATH % PRED 73.3 % VYAIRE PFT IVCSINGLEBREATH PREDEAST[facility] US_Quanjer GLI (2011) VYAIRE PFT WILLIAM% VCMAX PRE 94.82 % VYAIRE PFT TLC SB PRE 3.54(A) 4.61 - 7.17 L VYAIRE PFT TLCSINGLEBREATH PRED 5.88 VYAIRE PFT TLCSINGLEBREATH LLN 4.61 VYAIRE PFT TLCSINGLEBREATH Z-SCORE -3.05 VYAIRE PFT TLCSINGLEBREATH % PRED 60.2 % VYAIRE PFT TLCSINGLEBREATH PREDCharles [facility] Hospital Lung volumes GLI (2019)__ VYAIRE PFT HAH5EUP 4.81 4.61 - 7.17 L VYAIRE PFT TLCPRED 5.88 VYAIRE PFT TLCLLN 4.61 VYAIRE PFT TLCULN 7.17 VYAIRE PFT TLCZSCORE -1.38 VYAIRE PFT TLC%PRED 81.9 % VYAIRE PFT TLCPREDAUTPromedica Defiance [facility] Hospital Lung volumes GLI (2019)__ VYAIRE PFT VC0PRE 2.06 1.99 - 3.64 L VYAIRE PFT VCPRED 2.81 VYAIRE PFT VCLLN 1.99 VYAIRE PFT VCULN 3.64 VYAIRE PFT VCZSCORE -1.51 VYAIRE PFT VC%PRED 73.3 % VYAIRE PFT VCPREDAUTGALLUP INDIAN MEDICAL CENTER_Quanjer GLI (2011) VYAIRE PFT IC0PRE 1.06(A) 1.77 - 3.30 L VYAIRE PFT ICPRED 2.55 VYAIRE PFT ICLLN 1.77 VYAIRE PFT ICULN 3.30 VYAIRE PFT IC Z-SCORE -3.04 VYAIRE PFT IC%PRED 41.7 % VYAIRE PFT ICPREDAUTPromedica Defiance Regional Hospital Lung volumes GLI (2019)__ VYAIRE PFT OWEJNQHO5XWC 3.75 2.20 - 4.35 L VYAIRE PFT FRCPLETH PRED 3.16 VYAIRE PFT FRCPLETH LLN 2.20 VYAIRE PFT FRCPLETH ULN 4.35 VYAIRE PFT FRCPLETH Z-SCORE 0.86 VYAIRE PFT FRCPLETH % PRED 118.8 % VYAIRE PFT FRCPLETH PREDAUTPromedica Defiance Regional Hospital Lung volumes GLI (2019)__ VYAIRE PFT GOM6DFL 0.99 0.27 - 1.92 L VYAIRE PFT ERVPRED 0.93 VYAIRE PFT ERVLLN 0.27 VYAIRE PFT ERVULN 1.92 VYAIRE PFT ERV Z-SCORE 0.13 VYAIRE PFT ERV%PRED 106.9 % VYAIRE PFT ERVPREDAUTPromedica Defiance Regional Hospital Lung volumes GLI (2019)__ VYAIRE PFT RV0PRE 2.75 1.27 - 3.39 L VYAIRE PFT RVPRED 2.23 VYAIRE PFT RVLLN 1.27 VYAIRE PFT RVULN 3.39 VYAIRE PFT RVZSCORE 0.78 VYAIRE PFT RV%PRED 123.6 % VYAIRE PFT RVPREDAUTPromedica Defiance Regional Hospital Lung volumes GLI (2019)__ VYAIRE PFT RV%HXI7TXF 57.25(A) 25.79 - 51.08 % VYAIRE PFT [...] underwent pulmonary function testing today at the [facility]. The patient underwent spirometry, lung volumes [...] Antibody Negative Negative 08/03/2024 8:56 AM EDT [facility] Blood Venous blood specimen / Unknown Venipuncture / Unknown 08/03/2024 7:56 AM EDT 08/03/2024 8:16 AM EDT Chetan Jose MD LAB BLOOD ORDERABLES Final Re sult [facility] [address] [place] [address] * (ABNORMAL) Hemoglobin A1c (07/26/2024 1:22 AM EDT) Hemoglobin A1c 5.9(H) <5.7 % 07/26/2024 11:08 AM EDT [facility] Blood Venous blood specimen / Unknown Venipuncture / Unknown 07/26/2024 1:22 AM EDT 07/26/2024 1:45 AM EDT Narrative [facility] - 07/26/2024 11:08 AM EDT HA1C Interpretive Data: Diagnosis of Diabetes: Diabetic > or = 6.5% Pre-diabetic 5.7 to 6.4% Non-diabetic < or = 5.6% Glycemic Targets for Type I and Type II Diabetics: Non- Adults <7.0% Adults <6.0% Children and Adolescents <7.5% Source: [place] [employer]. Standards of medical care in diabetes,2017. Diabetes Care.2017:40 (suppl 1):S1-S135. HbA1c assay performed by an ion-exchange chromatography method that is certified traceable to the DCCT. us Deloris San DO LAB BLOOD ORDERABLES Final Result Performing Organization Address [facility] Co de Phone Number [facility] [address] [place] [address] * Dexa Bone Density (02/24/2023 12:42 PM [...] the non-dominant forearm was performed using a [employer] Horizon A Dual- energy X-ray Absorptiometry (DXA) [...] the non-dominant forearm was performed using a [employer] A Dual- energy X-ray Absorptiometry (DXA) scanner (software [id number]). COMPARISON/CORRELATION: No comparison. No recent correlative imaging. [...] MTB Rule-Out 07/28/2024 07/28/2024 [place] [address] Advance Directives * Full Code (Latest Code Status on File) Date Activated Date Inactivated Comments 07/20/2024 11:49 PM 08/01/2024 4:29 PM Care Teams Yarn Spooler Relationship Specialty Start Date End Date Damian Saini MD [address] [place] [address] [place] [address] PCP - General 09/12/20
--- OUTSIDE RECORDS SUMMARY | 2024-12-12 14:13 | XMS_ITS | Encounter Summary ---
Author Organization Healthcare Address [address] [place] [address] Care Team Providers Care Medical Staff Manager Name Role Phone Damian Saini MD Primary Care Provider [phone] Encounter Details Date Type Department Care Team [...] time in the past 12 m [facility], were you homeless or living in a prison (including now)? No 08/02/2024 Utilities Answer Date Recorded In the past 12 months has th e [employer], gas, oil, or water company threatened to [...] 12:40 PM EDT Appointment [facility] [address]nd [place] [address] 12/13/2024 2:45 PM EDT Clinical Support [facility] [address] [place] [address] 12/13/2024 3:00 PM EDT Office Visit [facility] [address] [place] [address] Nia Johnson, HOTEL OR MOTEL ROOM SERVICE SUPERVISOR [address] [facility] [address] [place] [address] 12/21/2024 2:30 PM EDT Office Visit Pav [facility] [address] [facility], 2nd [place] [address] Rishi Deluca, PA [address] [place] [address] 03/11/2025 11:40 AM EST Office Visit Professional [facility] [address] [facility], [address] [place] [address] Nikko Morfin MD [address] [facility] [address] [place] [address] documented as of this encounter [...] documented as of this encounter Care Teams Medical Staff Manager Relationship Specialty Start Date End Date Damian Saini MD [address] [place] [address] PCP - General 09/12/20 documented as of this encounter
--- OUTSIDE RECORDS SUMMARY | 2024-12-12 14:13 | XMS_ITS | Encounter Summary ---
Author Organization Healthcare Address [address] [place] [address] Care Team Providers Care Narrow Fabric Loom Fixer Name Role Phone Damian Saini MD Primary Care Provider [phone] Encounter Details Date Type Department Care Team ([facility] Contact Info) Description 11/28/2024 Telephone [facility] [address], [address]nd [place] [address] Rishi Deluca, PA [address] [place] [address] Social History Tobacco Use Types [...] in the past 12 m [facility], were you homeless or living in a [...] optimal time of day to reach caller:Ralph [phone] Note: Please do not reply to this message. Follow-up communication and further actions as a result of this message need to be communicated with the patient directly, if the patient is not active onMyChart. If the patient is active on MyChart, they will receive notification of the communication/outcome via [employer]. documented in this encounter Plan of Treatment Upcoming Encounters Date Type Department Care Team ([facility] st Contact Info) Description 12/13/2024 12:40 PM EDT Appointment [facility] [address], [address]nd [place] [address] 12/13/2024 2:45 PM EDT Clinical Support [facility] [address] [place] [address] 12/13/2024 3:00 PM EDT Office Visit [facility] [address] [place] [address] Nia Johnson R, SUPERVISOR CAR INSTALLATIONS [address] [facility] [address] [place] [address] 12/21/2024 2:30 PM EDT Office Visit [facility] [address] [facility], 2nd [place] [address] Rishi Deluca, PA [address] [facility] [address] [place] [address] 03/11/2025 11:40 AM EST Office Visit Professional [facility] [address] [facility], [address] [place] [address] Nikko Morfin MD [address] [place] [address] documented as of this encounter [...] documented as of this encounter Care Teams Narrow Fabric Loom Fixer Relationship Specialty Start Date End Date Damian Saini MD [address] [place] [address] PCP - General 09/12/20 documented as of this encounter
--- OUTSIDE RECORDS SUMMARY | 2024-12-12 14:13 | XMS_ITS ---
Author Organization Healthcare Address [address] [place] [address] Care Team Providers Care Routeman Name Role Phone Damian Saini MD Primary Care Provider [phone] Active Problems Problem Noted Date Diagnosed Date [...]
== END 2024-12-12 23:59 | disposition home or self-care (01) ==
LOC: LAB 14:00
PROVIDERS: PCP Family Medicine; Visit Provider Student in an Organized Health Care Education/Training Program
DX: J47.9 Bronchiectasis, uncomplicated (principal)
CPT/HCPCS: 87101; 87116

== ENCOUNTER 2024-12-13 10:51 | Outpatient (CLI) | payer BC, SELFPAY ==
--- OUTSIDE RECORDS SUMMARY | 2024-12-03 13:30 | XMS_ITS | Encounter Summary ---
Author Organization Healthcare Address [address] [place] [address] Care Team Providers Care Bilingual Trainer Name Role Phone Damian Saini MD Primary Care Provider [phone] Encounter Details Date Type Department Care Team (Latest Contact Info) Description 12/03/2024 1:30 PM EDT Ancillary Procedure Professional [facility] [address], [address] [place] [address] Bronchiectasis without complication (CMS/HCC) Social [...] any time in the past 12 m [facility], were you homeless or living in a detention (including now)? No 08/02/2024 Utilities Answer Date [...] Info) Description 12/13/2024 12:40 PM EDT Appointment [facility] [address] [place] [address] 12/13/2024 2:45 PM EDT Clinical Support [facility] [address] [place] [address] 12/13/2024 3:00 PM EDT Office Visit [facility] [address] [place] [address] Nia Johnson, TELEGRAPH INSTALLER [address] [facility] [address] [place] [address] 12/21/2024 2:30 PM EDT Office Visit [facility] [address] [facility], [address] [place] [address] Rishi Deluca, PA [address] [place] [address] 03/11/2025 11:40 AM EST Office Visit [facility] [address], [address] [place] [address] Nikko Morfin MD [address] [place] [address] documented as of this encounter Procedures Procedure Name Priority Date/Time Associated Diagnosis Comments HC DIFFUSING CAPACITY - CARBON MONOXIDE DIFFUSING CAPACITY Routine 12/03/2024 3:42 PM EDT Bronchiectasis without complication (CMS/HCC) documented in this encounter Results * (ABNORMAL) Pulmonary function testing (12/03/2024 3:42 PM EDT) ZUQ2DVK 2.04 1.99 - 3.64 L VYAIRE PFT FVC PRED 2.81 VYAIRE PFT FVC LLN 1.99 VYAIRE PFT FVCPREZSCORE -1.54 VYAIRE PFT FVCPRE%PRED 73 % % VYAIRE PFT FVC [facility] [place] (2011[place] VYAIRE PFT FVC Z-SCORE -1.54 VYAIRE PFT FEV1 PRE 1.43(A) 1.44 - 2.80 L VYAIRE PFT FEV1 PRED 2.15 VYAIRE PFT FEV1 LLN 1.44 VYAIRE PFT CFT0OQQAROZJB -1.67 VYAIRE PFT FEV1_Pre%Pred 66 % % VYAIRE PFT FEV1 [facility] [place] (2011) VYAIRE PFT FEV1 Z-SCORE -1.67 VYAIRE PFT FEV1/FVC PRE 70.10 62.93 - 89.29 % VYAIRE PFT TOT6SFSXYSO 77 VYAIRE PFT FKF7XTZKJS 63 VYAIRE PFT MSL4KYNYIVXLQFNE -0.82 VYAIRE PFT MDJ8HOEJND%PRED 91 % % VYAIRE PFT RKF7CLQCPCKS [facility] (2011) VYAIRE PFT INH1WTHQPYABF -1 VYAIRE PFT QEI06-46% PRE 0.89 0.54 - 3.41 L/s VYAIRE PFT JOF07-08%_Pred 1.67 VYAIRE PFT CEP4993%LLN 0.54 VYAIRE PFT QRA9576%PREZSCORE -1.03 VYAIRE PFT OMO0558%PRE%PRED 54 % % VYAIRE PFT KZM2701%[facility]ED[facility] [place] (2011) VYAIRE PFT PEF PRE 3.99(A) 4.25 - 8.75 L/s VYAIRE PFT PEF PRED 6.50 VYAIRE PFT PEF LLN 4.25 VYAIRE PFT PEFPREZSCORE -1.83 VYAIRE PFT PEFPRE%PRED 61 % % VYAIRE PFT [facility]F [facility] (1998) VYAIRE PFT OKFKEJAUCMBJPULH6LE E 10.95(A) 15.45 - 28.11 ml/(min* mmHg) VYAIRE PFT DLCOSINGLEBREATH PRED 21.21 VYAIRE PFT DLCOSINGLEBREATH LLN 15.45 VYAIRE PFT DLCOSINGLEBREATH Z-SCORE -3.21 VYAIRE PFT DLCOSINGLEBREATH % PRED 51.6 % VYAIRE PFT DLCOSINGLEBREATH PREDLOS [facility] Stanojevic TLCO GLI (2019) VYAIRE PFT DLCOSINGLEBREATH Z-SCORE -3.21 12/03/2024 3:42 PM EDT VYAIRE PFT RIWGGA7ONL 3.21 3.00 - 5.28 ml/(min* mmHg*L) VYAIRE PFT DLCOVAPRED 4.09 VYAIRE PFT DLCOVALLN 3.00 VYAIRE PFT DLCOVAZSCORE -1.31 VYAIRE PFT DLCOVA%PRED 78.5 % VYAIRE PFT DLCOVAPREDAUT Stanojev[facility] TLCO GLI (2019) VYAIRE PFT DLCOVAZSCORE -1.31 12/03/2024 3:42 PM EDT VYAIRE PFT LJREITRRYTPSBY4CGR 3.41(A) 4.19 - 6.32 L VYAIRE PFT VASINGLEBREATH PRED 5.22 VYAIRE PFT VASINGLEBREATH LLN 4.19 VYAIRE PFT VASINGLEBREATH Z-SCORE -3.00 VYAIRE PFT VASINGLEBREATH % PRED 65.4 % VYAIRE PFT VASINGLEBREATH PREDL[facility] Stanojevic TLCO GLI (2019) VYAIRE PFT VASINGLEBREATH Z-SCORE -3.00 12/03/2024 3:42 PM EDT VYAIRE PFT HRCCSYYNAWMQPAD9MRY 2.06 1.99 - 3.64 L VYAIRE PFT [...] % PRED 60.2 % VYAIRE PFT TLCSINGLEBREATH PREDLahey [facility] & Medical [facility] Lung volumes GLI (2019)__ VYAIRE PFT VZA8KJC 4.81 4.61 - 7.17 L VYAIRE PFT TLCPRED 5.88 VYAIRE PFT TLCLLN 4.61 VYAIRE PFT TLCULN 7.17 VYAIRE PFT TLCZSCORE -1.38 VYAIRE PFT TLC%PRED 81.9 % VYAIRE PFT TLCPREDLahey [facility] & Medical [facility] Lung volumes GLI (2019)__ VYAIRE PFT VC0PRE [...] VYAIRE PFT IC%PRED 41.7 % V[facility]AIRE PFT ICPREDAUTHigh[facility] Lung volumes GLI (2019)__ VYAIRE PFT MJTCNPNC0PHG 3.75 2.20 - 4.35 L VYAIRE PFT FRCPLETH PRED 3.16 VYAIRE PFT FRCPLETH LLN 2.20 VYAIRE PFT FRCPLETH ULN 4.35 VYAIRE PFT FRCPLETH Z-SCORE 0.86 VYAIRE PFT FRCPLETH % PRED 118.8 % VYAIRE PFT FRCPLETH PREDLahey Hospital & Medical Center Lung volumes GLI (2019)__ VYAIRE PFT AYR2UDP 0.99 0.27 - 1.92 L VYAIRE PFT [...] Nguyễn Lung volumes GLI (2019)__ VYAIRE PFT RV%TBD8PVP 57.25(A) 25.79 - 51.08 % VYAIRE PFT [...] underwent pulmonary function testing today at the [facility]. The patient underwent spirometry, lung volumes by [...] documented as of this encounter Care Teams Bilingual Trainer Relationship Specialty Start Date End Date Damian Saini MD [address] [place] [address] PCP - General 09/12/20 documented as of this encounter
--- OUTSIDE RECORDS SUMMARY | 2024-12-03 15:00 | XMS_ITS | Encounter Summary ---
Author Organization Healthcare Address [address] [place] [address] Care Team Providers Care Cage Clerk Name Role Phone Daiman Saini MD Primary Care Provider [phone] Reason for Referral * Consultation (Routine) - Authorized Specialty Diagnoses / Procedures Referred By Marco Antonio lee Referred To Contact Diagnoses Bronchiectasis without complication (CMS/HCC) Nikko Morfin MD [address] [address] Phone: tel: fax: Referral ID Status Reason Start Date Expiration Date V isits Requested Visits Authorized [id number] Authorized 12/03/2024 06/04/2026 1 1 Reason for Visit * Reason Comments Follow-up * Consultation (Routine) - Closed Specialty Diagnoses / Procedures Referred By Marco Antonio lee Referred To Contact Diagnoses Bronchiectasis without complication (CMS/HCC) Nikko Morfin MD [address] [address] Phone: tel: fax: Referral ID Status Reason Start Date Expiration Date Visits Re quested Visits Authorized [id number] Closed 08/30/2024 03/01/2026 1 1 Encounter Details Date Type Department Care Team (Latest Contact Info) Description 12/03/2024 3:00 PM EDT Office Visit [facility] [address] [place] [address] Nikko Morfin MD [address] [place] [address] Bronchiectasis without complication (CMS/HCC) (Primary [...] any time in the past [address] [facility], were you homeless or living in a fci (including now)? No 08/02/2024 Utilities Answer Date Recorded In the past 12 months has th e [employer], gas, oil, or water [employer] threatened to shut off services in your [...] Influenza, high-dose, quadrivalent 05/23/2023 Moderna COVID-19 Vaccine (Crown Presser) 12+ years 06/11/2020, 07/09/2020, 03/11/2021 Pneumococcal 20-kel [...] Aspergillus IgE negative CF negative Sputum from [facility] negative for AFB Impression: Bronchiectasis Fibrotic Lung [...] recurrent aspiration - sputum AFB x3 - [facility] - sputum gram stain and culture -[facility] - CF sputum today - flutter [...] Info) Description 12/13/2024 12:[address] [facility] [address] [place] [address] 12/13/2024 2:45 PM EDT Clinical Support [facility] Multidisciplinary Oncology Clinic [address] [place] [phone] 12/13/2024 3:00 PM EDT Office Visit [facility]cology [facility] [address] [place] [address] Nia Johnson APRN [address] [facility] [address] [place] [address] 12/21/2024 2:30 PM EDT Office Visit [facility] Res[facility] [address] [facility], 2nd [place] [address] Rishi Deluca, MAURICIO [address] [facility] [address] [place] [address] 03/11/2025 11:40 AM EST Office Visit [facility] [address] [facility], [address] [place] [address] Nikko Morfin MD [address] [place] [address] Scheduled Orders Name Type Priority Associated Diagnoses Orde r Schedule Respiratory Culture and Gram Stain Microbiology Routine Bronchiectasis without complication ([facility]/HCC) Expected: 12/03/2024 (Approximate), Expires: 06/06/2026 AFB Culture, [...] 12/03/2024 3:43 PM EDT Bronchiectasis without complication ([facility]) documented in this encounter Results * (ABNORMAL) Cystic Fibrosis Respiratory Culture and Gram Stain (12/03/2024 3:43 PM EDT) Culture Heavy Growth 12/10/2024 3:50 PM EDT [facility] Culture Biotype 1 Methicillin-Resis tant Staphylococcus aureus(AA) CATHI 12/10/2024 3:50 PM EDT [facility] Comment: The organism value for this result has been updated. These results have been appended to the previously preliminary verified report. Edited result: Previously reported as Staphylococcus aureus on 12/05/2024 at 1429 EDT. Staphylococcus aureus has been updated to reportable. Culture Biotype 2 Methicillin-Resis tant Staphylococcus aureus(AA) CATHI 12/10/2024 3:50 PM EDT [facility] Comment: The organism value for this result has been updated. These results have been appended to the previously preliminary verified report. Edited result: Previously reported as Staphylococcus aureus on 12/05/2024 at 1429 EDT. Staphylococcus aureus has been updated to reportable. Culture Achromobacter denitrificans(A) CATHI 12/10/2024 3:50 PM EDT [facility] Comment: This result was determined by MALDI tof Mass spectrometry. This assay was developed and its performance characteristics determined by [facility] as appropriate for clinical purposes. [...] 10 Epithelial cells/LPF(A) 12/10/2024 3:50 PM EDT [facility] Gram Stain Result Greater than 25 WBC/LPF(A) 12/10/2024 3:50 PM EDT [facility] Gram Stain Result Numerous Gram positive cocci in clusters(A) 12/10/2024 3:50 PM EDT [facility] Gram Stain Result Moderate Gram positive rods(A) 12/10/2024 3:50 PM EDT [facility] Gram Stain Result Rare Budding yeast(A) 12/10/2024 3:50 PM EDT [facility] Sputum Topography unknown / Unknown Non-blood [...] MICROBIOLOGY - GENERAL ORD ERABLES Final Result [facility] [address] [place] [address] documented in this encounter Visit Diagnoses Diagnosis [...] documented as of this encounter Care Teams Cage Clerk Relationship Specialty Start Date End Date Damian Saini MD [address] [place] [address] PCP - General 09/12/20 documented as of this encounter
--- OUTSIDE RECORDS SUMMARY | 2024-12-13 10:56 | XMS_ITS | Encounter Summary ---
Author Organization [facility] ystem Address [address] [place] [id number] Care Team Providers Care Ship/Rec/Doc Control Name Role Phone Damian Saini MD Primary Care Provider + Encounter Details Date Type Department Care Team (Late st Contact Info) Description 07/11/2024 Results Follow-Up [facility] [address] [facility] [place] [address] Damian Saini MD [address] [facility] [place] [address] Social History Tobacco Use Types [...] on filedocumented in this encounter Care Teams Ship/Rec/Doc Control Relationship Specialty Start Date End Date Damian Saini MD [address] [place] [address] PCP - General Family Medicine 05/23/23 documented as of this encounter
--- OUTSIDE RECORDS SUMMARY | 2024-12-13 10:56 | XMS_ITS | Encounter Summary ---
Author Organization Healthcare Address [address] [place] [address] Care Team Providers Care Unemployment Examiner Name Role Phone Damian Saini MD Primary Care Provider [phone] Reason for Visit * Reason Onset Date Comments Med Refill 12/06/2024 Encounter Details Date Type Department Care Team (Late st Contact Info) Description 12/06/2024 [facility]ill [facility] [address], [address]nd [place] [address] Nikko Morfin MD [address] [place] [address] Bronchiectasis without complication (CMS/HCC) (Primary [...] any time in the past 12 m [facility], were you homeless or living in a nursing home (including now)? No 08/02/2024 Utilities Answer Date Recorded In the past 12 months has th e [employer], gas, oil, or water [employer] threatened to shut off services in your [...] Info) Description 12/13/2024 12:40 PM EDT Appointment [facility] [address]nd [place] [address] 12/13/2024 2:45 PM EDT Clinical Support [facility] [address] [place] [address] 12/13/2024 3:00 PM EDT Office Visit [facility] [address] [place] [address] Nia Johnson, CHECK PROCESSOR 800 [facility] [address] [place] [address] 12/21/2024 2:30 PM EDT Office Visit [facility] [address] [facility], 2nd [place] [address] Rishi Deluca, PA [address] [place] [address] 03/11/2025 11:40 AM EST Office Visit Professional [facility] [address] [facility], [address] [place] [address] Nikko Morfin MD [address] [facility] [address] [place] [address] documented as of this encounter [...] documented as of this encounter Care Teams Unemployment Examiner Relationship Specialty Start Date End Date Damian Saini MD [address] [place] [address] PCP - General 09/12/20 documented as of this encounter
--- OUTSIDE RECORDS SUMMARY | 2024-12-13 10:56 | XMS_ITS | Encounter Summary ---
Author Organization [facility] ystem Address [address] [place] [id number] Care Team Providers Care Chisel Mortiser Operator Name Role Phone Damian Saini MD Primary Care Provider + Encounter Details Date Type Department Care Team (Late st Contact Info) Description 07/12/2024 Results Follow-Up [facility] [address] [facility] [place] [phone] Damian Saini MD [address] [facility] [place] [address] Social History Tobacco Use Types [...] on filedocumented in this encounter Care Teams Chisel Mortiser Operator Relationship Specialty Start Date End Date Damian Saini MD [address] [address] PCP - General Family Medicine 05/23/23 documented as of this encounter
--- OUTSIDE RECORDS SUMMARY | 2024-12-13 10:57 | XMS_ITS | Encounter Summary ---
Author Organization Healthcare Address [address] [place] [address] Care Team Providers Care Director Of Corporate Communications Name Role Phone Damian Saini MD Primary Care Provider [phone] Encounter Details Date Type Department Care Team ([facility] Contact Info) Description 11/28/2024 Telephone [facility] [address] 2nd [place] [address] Rishi Deluca, PA [address] [place] [address] Social History Tobacco Use Types [...] time in the past [address] [facility], were you homeless or living [...] optimal time of day to reach caller:Ralph [phone] Note: Please do not reply to this message. Follow-up communication and further actions as a result of this message need to be communicated with the patient directly, if the patient is not active onMyChart. If the patient is active on MyChart, they will receive notification of the communication/outcome via [employer]. documented in this encounter Plan of Treatment Upcoming Encounters Date Type Department Care Team ([facility] st Contact Info) Description 12/13/2024 12:40 PM EDT Appointment [facility] [address], [address]nd [place] [address] 12/13/2024 2:45 PM EDT Clinical Support [facility] [address] [place] [address] 12/13/2024 3:00 PM EDT Office Visit [facility] [address] [place] [address] Nia Johnson R, EARTH SCIENCE TEACHER [address] [facility] [address] [place] [address] 12/21/2024 2:30 PM EDT Office Visit [facility] [address] [facility], 2nd [place] [address] Rishi Deluca, PA [address] [facility] [address] [place] [address] 03/11/2025 11:40 AM EST Office Visit Professional [facility] [address] [facility], [address] [place] [address] Nikko Morfin MD [address] [place] [address] documented as of this encounter [...] documented as of this encounter Care Teams Director Of Corporate Communications Relationship Specialty Start Date End Date Damian Saini MD [address] [place] [address] PCP - General 09/12/20 documented as of this encounter
--- OUTSIDE RECORDS SUMMARY | 2024-12-13 10:57 | XMS_ITS | Clinical Summary ---
Author Organization [facility] yste Address [address] [place] [address] Care Team Providers Care Marsh Buggy Operator Name Role Phone Damian Saini MD [...] Description 09/20/2024 12:15 PM EDT Office Visit [facility] [address] [place] [address] Damian Saini MD Contusion of [...] 1206/2015 HEPATITIS C SCREENING Completed 08/03/[address] [facility] [employer] PPO Care Teams Marsh Buggy Operator Relationship Specialty Start Date End Date Damian Saini MD [address] [facility] [address] [place] [address] PCP - General Family Medicine 05/23/23
--- OUTSIDE RECORDS SUMMARY | 2024-12-13 10:57 | XMS_ITS ---
Author Organization Healthcare Address [address] [place] [address] Care Team Providers Care Registration Coordinator Name Role Phone Damian Saini MD Primary Care Provider [phone] Active Problems Problem Noted Date Diagnosed Date [...]
--- OUTSIDE RECORDS SUMMARY | 2024-12-13 10:57 | XMS_ITS | Encounter Summary ---
Author Organization Healthcare Address [address] [place] [address] Care Team Providers Care Yard Brakeman Name Role Phone Damian Saini MD Primary Care Provider Encounter Details Date Type Department Care Team ([facility] st Contact Info) Description 10/26/2024 Telephone [facility] [address], [address]nd [place] [address] Nikko Morfin MD [address] [facility] [address] [place] [address] Social History Tobacco Use Types [...] were you homeless or living in a correction (including now)? No 08/02/2024 Utilities Answer Date [...] sureif he needs one Best contact number: [phone] Optimal time of day to reach caller: ANYTIME Additional comments/information from caller: None Note: Please do not reply to this message. Follow-up communication and further actions as a result of this message need to be communicated with the patient directly, if the patient is not active onMyChart. If the patient is active on MyChart, they will receive notification of the communication/outcome via [employer] documented in this encounter Plan of Treatment Upcoming Encounters Date Type Department Care Team ([facility] Contact Info) Description 12/13/2024 12:40 PM EDT [facility]ointment [facility] [address]nd [place] [address] 12/13/2024 2:45 PM EDT Clinical Support [facility] [address] [place] [address] 12/13/2024 3:00 PM EDT Office Visit [facility] [address] [place] [phone] Nia Johnson, CHILD CARE SPECIALIST [address] [facility] Bridgette Max [facility] [address] [place] [address] 12/21/2024 2:30 PM EDT Office Visit [facility] [address] [facility], 2nd [place] [address] Rishi Deluca, PA [address] [place] [address] 03/11/2025 11:40 AM EST [facility] [address] [facility], [address] [place] [address] Nikko Morfin MD [address] [place] [address] documented as of this encounter Visit Diagnoses [...] documented as of this encounter Care Teams Yard Brakeman Relationship Specialty Start Date End Date Damian Saini MD [address] [place] [address] PCP - General 09/12/20 documented as of this encounter
--- OUTSIDE RECORDS SUMMARY | 2024-12-13 10:57 | XMS_ITS | Encounter Summary ---
Author Organization Healthcare Address [address] [place] [address] Care Team Providers Care Kitchen Assistant Name Role Phone Damian Saini MD Primary Care Provider [phone] Encounter Details Date Type Department Care Team (Late st Contact Info) Description 11/23/2024 Telephone [facility] Adult [facility]istry [address] [place] [address] None, None [address] [place], [place] [id number] Social History Tobacco Use Types Packs/Day Years [...] any time in the past 12 m [facility], were you homeless or living in [...] 12/13/2024 12:40 PM EDT Appointment [facility] [address]nd [place] [address] 12/13/2024 2:45 PM EDT Clinical Support [facility] [address] [place] [address] 12/13/2024 3:00 PM EDT Office Visit [facility] [address] [place] [address] Nia Johnson, SENIOR SALESFORCE DEVELOPER [address] [facility] [address] [place] [address] 12/21/2024 2:30 PM EDT Office Visit [facility] Res[facility] [address] [facility], 2nd [place] [address] Rishi Deluca, PA [address] [place] [address] 03/11/2025 11:40 AM EST Office Visit [facility] [address] [facility], [address] [place] [address] Nikko Morfin MD [address] [facility] [address] [place] [address] documented as of this encounter [...] documented as of this encounter Care Teams Kitchen Assistant Relationship Specialty Start Date End Date Damian Saini MD [address] [place] [address] PCP - General 09/12/20 documented as of this encounter
--- OUTSIDE RECORDS SUMMARY | 2024-12-13 10:57 | XMS_ITS | Encounter Summary ---
Author Organization Healthcare Address [address] [place] [address] Care Team Providers Care Tallier Name Role Phone Damian Saini MD Primary Care Provider [phone] Encounter Details Date Type Department Care Team [...] any time in the past 12 m [facility], were you homeless or living in a penitentiary (including now)? No 08/02/2024 Utilities Answer Date Recorded In the past 12 months has th e Valuation App, gas, oil, or water company threatened to [...] Info) Description 12/13/2024 12:40 PM EDT Appointment [facility] [address]nd [place] [address] 12/13/2024 2:45 PM EDT Clinical Support [facility] [address] [place] [address] 12/13/2024 3:00 PM EDT Office Visit [facility] [address] [place] [address] Nia Johnson, BACCARAT DEALER [address] [facility] Bridget[address] [place] [address] 12/21/2024 2:30 PM EDT Office Visit [facility] [address] [facility], 2nd [place] [address] Rishi Deluca, PA [address] [place] [address] 03/11/2025 11:40 AM EST Office Visit Professional [facility] [address] [facility], [address] [place] [address] Nikko Morfin MD [address] [facility] [address]rd [address] [place] [address] documented as of this encounter [...] documented as of this encounter Care Teams Tallier Relationship Specialty Start Date End Date Damian Saini MD [address] [place] [address] PCP - General 09/12/20 documented as of this encounter
--- OUTSIDE RECORDS SUMMARY | 2024-12-13 10:57 | XMS_ITS | Clinical Summary ---
Author Organization Healthcare Address [address] [place] [address] Care Team Providers Care Timber Poisoner Name Role Phone Damian Saini MD Primary Care Provider [phone] Allergies Active Allergy Reactions Criticality Noted Date [...] Department Care Team Description 12/06/[address] [facility] Medicine Specialties [address] [place] [address] Nikko Morfin MD Bronchiectasis without complication ([facility]/HCC) (Primary Dx); Cough, unspecified type; Fibrotic lung diseases (CMS/HCC) 12/03/2024 3:00 PM EDT Office Visit [facility] [address] [facility], [address] [place] [address] Nikko Morfin MD Bronchiectasis without complication ([facility]/HCC) (Primary Dx); Cough, unspecified type; Recurrent aspiration pneumonitis 12/03/2024 1:30 PM EDT Ancillary Procedure [facility] [address] [facility], [address] [place] [address] Bronchiectasis without complication ([facility]/HCC) 12/03/2024 Travel 11/28/2024 Telephone [facility] [address] [facility] 2nd [place] [address] Rishi Deluca PA 11/23/[address] [facility] Adult Dentistry [address] [place] [address] None, None 10/26/[address] [facility] Medicine Specialties [address], [address]nd [place] [address] Nikko Morfin MD 10/02/2024 Telephone [facility] [address] [place] [address] Nia Johnson, ANA LUISA from Last 3 [...] were you homeless or living in a mcc (including now)? No 08/02/2024 Utilities Answer Date [...] Info) Description 12/13/2024 12:40 PM EDT Appointment [facility] [address]nd [place] [address] 12/13/2024 2:45 PM EDT Clinical Support [facility] [address] [place] [address] 12/13/2024 3:00 PM EDT Office Visit [facility] [address] [place] [address] Nia Johnson R, AUTO DESIGN CHECKER [address] [facility] Bridgette [address] [place] [address] 12/21/2024 2:30 PM EDT Office Visit [facility] Res[facility] [address] [facility], 2nd [place] [address] Rishi Deluca S, PA [address] [place] [address] 03/11/2025 11:40 AM EST Office Visit [facility] Care Clinic [address] [facility], [address] [place] [address] Nikko Morfin MD [address] [facility] 3rd Fl [address] [place] [address] Health Maintenance Due Date Last Done Comments [facility]-Infant/Child/Adol SDOH Screenings [address] CT Colonography 1994 Colonoscopy 1994 FIT-DNA 1994 FIT 1994 FOBT 1994 Sigmoidoscopy 1994 [facility]-Colorectal Cancer Screening 1994 [facility]-DTaP,Tdap,and Td Vaccine s (1 - Tdap) 07/04/1996 07/03/1996 [id number] Vaccine ( season) 2024 03/11/2021, 07/09/2020, 06/11/2020 [...] Culture Heavy Growth 12/10/2024 3:50 PM EDT [facility] Culture Biotype 1 Methicillin-Resis tant Staphylococcus aureus(AA) CATHI 12/10/2024 3:50 PM EDT [facility] Comment: The organism value for this result has been updated. These results have been appended to the previously preliminary verified report. Edited result: Previously reported as Staphylococcus aureus on 12/05/2024 at 1429 EDT. Staphylococcus aureus has been updated to reportable. Culture Biotype 2 Methicillin-Resis tant Staphylococcus aureus(AA) CATHI 12/10/2024 3:50 PM EDT [facility] Comment: The organism value for this result has been updated. These results have been appended to the previously preliminary verified report. Edited result: Previously reported as Staphylococcus aureus on 12/05/2024 at 1429 EDT. Staphylococcus aureus has been updated to reportable. Culture Achromobacter denitrificans(A) CATHI 12/10/2024 3:50 PM EDT [facility] Comment: This result was determined by MALDI tof Mass spectrometry. This assay was developed and its performance characteristics determined by [facility] as appropriate for clinical purposes. [...] 10 Epithelial cells/LPF(A) 12/10/2024 3:50 PM EDT [facility] Gram Stain Result Greater than 25 WBC/LPF(A) 12/10/2024 3:50 PM EDT [facility] Gram Stain Result Numerous Gram positive cocci in clusters(A) 12/10/2024 3:50 PM EDT [facility] Gram Stain Result Moderate Gram positive rods(A) 12/10/2024 3:50 PM EDT [facility] Gram Stain Result Rare Budding yeast(A) 12/10/2024 3:50 PM EDT [facility] Sputum Topography unknown / Unknown [...] ug/ml: Resistant Methicillin-Resistant Staphylococcus aureus Penicillin G ACTHI >1 ug/ml: Resistant Methicillin-Resistant Staphylococcus aureus Tetracycline [...] MICROBIOLOGY - GENERAL ORD ERABLES Final Result [facility] [address] [place] [address] * (ABNORMAL) Pulmonary function testing (12/03/2024 3:42 PM EDT) [id number] 2.04 1.99 - 3.64 L VYAIRE PFT FVC PRED 2.81 VYAIRE PFT FVC LLN 1.99 VYAIRE PFT FVCPREZSCORE -1.54 VYAIRE PFT FVCPRE%PRED 73 % % VYAIRE PFT FVC PREDAUT US_Quanjer GLI (2011) VYAIRE PFT FVC Z-SCORE -1.54 VYAIRE PFT FEV1 PRE 1.43(A) 1.44 - 2.80 L VYAIRE PFT FEV1 PRED 2.15 VYAIRE PFT FEV1 LLN 1.44 VYAIRE PFT ICQ2LESUVMXEI -1.67 VYAIRE PFT FEV1_Pre%Pred 66 % % VYAIRE PFT FEV1 PREDAUTH US_Quanjer GLI (2011) VYAIRE PFT FEV1 Z-SCORE -1.67 VYAIRE PFT FEV1/FVC PRE 70.10 62.93 - 89.29 % VYAIRE PFT JEF8SWCWSWG 77 VYAIRE PFT XKO8PGFYST 63 VYAIRE PFT QAA6KUPXMQLYWVYV -0.82 VYAIRE PFT CYQ9TKNEIK%PRED 91 % % VYAIRE PFT KDV2ZNEMACZG US_Quanjer GLI (2011) VYAIRE PFT GCY4XQQKTOSQH -1 VYAIRE PFT KKB28-18% PRE 0.89 0.54 - 3.41 L/s VYAIRE PFT WFM98-18%_Pred 1.67 VYAIRE PFT LAC9120%LLN 0.54 VYAIRE PFT OGT3791%PREZSCORE -1.03 VYAIRE PFT WUZ9623%PRE%PRED 54 % % VYAIRE PFT ATL3601%PREDAUTTU[facility]_Quanjer GLI (2011) VYAIRE PFT PEF PRE 3.99(A) 4.25 - 8.75 L/s VYAIRE PFT PEF PRED 6.50 VYAIRE PFT PEF LLN 4.25 VYAIRE PFT PEFPREZSCORE -1.83 VYAIRE PFT PEFPRE%PRED 61 % % VYAIRE PFT PEF PREDAUT NHANES III (1998) VYAIRE PFT RUTLKEVTMQEFLJKO7MY E 10.95(A) 15.45 - 28.11 ml/(min* mmHg) VYAIRE PFT DLCOSINGLEBREATH PRED 21.21 VYAIRE PFT DLCOSINGLEBREATH LLN 15.45 VYAIRE PFT DLCOSINGLEBREATH Z-SCORE -3.21 VYAIRE PFT DLCOSINGLEBREATH % PRED 51.6 % VYAIRE PFT DLCOSINGLEBREATH PREDGar[facility] Hospital TLCO GLI (2019) VYAIRE PFT DLCOSINGLEBREATH Z-SCORE -3.21 12/03/2024 3:42 PM EDT VYAIRE PFT ZYZFAD9PAB 3.21 3.00 - 5.28 ml/(min* mmHg*L) VYAIRE PFT DLCOVAPRED 4.09 VYAIRE PFT DLCOVALLN 3.00 VYAIRE PFT DLCOVAZSCORE -1.31 VYAIRE PFT DLCOVA%PRED 78.5 % VYAIRE PFT DLCOVAPREDAUTBayhealth Medical Centervic TLCO GLI (2019) VYAIRE PFT DLCOVAZSCORE -1.31 12/03/2024 3:42 PM EDT VYAIRE PFT IMCLZPFHVTIWYI2XIH 3.41(A) 4.19 - 6.32 L VYAIRE PFT VASINGLEBREATH PRED 5.22 VYAIRE PFT VASINGLEBREATH LLN 4.19 VYAIRE PFT VASINGLEBREATH Z-SCORE -3.00 VYAIRE PFT VASINGLEBREATH % PRED 65.4 % VYAIRE PFT VASINGLEBREATH PREDDosher Memorial Hospitalvic TLCO GLI (2019) VYAIRE PFT VASINGLEBREATH Z-SCORE -3.00 12/03/2024 3:42 PM EDT VYAIRE PFT ANTKFNXCIXPMTGD8DPX 2.06 1.99 - 3.64 L VYAIRE PFT IVCSINGLEBREATH PRED 2.81 VYAIRE PFT IVCSINGLEBREATH LLN 1.99 VYAIRE PFT IVCSINGLEBREATH Z-SCORE -1.51 VYAIRE PFT IVCSINGLEBREATH % PRED 73.3 % VYAIRE PFT IVCSINGLEBREATH PREDCHRISTUS [facility] US_Quanjer GLI (2011) VYAIRE PFT WILLIAM% VCMAX PRE 94.82 % VYAIRE PFT TLC SB PRE 3.54(A) 4.61 - 7.17 L VYAIRE PFT TLCSINGLEBREATH PRED 5.88 VYAIRE PFT TLCSINGLEBREATH LLN 4.61 VYAIRE PFT TLCSINGLEBREATH Z-SCORE -3.05 VYAIRE PFT TLCSINGLEBREATH % PRED 60.2 % VYAIRE PFT TLCSINGLEBREATH PREDFramingham Union Hospital Lung volumes GLI (2019)__ VYAIRE PFT PWA7LLV 4.81 4.61 - 7.17 L VYAIRE PFT TLCPRED 5.88 VYAIRE PFT TLCLLN 4.61 VYAIRE PFT TLCULN 7.17 VYAIRE PFT TLCZSCORE -1.38 VYAIRE PFT TLC%PRED 81.9 % VYAIRE PFT TLCPREDAUTSelect Medical Special[facility] Lung volumes GLI (2019)__ VYAIRE PFT VC0PRE 2.06 1.99 - 3.64 L VYAIRE PFT VCPRED 2.81 VYAIRE PFT VCLLN 1.99 VYAIRE PFT VCULN 3.64 VYAIRE PFT VCZSCORE -1.51 VYAIRE PFT VC%PRED 73.3 % VYAIRE PFT VCPREDAUTTUBA CITY [facility]_Quanjer GLI (2011) VYAIRE PFT IC0PRE 1.06(A) 1.77 - 3.30 L VYAIRE PFT ICPRED 2.55 VYAIRE PFT ICLLN 1.77 VYAIRE PFT ICULN 3.30 VYAIRE PFT IC Z-SCORE -3.04 VYAIRE PFT IC%PRED 41.7 % VYAIRE PFT ICPREDAUTSelect Medical Specialty [facility] Lung volumes GLI (2019)__ VYAIRE PFT IDUEOVEM9BSH 3.75 2.20 - 4.35 L VYAIRE PFT FRCPLETH PRED 3.16 VYAIRE PFT FRCPLETH LLN 2.20 VYAIRE PFT FRCPLETH ULN 4.35 VYAIRE PFT FRCPLETH Z-SCORE 0.86 VYAIRE PFT FRCPLETH % PRED 118.8 % VYAIRE PFT FRCPLETH PREDAUTSelect Medical Specialty [facility] Lung volumes GLI (2019)__ VYAIRE PFT NIA8PMT 0.99 0.27 - 1.92 L VYAIRE PFT ERVPRED 0.93 VYAIRE PFT ERVLLN 0.27 VYAIRE PFT ERVULN 1.92 VYAIRE PFT ERV Z-SCORE 0.13 VYAIRE PFT ERV%PRED 106.9 % VYAIRE PFT ERVPREDAUTSelect Medical Specialty [facility] Lung volumes GLI (2019)__ VYAIRE PFT RV0PRE 2.75 1.27 - 3.39 L VYAIRE PFT RVPRED 2.23 VYAIRE PFT RVLLN 1.27 VYAIRE PFT RVULN 3.39 VYAIRE PFT RVZSCORE 0.78 VYAIRE PFT RV%PRED 123.6 % VYAIRE PFT RVPREDAUTSelect Medical Specialty Hospital [facility] Lung volumes GLI (2019)__ VYAIRE PFT RV%KSS4UHJ 57.25(A) 25.79 - 51.08 % VYAIRE PFT [...] underwent pulmonary function testing today at the [facility]. The patient underwent spirometry, lung [...] Antibody Negative Negative 08/03/2024 8:56 AM EDT [facility] Blood Venous blood specimen / Unknown Venipuncture / Unknown 08/03/2024 7:56 AM EDT 08/03/2024 8:16 AM EDT Chetan Jose MD LAB BLOOD ORDERABLES Final Re sult [facility] [address] [place] [address] * (ABNORMAL) Hemoglobin A1c (07/26/2024 1:22 AM EDT) Hemoglobin A1c 5.9(H) <5.7 % 07/26/2024 11:08 AM EDT [facility] Blood Venous blood specimen / Unknown Venipuncture / Unknown 07/26/2024 1:22 AM EDT 07/26/2024 1:45 AM EDT Narrative [facility] - 07/26/2024 11:08 AM EDT HA1C Interpretive Data: Diagnosis of Diabetes: Diabetic > or = 6.5% Pre-diabetic 5.7 to 6.4% Non-diabetic < or = 5.6% Glycemic Targets for Type I and Type II Diabetics: Non- Adults <7.0% Adults <6.0% Children and Adolescents <7.5% Source: [place] [employer]. Standards of medical care in diabetes,2017. Diabetes Care.2017:40 (suppl 1):S1-S135. HbA1c assay performed by an ion-exchange chromatography method that is certified traceable to the DCCT. us Deloris San DO LAB BLOOD ORDERABLES Final Result Performing Organization Address [facility] Co de Phone Number [facility] [address] [place] [address] * Dexa Bone Density (02/24/2023 12:42 PM [...] the non-dominant forearm was performed using a [employer] Horizon A Dual- energy X-ray Absorptiometry (DXA) [...] the non-dominant forearm was performed using a [employer] A Dual- energy X-ray Absorptiometry (DXA) scanner (software [id number]). COMPARISON/CORRELATION: No comparison. No recent correlative imaging. [...] MTB Rule-Out 07/28/2024 07/28/2024 [place] [address] Advance Directives * Full Code (Latest Code Status on File) Date Activated Date Inactivated Comments 07/20/2024 11:49 PM 08/01/2024 4:29 PM Care Teams Timber Poisoner Relationship Specialty Start Date End Date Damian Saini MD [address] [place] [address] [place] [address] PCP - General 09/12/20
== END 2024-12-13 23:59 | disposition home or self-care (01) ==
LOC: LAB.DROPOF 10:51
PROVIDERS: PCP Family Medicine; Visit Provider Student in an Organized Health Care Education/Training Program
DX: J47.9 Bronchiectasis, uncomplicated (principal)
CPT/HCPCS: 87070; 87077; 87186; 87205